=== PATIENT | female | born 1960 | race Caucasian/White ===

== ENCOUNTER → 2018-10-06 11:40 | Outpatient (CLI) | payer BC, SELFPAY ==
--- NOTE | 2018-10-06 11:49 | XR_ITS ---
XR chest 2V HISTORY: Pneumonia ITS.REASON: F/U PNEUMONIA ORDERING PHYSICIAN: Jaime Brenner PATIENT AGE: 58 years COMPARISON: 09/25/2018 FINDINGS: Unremarkable cardiovascular structures. The right lower lobe infiltrate is once again noted patient some improvement was some decreased attenuation compared to the previous exam. No effusions. The left lung is clear. IMPRESSION: Persistent but improving right lower lobe pneumonia. Recommend follow-up until clear
== END ==
PROVIDERS: PCP Family Medicine; Visit Provider Family Medicine
DX: J18.9 Pneumonia, unspecified organism (principal)
CPT/HCPCS: 71046

== ENCOUNTER 2023-10-05 14:33 | Outpatient (CLI) | payer BC, OTHER, SELFPAY ==
[2023-10-05 15:29] LABS: Hemoglobin A1C 7.2 % (4.0-6.0)
== END 2023-10-05 23:59 | disposition home or self-care (01) ==
LOC: LAB 14:36
PROVIDERS: PCP Physician Assistant; Visit Provider Physician Assistant
DX: E11.9 Type 2 diabetes mellitus without complications (principal); Z79.84 Long term (current) use of oral hypoglycemic drugs
CPT/HCPCS: 36415; 83036

== ENCOUNTER 2023-10-27 11:00 | Outpatient (CLI) | payer BC, OTHER, SELFPAY ==
--- NOTE | 2023-10-27 11:18 | XR_ITS ---
FINAL REPORT CLINICAL HISTORY: cellulitis, DFU COMPARISON: None FINDINGS: LEFT FOOT: Three views of the left foot were obtained. There is no acute fracture or dislocation. There is mild degenerative change. Calcaneal spurs are noted. There is no evidence of bony erosion. There is no soft tissue abnormality. IMPRESSION: Mild degenerative change without acute bony abnormality. Reviewed, Interpreted and Dictated by Prasanth Corrigan III, MD Transcribed by Aissatou Araujo Authenticated and [facility]
--- NOTE | 2023-10-27 11:18 | XR_ITS ---
FINAL REPORT CLINICAL HISTORY: cellulitis, DFU COMPARISON: None FINDINGS: RIGHT FOOT: Three views of the right foot were obtained. There is no acute fracture or dislocation. There is severe degenerative change of the 1st MTP. Mild degenerative change is noted elsewhere in the foot. There are small calcaneal spurs. There is no evidence of bony erosion. There is no soft tissue abnormality. IMPRESSION: Mild and severe degenerative changes without acute bony abnormality. Reviewed, Interpreted and Dictated by Prasanth Corrigan III, MD Transcribed by Aissatou Araujo Authenticated and [facility]
[2023-10-27 11:54] LABS: Basophils # 0.1 K/mm3 (0-0.2); Basophils % 0.8 % (0.1-2.0); Eosinophils # 0.4 K/mm3 (0.0-0.4); Eosinophils % 4.2 % (0.1-12.0); Hematocrit 38.1 % (37.0-47.0); Hemoglobin 12.2 g/dL (12.2-16.2); Lymphocytes # 2.5 K/mm3 (0.7-4.5); Lymphocytes % 25.4 % (10-50); Mean Corpuscular Hemoglobin 29.5 pg (27.0-31.2); Mean Platelet Volume 7.9 fl (7.4-10.4); Monocytes # 0.5 K/mm3 (0.1-1.0); Monocytes % 5.2 % (1.7-9.3); Neutrophils # 6.3 K/mm3 (1.8-7.8); Neutrophils % 64.4 % (37.0-80.0); Platelet Count 281 K/mm3 (142-424); Red Blood Count 4.14 M/mm3 (4.20-5.40); Red Cell Distribution Width 13.7 % (11.5-17.5); White Blood Count 9.8 K/mm3 (4.8-10.8)
[2023-10-27 12:15] LABS: Alanine Aminotransferase 32 U/L (12-78); Albumin Level 4.2 g/dl (3.5-5.0); Albumin/Globulin Ratio 1.6 (1.1-1.8); Alkaline Phosphatase 88 U/L (38-126); Anion Gap 15.4 mEq/L (5-15); Aspartate Amino Transferase 30 U/L (14-36); Bilirubin,Total 0.6 mg/dl (0.2-1.3); Blood Urea Nitrogen 19 mg/dl (7-17); Calcium 10.1 mg/dl (8.4-10.2); Carbon Dioxide 29 mmol/L (22.0-30.0); Chloride 101 mmol/L (98-107); Estimated Glomerular Filt Rate 63 ml/min (>60); GFR (African American) 77 ML/MIN (>60); Globulin 2.7 g/dL (1.3-3.2); Glucose 230 mg/dl (74-100); Potassium 4.4 mmoL/L (3.5-5.1); Sodium 141 mmol/L (136-145); Total Protein,Serum 6.9 g/dl (6.3-8.2); Uric Acid 3.9 mg/dl (2.5-6.2)
[2023-10-27 12:20] LABS: C-Reactive Protein 6.1 mg/L (0-4)
[2023-10-27 12:38] LABS: Erythrocyte Sedimentation Rate 22 mm/hr (0-30)
[2023-11-04 09:26] LABS: 1,25 Dihydroxy Vitamin D 24 pg/mL (.); 1,25-Dihydroxy, Vitamin D-2 <10 pg/mL (.); 1,25-Dihydroxy, Vitamin D-3 24 pg/mL (.)
== END 2023-10-27 23:59 | disposition home or self-care (01) ==
LOC: LAB 11:01
PROVIDERS: PCP Physician Assistant; Visit Provider Podiatrist
DX: E11.621 Type 2 diabetes mellitus with foot ulcer (principal); Z79.84 Long term (current) use of oral hypoglycemic drugs; L97.509 Non-pressure chronic ulcer of other part of unspecified foot with unspecified severity; L03.115 Cellulitis of right lower limb; Z68.26 Body mass index [BMI] 26.0-26.9, adult; M19.071 Primary osteoarthritis, right ankle and foot; M19.072 Primary osteoarthritis, left ankle and foot
CPT/HCPCS: 36415; 73630; 80053; 82652; 84550; 85025; 85651; 86140

== ENCOUNTER 2023-11-03 16:35 | Outpatient (CLI) | payer BC, OTHER, SELFPAY | END 2023-11-03 23:59 | disposition home or self-care (01) | LOC: LAB.DROPOF 16:36 | PROVIDERS: PCP Nurse Practitioner; Visit Provider Nurse Practitioner | DX: L97.412 Non-pressure chronic ulcer of right heel and midfoot with fat layer exposed (principal); E11.621 Type 2 diabetes mellitus with foot ulcer; B95.7 Other staphylococcus as the cause of diseases classified elsewhere; B95.62 Methicillin resistant Staphylococcus aureus infection as the cause of diseases classified elsewhere; Z79.84 Long term (current) use of oral hypoglycemic drugs | CPT/HCPCS: 87070; 87077; 87186; 87205 ==

== ENCOUNTER 2024-01-06 16:35 | Outpatient (CLI) | payer BC, OTHER, SELFPAY ==
[2024-01-06 17:04] LABS: Basophils # 0.1 K/mm3 (0-0.2); Basophils % 1.7 % (0.1-2.0); Eosinophils # 0.4 K/mm3 (0.0-0.4); Eosinophils % 5.4 % (0.1-12.0); Hematocrit 41.1 % (37.0-47.0); Hemoglobin 12.9 g/dL (12.2-16.2); Lymphocytes # 3.7 K/mm3 (0.7-4.5); Lymphocytes % 49.6 % (10-50); Mean Corpuscular HGB Conc 31.4 g/dL (31.8-35.4); Mean Corpuscular Hemoglobin 30.4 pg (27.0-31.2); Mean Corpuscular Volume 96.9 fl (81-99); Mean Platelet Volume 7.9 fl (7.4-10.4); Monocytes # 0.4 K/mm3 (0.1-1.0); Neutrophils # 2.8 K/mm3 (1.8-7.8); Neutrophils % 38.3 % (37.0-80.0); Platelet Count 319 K/mm3 (142-424); Red Blood Count 4.24 M/mm3 (4.20-5.40); White Blood Count 7.4 K/mm3 (4.8-10.8)
[2024-01-06 17:27] LABS: Erythrocyte Sedimentation Rate 16 mm/hr (0-30)
[2024-01-06 17:54] LABS: Potassium 4.3 mmoL/L (3.5-5.1); Sodium 137 mmol/L (136-145)
[2024-01-06 17:55] LABS: Alanine Aminotransferase 32 U/L (12-78); Albumin Level 4.6 g/dl (3.5-5.0); Albumin/Globulin Ratio 1.5 (1.1-1.8); Alkaline Phosphatase 72 U/L (38-126); Anion Gap 14.3 mEq/L (5-15); Aspartate Amino Transferase 33 U/L (14-36); Bilirubin,Total 0.5 mg/dl (0.2-1.3); Blood Urea Nitrogen 17 mg/dl (7-17); C-Reactive Protein 0.7 mg/L (0-4); Calcium 9.9 mg/dl (8.4-10.2); Carbon Dioxide 25 mmol/L (22.0-30.0); Chloride 102 mmol/L (98-107); Estimated Glomerular Filt Rate 85 ml/min (>60); GFR (African American) 102 ML/MIN (>60); Globulin 3.1 g/dL (1.3-3.2); Glucose 181 mg/dl (74-100); Total Protein,Serum 7.7 g/dl (6.3-8.2); Uric Acid 3.3 mg/dl (2.5-6.2)
== END 2024-01-06 23:59 | disposition home or self-care (01) ==
LOC: LAB 16:36
PROVIDERS: PCP Family Medicine; Visit Provider Nurse Practitioner
DX: E11.9 Type 2 diabetes mellitus without complications (principal); M1A.09X0 Idiopathic chronic gout, multiple sites, without tophus (tophi)
CPT/HCPCS: 36415; 80053; 84550; 85025; 85651; 86140

== ENCOUNTER 2024-01-19 14:57 | Outpatient (CLI) | payer BC, OTHER, SELFPAY ==
--- NOTE | 2024-01-19 | US_ITS ---
FINAL REPORT CLINICAL HISTORY: DM, bilateral rest pain, bilateral rest pain COMPARISON: None FINDINGS: ANKLE-BRACHIAL PRESSURE INDICES Pressure indices are as follows: RIGHT LOWER EXTREMITY: Ankle-brachial pressure index: 1.04 Comments: Normal LEFT LOWER EXTREMITY: Ankle-brachial pressure index: 0.98 Comments: Normal CONCLUSION: No evidence of significant obstructive peripheral vascular disease of the lower extremities Reviewed, Interpreted and Dictated by Prasanth Corrigan III, MD Transcribed by Vanessa Jung Authenticated and [facility]
== END 2024-01-19 23:59 | disposition home or self-care (01) ==
LOC: RT 14:58
PROVIDERS: PCP Family Medicine; Visit Provider Podiatrist
DX: M19.071 Primary osteoarthritis, right ankle and foot (principal); M19.072 Primary osteoarthritis, left ankle and foot
CPT/HCPCS: 93923

== ENCOUNTER 2024-01-31 14:59 | Outpatient (CLI) | payer BC, OTHER, SELFPAY ==
--- NOTE | 2024-01-31 15:00 | MR_ITS ---
FINAL REPORT CLINICAL HISTORY: evaluate for Subchon. bone cyst, surgical planning COMPARISON: None FINDINGS: Multiplanar MR imaging of the right foot was performed without contrast. On the sagittal images, there are marked hypertrophic changes at the first metatarsal phalangeal joint. Advanced joint space narrowing is noted. There is hypertrophic osteophyte formation and degenerative subchondral cyst formation at the distal first metatarsal and at the base of the first proximal phalanx. In addition, there is a large ossific fragment at the dorsal aspect of the first metatarsal phalangeal joint measuring 1.9 cm, well-seen on image 25 of series 7. Mild hammertoe deformities are noted of the 2nd through 5th digits. The bony structures are intact without evidence of fracture. The flexor and extensor tendons are intact. The musculature is intact. The plantar aponeurosis is intact. No soft tissue mass or cyst is identified. IMPRESSION: Marked hypertrophic changes of osteoarthritis at the first metatarsophalangeal joint with osteophytes, fragmentation, and degenerative cyst formation. Reviewed, Interpreted and Dictated by Twan Abdalla MD Transcribed by Aissatou Araujo Authenticated and . [facility]
== END 2024-01-31 23:59 | disposition home or self-care (01) ==
LOC: RAD 15:00
PROVIDERS: PCP Family Medicine; Visit Provider Podiatrist
DX: E11.8 Type 2 diabetes mellitus with unspecified complications (principal); M1A.09X0 Idiopathic chronic gout, multiple sites, without tophus (tophi)
CPT/HCPCS: 73718

== ENCOUNTER 2024-01-31 16:49 | Outpatient (CLI) | payer BC, OTHER, SELFPAY ==
[2024-01-31 18:05] LABS: Basophils # 0.1 K/mm3 (0-0.2); Basophils % 1.5 % (0.1-2.0); Eosinophils # 0.5 K/mm3 (0.0-0.4); Eosinophils % 6.8 % (0.1-12.0); Hematocrit 38.5 % (37.0-47.0); Hemoglobin 11.7 g/dL (12.2-16.2); Lymphocytes % 52.5 % (10-50); Mean Corpuscular HGB Conc 30.4 g/dL (31.8-35.4); Mean Corpuscular Hemoglobin 29.6 pg (27.0-31.2); Mean Corpuscular Volume 97.5 fl (81-99); Mean Platelet Volume 8.1 fl (7.4-10.4); Monocytes # 0.4 K/mm3 (0.1-1.0); Monocytes % 5.5 % (1.7-9.3); Neutrophils # 2.6 K/mm3 (1.8-7.8); Neutrophils % 33.8 % (37.0-80.0); Platelet Count 378 K/mm3 (142-424); Red Blood Count 3.95 M/mm3 (4.20-5.40); White Blood Count 7.7 K/mm3 (4.8-10.8)
[2024-01-31 18:10] LABS: Albumin Level 4.3 g/dl (3.5-5.0)
[2024-01-31 18:13] LABS: Alanine Aminotransferase 23 U/L (12-78); Alkaline Phosphatase 90 U/L (38-126); Aspartate Amino Transferase 23 U/L (14-36); Bilirubin,Direct 0.3 mg/dl (0.0-0.4); Bilirubin,Indirect 0.3 mg/dL (0.0-0.9); Bilirubin,Total 0.6 mg/dl (0.2-1.3); Bilirubin,Unconjugated 0.3 mg/dL (0.0-1.1); Estimated Glomerular Filt Rate 72 ml/min (>60); GFR (African American) 88 ML/MIN (>60); Total Protein,Serum 6.9 g/dl (6.3-8.2)
[2024-01-31 18:44] LABS: MANUAL DIFFERENTIAL MANUAL DIFFERENTIAL (MANUAL DIFF)
[2024-01-31 18:51] LABS: Uric Acid 3.9 mg/dl (2.5-6.2)
[2024-01-31 22:16] LABS: Anisocytosis 1+; Burr Cells 1+; Eosinophils % 6 % (0-3); Lymphocytes % 64 % (10-50); Monocytes % 2 % (2-9); Neutrophils % 28 % (42-76); Ovalocytes 1+; Poikilocytosis 1+; Total Cells Counted 100
[2024-01-31 22:17] LABS: Platelet Estimate Slight Increase
== END 2024-01-31 23:59 | disposition home or self-care (01) ==
LOC: LAB 16:51
PROVIDERS: PCP Family Medicine; Visit Provider Internal Medicine
DX: M06.09 Rheumatoid arthritis without rheumatoid factor, multiple sites (principal); Z79.899 Other long term (current) drug therapy; M10.09 Idiopathic gout, multiple sites
CPT/HCPCS: 36415; 80076; 82565; 84550; 85007; 85025; 85027

== ENCOUNTER 2024-03-06 09:57 | Outpatient (CLI) | payer BC, OTHER, SELFPAY | END 2024-03-06 23:59 | disposition home or self-care (01) | LOC: LAB.DROPOF 03-07 09:57 | PROVIDERS: PCP Podiatrist; Visit Provider Podiatrist | DX: E11.621 Type 2 diabetes mellitus with foot ulcer (principal); L97.411 Non-pressure chronic ulcer of right heel and midfoot limited to breakdown of skin; Z79.84 Long term (current) use of oral hypoglycemic drugs | CPT/HCPCS: 87070; 87205 ==

== ENCOUNTER 2024-03-20 15:52 | Outpatient (CLI) | payer BC, OTHER, SELFPAY ==
--- NOTE | 2024-03-20 16:04 | XR_ITS ---
FINAL REPORT CLINICAL HISTORY: Nonspecific cough COMPARISON: None FINDINGS: Two views of the chest were obtained. The heart size and pulmonary vascularity are within normal limits. The mediastinum is normal. No acute pulmonary abnormality is identified. There is no pneumothorax. The bony thorax is intact. IMPRESSION: No active cardiopulmonary disease. Reviewed, Interpreted and Dictated by Prasanth Corrigan III, MD Transcribed by Aissatou Araujo Authenticated and [facility]
--- NOTE | 2024-03-20 16:19 | ECG_ITS ---
APPROVED REPORT Exam: Resting ECG HR:75 bpm ECG Measurements Heart Rate 75 AXES SD 160 P 67 QRSd 78 QRS 66 QT 382 T 66 QTc 411 Conclusion SINUS RHYTHM NORMAL ECG UNCONFIRMED REPORT Electronically signed by : Timoteo Jefferson MD 03/21/2024 08:36:03
[2024-03-20 16:29] LABS: Basophils # 0.1 K/mm3 (0-0.2); Basophils % 1.6 % (0.1-2.0); Eosinophils # 0.3 K/mm3 (0.0-0.4); Eosinophils % 3.8 % (0.1-12.0); Hematocrit 37.9 % (37.0-47.0); Hemoglobin 12.7 g/dL (12.2-16.2); Lymphocytes # 3.7 K/mm3 (0.7-4.5); Lymphocytes % 47.9 % (10-50); Mean Corpuscular HGB Conc 33.6 g/dL (31.8-35.4); Mean Corpuscular Hemoglobin 29.9 pg (27.0-31.2); Mean Corpuscular Volume 89.1 fl (81-99); Mean Platelet Volume 7.8 fl (7.4-10.4); Monocytes # 0.3 K/mm3 (0.1-1.0); Monocytes % 4.1 % (1.7-9.3); Neutrophils # 3.3 K/mm3 (1.8-7.8); Neutrophils % 42.7 % (37.0-80.0); Platelet Count 306 K/mm3 (142-424); Red Blood Count 4.25 M/mm3 (4.20-5.40); Red Cell Distribution Width 13.6 % (11.5-17.5); White Blood Count 7.7 K/mm3 (4.8-10.8)
[2024-03-20 16:56] LABS: Alanine Aminotransferase 32 U/L (12-78); Albumin Level 4.7 g/dl (3.5-5.0); Albumin/Globulin Ratio 1.8 (1.1-1.8); Alkaline Phosphatase 76 U/L (38-126); Anion Gap 14.4 mEq/L (5-15); Aspartate Amino Transferase 31 U/L (14-36); Bilirubin,Total 0.6 mg/dl (0.2-1.3); Blood Urea Nitrogen 15 mg/dl (7-17); Calcium 9.6 mg/dl (8.4-10.2); Carbon Dioxide 22 mmol/L (22.0-30.0); Chloride 104 mmol/L (98-107); Estimated Glomerular Filt Rate 72 ml/min (>60); GFR (African American) 88 ML/MIN (>60); Globulin 2.6 g/dL (1.3-3.2); Glucose 150 mg/dl (74-100); Potassium 4.4 mmoL/L (3.5-5.1); Sodium 136 mmol/L (136-145); Total Protein,Serum 7.3 g/dl (6.3-8.2)
[2024-03-20 17:02] LABS: Erythrocyte Sedimentation Rate 16 mm/hr (0-30)
[2024-03-20 17:03] LABS: C-Reactive Protein 0.8 mg/L (0-4)
[2024-03-20 17:39] LABS: Hemoglobin A1C 7.1 % (4.0-6.0)
== END 2024-03-20 23:59 | disposition home or self-care (01) ==
LOC: LAB 15:53
PROVIDERS: PCP Family Medicine; Visit Provider Podiatrist
DX: Z01.818 Encounter for other preprocedural examination (principal); E11.40 Type 2 diabetes mellitus with diabetic neuropathy, unspecified
CPT/HCPCS: 36415; 71046; 80053; 83036; 85025; 85651; 86140; 93005

== ENCOUNTER 2024-04-19 09:12 | Day surgery (SDC) | payer BC, OTHER, SELFPAY ==
[2024-04-18 09:32] VITALS: BMI 25.5
[2024-04-19 10:24] VITALS: BP 114/66; PULSE 72; RESP 18; TEMP 36.1; O2SAT 100; BMI 25.5
[2024-04-19] MEDS: LACTATED RINGERS 1000ML 1,000 ML 25 ML IV (10:32)
[2024-04-19 10:49] LABS: POC Glucose,Bedside 127 (70-110)
--- NOTE | 2024-04-19 10:59 | P.PNANES_ITS ---
[facility] Disclaimer: The information contained in this section may have been updated after the patient was seen, as this information can be updated by other users. Medical History HLD (hyperlipidemia) Rheumatoid arthritis Diabetic foot ulcer Diabetes mellitus Surgical History History of laparoscopic cholecystectomy History of hysterectomy Family History Other Diabetes Hypertension Social History Smoking Status: Never smoker alcohol intake: never substance use type: denies use current occupational status: employed Travel in the last 8 weeks: None household members: spouse, family and children housing: house [facility] Anesthesia Checklist Patient Identification Patient Identification: Arm Band and Family Structural Data Admitted From: Emergency Dept Planned Operative Procedure/s: Right foot ound debridement Consent for Planned Operative Procedure(s) Verified: Yes Verified Documents: Surgical Consent and History and Physical NPO Status Verified Time NPO: 00:00 Additional verifications Patient : No Anesthesia Reactions: No Hx Blood Transfusions: No Blood Transfusion Reaction: No Cephalosporin Allergy: No Previous Colonoscopy: Yes Airway Assessment Mallampati Score:: Class I C-Spine Mobility Assessed: Yes TMJ Mobility Assessed: Yes Dentition: Good Dentition Neurological Assessment Level of Consciousness: Awake, Alert, Appropriate and Follows Commands Hx Seizures: No Numbness or tingling in extremities: No Anesthesia Plan Anesthesia Risk discussed: Yes ASA Class: II Anesthesia Type: General Preoperative Comments Pre-Operative Comments: Autoimmune disease under diagnostics. NIDDM. Matias MCMAHON. RH.
[2024-04-19] MEDS: VANCOMYCIN/WATER FOR INJ (PEG) 1.25 GM/250 ML PIGGYBACK IV (11:20)
[2024-04-19] MEDS: BUPIVACAINE 0.5% 30ML VIAL 150 MG (11:54)
[2024-04-19] MEDS: GENTAMICIN 80 MG/2 ML VIAL (11:54)
[2024-04-19 12:20] VITALS: BP 144/86; PULSE 83; RESP 16; TEMP 36.2; O2SAT 98
--- NOTE | 2024-04-19 12:28 | EXP.ANES.I ---
[facility] Anesthesia Record Part I Anesthesia Record I Intake, IV Amount: 650 Hydration: Adequate Estimated blood loss (mL): 14 Urine output (mL): 0 Blood Products used (#): none Blood Pressure: 144/86 SaO2: 98 Pulse Rate: 83 Airway Patency: Patent Respiratory Rate: 16 Temperature: 97.1 F Patient is:: Drowsy and Stable Stable to PACU at:: 12:20
[2024-04-19 12:30] VITALS: BP 136/84; BP 144/86; PULSE 79; PULSE 83; RESP 16; TEMP 36.2; O2SAT 98
[2024-04-19 12:31] LABS: POC Glucose,Bedside 110 (70-110)
--- NOTE | 2024-04-19 12:34 | EXP.OP.NOTE ---
Date of procedure: 04/19/24 Pre-op Diagnosis:: Right diabetic foot ulcer Right foot cellulitis Right first MPJ hallux rigidus, OA RA Gout Post-op Diagnosis:: Same Procedure performed:: Right foot wound debridement Cheilectomy first metatarsal wo implant Delayed primary closure Bone biopsy Surgeon:: Heaven Ng DPM LOAN OPERATIONS SPECIALIST:: Frank Poole Anesthesia: GETA and local (30cc 0.5% Marcaine plain) Estimated blood loss (mL): 15 Clinical Note:: Patient is a 63-year-old diabetic female with a history of gout and RA. Patient has had diabetic foot ulcer with recurrence and cellulitis. 03/06/2024 right foot wound culture had no growth. Has had x-rays, CT and MRI right foot. No obvious evidence of osteomyelitis noted but concern discussed due to recurrent ulceration and difficulty with healing. Images were discussed with the patient. We discussed conservative versus surgical treatment options. Discussed stage surgery options. Stage 1: right foot wound debridement, ulcer excision, bone biopsy, (gout specimen and r/o OM). Then discussed if bx is negative for infection, then plan stage 2: right foot 1st MTPJ fusion. We discussed conservative care including continued oral vs IV antibiotics and local wound care versus surgical incision and drainage or ampuation if OM noted. Patient understands that they could have wound healing complications including delayed healing and infection. We discussed that if the wound does not heal, it is possible that they may need further debridement. Patient understands if infection spreads into the bone, it may warrant proximal amputation and could result in further loss of digits, loss of partial foot or loss of leg. We discussed the risks and benefits in great detail. Other surgical risks include: prolonged pain and swelling, further infection requiring oral or IV antibiotics, delay in healing of soft tissue or bone, nerve or blood vessel damage, CRPS/RSD, DV/PE, anesthesia complications, and even . All questions answered. Patient verbalized understanding. Written consent obtained. Operative findings:: Right dorsal foot first metatarsal ulcer mostly healed. Periwound cellulitis noted. Wound: 100% brown eschar and measured 0.4 x 0.2 x 0.0 cm. Wound excised completely. No underlying purulence malodor or drainage noted. Significant spurring to the dorsal aspect of the first MTPJ. Bone spurs were removed and more soft with no purulence. Significant end-stage arthritis noted to the first MTPJ secondary to arthritis, gout, RA and diabetes. This is a staged planned surgery to rule out infection and osteomyelitis prior to proceeding with stage II: Right first MTPJ fusion. Operative note:: On this date and time patient was deemed an appropriate surgical candidate. With informed consent signed, the patient was taken to the operating theater. The patient was positioned supine. General anesthesia was induced. No tourniquet used. Pre-op right foot and ankle block given with 30 cc 0.5% marcaine plain. IV Vanco infused. Right wound debridement: The lower extremity was prepped and draped in normal sterile fashion. Ulcer noted to the medial dorsal first MTPJ. See operative finding for details. There was no periwound maceration. Sharp excisional full-thickness debridement with a 15 blade through skin into subcutaneous tissue. No obvious purulence or deep signs of infection noted. Decision made to excise wound full-thickness as skin was fragile and compromised from fibrotic scar tissue from several ulcer healing and reulcerating. Wound was excised. Bleeding skin edges. Right foot cheilectomy, bone biopsy: Next full-thickness dissection down to level of the bone. Significant first metatarsal exostosis and bone spur noted. Rongeur used to remove the bone spur. Piece was sent for bone culture and a piece for pathology. Next synovitic tissue from the first metatarsal phalangeal joint was excised. Attention was directed more proximal where a clean rongeur was used to remove a piece of the bone directly underlying the prior wound site, it was sent for bone culture. The bone was soft but no purulence noted from the bone. Significant arthritic change to both the base of the proximal phalanx of the first metatarsal secondary to arthritis, RA, gout. Wound was flushed with gentamicin irrigation Right foot delayed primary closure: Post debridement, there was some bleeding was noted. The wound was reexplored and no further signs of infection noted. Vicryl was used to reapproximate the capsule over the joint. Nylon was used to close skin in an interrupted simple suture fashion. Xeroform, Betadine soaked gauze, dry sterile dressing then applied to the right foot. Patient tolerated the procedure and local anesthesia well, without complications. Discharge/Plan: Ok to discharge home when ready and vss. Patient is to maintain dressing clean dry and intact. Elevate on two pillows. Continue antibiotics (Clinda). Partial weight bearing to the right lower extremity in fracture boot with walker. Follow up as scheduled for dressing change. Condition: stable Disposition: same day Specimens:: Right tissue ulcer culture Right 1st MTPJ bone culture Right 1st metatarsal bone culture Right 1st metatarsal bone path Complications:: None
--- NOTE | 2024-04-19 12:45 | XR_ITS ---
FINAL REPORT CLINICAL HISTORY: Post cheilectomy, bone bx COMPARISON: None FINDINGS: RIGHT FOOT: Three views of the right foot were obtained. There is no acute fracture or dislocation. There is severe degenerative change of the first MTP joint. Small calcaneal spurs are present as well. There is no soft tissue abnormality. IMPRESSION: Severe degenerative change of the first MTP joint as described. Reviewed, Interpreted and Dictated by Prasanth Corrigan III, MD Transcribed by Vanessa Jung Authenticated and . [facility]
[2024-04-19 12:50] VITALS: BP 110/76; BP 136/84; PULSE 78; PULSE 79; RESP 16; O2SAT 98
[2024-04-19 13:05] VITALS: BP 139/55; PULSE 75; RESP 16; O2SAT 98
[2024-04-19 13:20] VITALS: BP 140/86; PULSE 75; RESP 16; O2SAT 98
--- NOTE | 2024-04-20 13:02 | P.PNANES_ITS ---
[facility] Anesthesia Record Part II Anesthesia Record Part II Discharge Time: 12:50 Destination: Surgical Day Care (OP Surgery) PACU nurse assessment reviewed?: Yes Patient Condition:: Good Anesthesia Complications:: None Swallowing reflex intact?: Yes Airway Patency: Patent Cyanosis?: No Blood Pressure: 136/84 SaO2: 98 Respiratory Rate: 16 Pulse Rate: 79 Temperature: 97.1 F Mental Status: Alert & Oriented Pain level:: 0 Nausea and/or vomitting:: None Intake, IV Amount: 0 Hydration: Adequate
[2024-04-20 13:04] VITALS: BP 136/84; PULSE 79; RESP 16; O2SAT 98
[2024-04-20 13:12] VITALS: TEMP 36.2
== END 2024-04-19 13:30 | disposition home or self-care (01) ==
PROVIDERS: PCP Family Medicine; Visit Provider Podiatrist
PROC: (CPT 11042; principal; 2024-04-19 10:45)
DX: E11.621 Type 2 diabetes mellitus with foot ulcer (principal); I10 Essential (primary) hypertension; Z79.84 Long term (current) use of oral hypoglycemic drugs; Z79.899 Other long term (current) drug therapy; L97.411 Non-pressure chronic ulcer of right heel and midfoot limited to breakdown of skin; M79.671 Pain in right foot; M19.071 Primary osteoarthritis, right ankle and foot; M77.8 Other enthesopathies, not elsewhere classified
CPT/HCPCS: 11042; 28289; 73630; 82962; 87070; 87205; 88304; 96374; C9144; J1100; J1580; J2250; J2405; J3010; J3372; J7120

== ENCOUNTER 2024-05-05 15:14 | Outpatient (CLI) | payer BC, OTHER, SELFPAY | END 2024-05-05 23:59 | disposition home or self-care (01) | LOC: LAB.DROPOF 05-08 11:44 | PROVIDERS: PCP Family Medicine; Visit Provider Family Medicine | DX: N39.0 Urinary tract infection, site not specified (principal); B96.4 Proteus (mirabilis) (morganii) as the cause of diseases classified elsewhere | CPT/HCPCS: 87086; 87088; 87186 ==

== ENCOUNTER 2024-05-18 11:25 | Outpatient (CLI) | payer BC, OTHER, SELFPAY ==
--- NOTE | 2024-05-18 11:46 | XR_ITS ---
FINAL REPORT CLINICAL HISTORY: foot pain COMPARISON: 04/19/2024 FINDINGS: AP, oblique and lateral views of the right foot were obtained. There is no acute fracture or dislocation. Again seen is advanced degenerative disease at the first MTP joint with large osteophytes and multiple subchondral cysts. There is periosteal reaction along the medial aspect of the distal first metatarsal, superimposed osteomyelitis is not excluded. There is diffuse soft tissue edema of the forefoot. IMPRESSION: New periosteal reaction along the medial aspect of the distal first metatarsal, osteomyelitis of the first MTP joint superimposed upon advanced degenerative disease is not excluded. Consider MRI if indicated. Reviewed, Interpreted and Dictated by Krissy John MD Transcribed by Sabrina Skelton Authenticated and [facility]
[2024-05-18 11:59] LABS: Basophils # 0.1 K/mm3 (0-0.2); Eosinophils # 0.5 K/mm3 (0.0-0.4); Eosinophils % 6.2 % (0.1-12.0); Hematocrit 37.9 % (37.0-47.0); Hemoglobin 12.2 g/dL (12.2-16.2); Lymphocytes # 3.4 K/mm3 (0.7-4.5); Lymphocytes % 42.5 % (10-50); Mean Corpuscular HGB Conc 32.2 g/dL (31.8-35.4); Mean Corpuscular Hemoglobin 29.1 pg (27.0-31.2); Mean Corpuscular Volume 90.5 fl (81-99); Mean Platelet Volume 9.9 fl (7.4-10.4); Monocytes # 0.5 K/mm3 (0.1-1.0); Monocytes % 5.7 % (1.7-9.3); Neutrophils # 3.6 K/mm3 (1.8-7.8); Neutrophils % 44.4 % (37.0-80.0); Platelet Count 295 K/mm3 (142-424); Red Blood Count 4.19 M/mm3 (4.20-5.40); Red Cell Distribution Width 12.5 % (11.5-17.5); White Blood Count 8.1 K/mm3 (4.8-10.8)
--- NOTE | 2024-05-18 12:09 | ECG_ITS ---
APPROVED REPORT Exam: Resting ECG HR:72 bpm ECG Measurements Heart Rate 72 AXES NH 156 P 65 QRSd 79 QRS 66 QT 379 T 67 QTc 403 Conclusion SINUS RHYTHM LOW QRS VOLTAGE IN PRECORDIAL LEADS [QRS DEFLECTION < 1.0 mV IN CHEST LEADS] BORDERLINE ECG UNCONFIRMED REPORT Electronically signed by : Timoteo Jefferson MD 05/18/2024 13:58:33
[2024-05-18 12:31] LABS: Alanine Aminotransferase 30 U/L (12-78); Albumin Level 4.6 g/dl (3.5-5.0); Albumin/Globulin Ratio 1.8 (1.1-1.8); Alkaline Phosphatase 91 U/L (38-126); Anion Gap 11.5 mEq/L (5-15); Aspartate Amino Transferase 30 U/L (14-36); Bilirubin,Total 0.5 mg/dl (0.2-1.3); Blood Urea Nitrogen 14 mg/dl (7-17); Carbon Dioxide 30 mmol/L (22.0-30.0); Chloride 103 mmol/L (98-107); Estimated Glomerular Filt Rate 63 ml/min (>60); GFR (African American) 77 ML/MIN (>60); Globulin 2.5 g/dL (1.3-3.2); Glucose 155 mg/dl (74-100); Potassium 4.5 mmoL/L (3.5-5.1); Sodium 140 mmol/L (136-145); Total Protein,Serum 7.1 g/dl (6.3-8.2)
[2024-05-18 12:43] LABS: C-Reactive Protein 0.7 mg/L (0-4)
[2024-05-18 13:06] LABS: Erythrocyte Sedimentation Rate 15 mm/hr (0-30)
== END 2024-05-18 23:59 | disposition home or self-care (01) ==
LOC: LAB 11:27
PROVIDERS: PCP Family Medicine; Visit Provider Podiatrist
DX: Z01.818 Encounter for other preprocedural examination (principal); M79.671 Pain in right foot
CPT/HCPCS: 36415; 73630; 80053; 85025; 85651; 86140; 93005

== ENCOUNTER 2024-05-24 10:32 | Day surgery (SDC) | payer BC, OTHER, SELFPAY ==
[2024-05-18 16:56] VITALS: BMI 25.8
[2024-05-24] VITALS (9 sets, daily range): BP systolic 115–148; BP diastolic 65–86; PULSE 77–96; RESP 14–18; TEMP 36.2–36.7; O2SAT 95–100
[2024-05-24] MEDS: VANCOMYCIN/WATER FOR INJ (PEG) 1.5 GM/300 ML PIGGYBACK IV (11:00)
[2024-05-24] MEDS: LACTATED RINGERS 1000ML 1,000 ML 25 ML IV (11:09)
--- NOTE | 2024-05-24 11:15 | P.PNANES_ITS ---
[facility] Disclaimer: The information contained in this section may have been updated after the patient was seen, as this information can be updated by other users. Medical History Gout HLD (hyperlipidemia) Rheumatoid arthritis Diabetic foot ulcer Diabetes mellitus Surgical History History of laparoscopic cholecystectomy History of hysterectomy Family History Other Diabetes Hypertension Social History (Updated 05/24/24 @ 10:51 by Rachel Blanco RN) Smoking Status: Never smoker alcohol intake: never substance use type: denies use current occupational status: employed Travel in the last 8 weeks: None household members: spouse, family and children housing: house Have you lived/traveled outside [place] in past 30 days?: No Contact w/someone who lives/traveled outside [place] past 30 days?: No Exposure to someone with infectious disease in past 14 days?: No Do you have a fever (greater than 100.4 F or 38 C)?: No Have you tested positive for COVID-19: No Exposed to someone with COVID-19 in past 14 days?: No Do you have a sore throat?: No Do you have a cough?: No Do you have any weakness?: No Are you experiencing any nausea/vomitting?: No Do you have any diarrhea?: No Are you experiencing any unusual bleeding?: No Do you have any muscle aches/pain?: No Do you have any abdominal pain?: No Are you experiencing loss of taste or smell?: No [facility] Anesthesia Checklist Patient Identification Patient Identification: Arm Band, Family and Verbal (Name & ) Structural Data Admitted From: Home Planned Operative Procedure/s: RT 1st metatarsal phalangeal joint arthrodesis, poss calcaneal bone graft Consent for Planned Operative Procedure(s) Verified: Yes Verified Documents: Surgical Consent and History and Physical NPO Status Verified Time NPO: 00:00 Chart Verification Results Verified: CBC, BMP, ECG and Chest Xray Additional verifications Fingerstick Blood Glucose: 143 Patient : No Anesthesia Reactions: No Hx Blood Transfusions: No Blood Transfusion Reaction: No Cardiovascular Assessment Heart Sounds: S1 & S2 Pulse Rhythm: Irregular Peripheral Edema: No Airway Assessment Mallampati Score:: Class II C-Spine Mobility Assessed: Yes (FROM) TMJ Mobility Assessed: Yes Dentition: Good Dentition (Nothing loose per pt.) Neurological Assessment Level of Consciousness: Awake, Alert, Appropriate and Follows Commands Hx Seizures: No Numbness or tingling in extremities: No Anesthesia Plan Anesthesia Risk discussed: Yes Anesthesia Plan: Verified ASA Class: III Anesthesia Type: General w/block
--- NOTE | 2024-05-24 11:48 | P.OP_ITS ---
Date of procedure: 05/24/24 Pre-op Diagnosis:: Right foot OA, gout, RA Right hallux rigidus Right foot pain S/p right 1st MTPJ bone biopsy on 04/19/24 Post-op Diagnosis:: Same Procedure performed:: Right foot 1st MTPJ arthrodesis (89608) w/Allograft bone (structural) Calcaneal autograft bone harvest () Sesamoidectomy Repair flexor (hallucis longus) tendon Surgeon:: Heaven Ng DPM CREATIVE SERVICES DESIGNER:: Alma Saavedra Anesthesia: GETA and regional (R nerve block) Estimated blood loss (mL): 30 Clinical Note:: Patient is a 63-year-old diabetic female with a history of gout and RA. Patient has had diabetic foot ulcer with recurrence and cellulitis. 03/06/2024 right foot wound culture had no growth. Has had x-rays, CT and MRI right foot. No obvious evidence of osteomyelitis. Images were discussed with the patient. We discussed conservative vs surgical treatment options. Discussed stage surgery options to rule out OM/deep infection prior to implanting hardware for fusion. Stage 1: right foot wound debridement, ulcer excision, bone biopsy performed on 04/19/24. Since stage one surgery cultures and path were all negative for infection, then plan stage 2: right foot 1st MTPJ fusion with autograft bone harvest. We discussed conservative care including continued oral vs IV antibiotics and local wound care versus surgical incision and drainage or amputation if OM noted. Patient understands that they could have wound healing complications including delayed healing and infection. We discussed that if the wound does not heal, it is possible that they may need further debridement. Patient understands if infection spreads into the bone, it may warrant proximal amputation and could result in further loss of digits, loss of partial foot or loss of leg. We discussed the risks and benefits of stage 2 in detail. Other surgical risks include: prolonged/permanent pain and swelling, malunion, delayed union or nonunion, painful hardware, need for implant removal, need for further surgery, recurrent infection requiring oral or IV antibiotics, delay in healing of soft tissue or bone, nerve or blood vessel damage, CRPS/RSD, DV/PE, anesthesia complications, and even . All questions answered. Patient verbalized understanding. Written consent obtained. Discussed maddie op protocols: stage 1-post op PWB in fx boot w/ walker, avoid edema vs stage 2: NWB x3 weeks then PWB in fx boot. All questions answered. Patient verbalized understanding and agreement with treatment plan. Operative findings:: Right first metatarsal phalangeal joint had significant fibrosis and scarring secondary to healed DFU and prior surgery. No purulence, malodor, drainage or other signs of infection noted. Soft tissue was adhered so there was no definitive tissue layers. Nerve was entrapped into the medial proximal tissue over the metatarsal neck and proximally. Soft tissue was also adhered to the level of the bone. Bone had several areas of defects from subchondral bone cysts. These areas were curetted out and no signs of bone infection appreciated. Sesamoids had significant and adhered to the medial capsule of the second MTPJ as well as the lateral plantar first MTPJ capsule. Due to the significant abnormal jagged irregular hypertrophic bone circumferentially around the first MTPJ, there was impingement of the flexor tendon with a tear of the flexor tendon noted between the sesamoids. Sesamoids were removed and the flexor (FHL) tendon was repaired. Once the joint was prepared prior to insertion of any autograft/allograft, there was a 0.9 cm bone defect/bone space between the proximal phalanx and distal metatarsal when the first ray was held out to length/lined up with the second toe. At closure, skin was fragile but no dusky skin or necrosis noted. It was medically necessary to utilize structural graft to provide length to the short first ray, autograft due to the history of DM, ulcer, RA, healing risk and allograft to fill in defects. Modifier: This was a planned staged procedure within the postop period from 04/19/24, s/p Stage 1: Right foot open bone biopsy. Modifier: this case took 45 minutes longer than normal due to the revisional nature of the procedure, significant fibrosis and scar tissue, defect in the bone secondary to multiple subchondral bone cyst warranting both structural allograft and autograft correction to lengthen the first ray, patient's body habitus with increased comp lexity of the skin dissection/closure due to more tissue volume/scar fibrosis, poor skin quality due to diabetes and RA. Operative note:: On this date and time patient was deemed an appropriate surgical candidate. With informed consent signed, the patient was taken to the operating theater after regional popliteal nerve block by anesthesia. Patient was positioned supine. General anesthesia was induced. 1g IV Vanco (hx MRSA) given. Tourniquet was applied to the right mid-calf @225mmHg. The right lower extremity was prepped and draped in normal sterile fashion. Right calcaneal autograft bone harvest: Attention was directed to the lateral foot where intraoperative fluoroscopy was utilized to map out a percutaneous vision on the lateral calcaneus. Dissection was carried down full-thickness to the heel. A bone graft harvest system utilized to take 6 mm of bone from the calcaneus. Area was flushed. Nylon used to reapproximate the skin. Right foot sesamoidectomy, Flexor (FHL) tendon repair: Attention was directed to the 1st metatarsophalangeal joint (MPJ), where a dorsal linear incision was mapped out over prior scar, well healed surgical incision from proximal HIPJ to proximal on the met shaft. The tourniquet was inflated at 225 mmHg. Full- thickness dissection with care taken to maintain surgical hemostasis and safely retract neurovascular structures. Nerve entrapment, see op findings. Dissection was then carried through fibrotic scar tissue, deep fascia linearly over the 1st MTPJ, exposing the prior surgical site. Severe degenerative arthritis with wearing of cartilage on the metatarsal head and proximal phalanx. Significant circumferential including plantar and lateral spurring noted to the base of the proximal phalanx and first met. It was removed with a rongeur. The sesamoids were noted to be arthritic and adhered to the plantar capsule and flexor tendon. Soft tissue surrounding the first MTPJ was released. The soft tissue was very adhered down to the bone. A McGlamry elevator was used to pass underneath the metatarsal heads releasing more of the contracture. Due to the significant scarring and adhesion of the sesamoids, decision made to remove the sesamoids in total. Upon removal of the sesamoids, the flexor hallucis longus tendon was noted to be shredded. Vicryl used to repair the ends of the tendon but tendon was very thin from rubbing against the arthritic hypertrophied sesamoids. Right 1st MTPJ Arthrodesis: Utilizing hand instrumentation in the form of ronguer and curette, fibrotic tissue over the bone, spurring and nonviable distal metatarsal and proximal phalanx bone was resected. A reamer was used to resect cartilage. However bone was very soft and there was concerned that the reamer would fracture the metatarsal head. There were several large subchondral bone cyst and the bone at this level was very soft. A piece of the bone was sent for pathology although no obvious signs of osteomyelitis were noted. The cyst were curetted. Due to defects left from the cysts and the poor bone quality, decision made to use a saw to resect base of proximal phalanx and head of first metatarsal in its entirety to the level of good healthy bleeding bone. Wound was flushed with saline. Utilizing a 1.7mm drill, the bone was fenestrated to the level of healthy bleeding bone. This did leave the first ray short. Under intraoperative fluoroscopy the toe was held out to length and defect was measured to be 0.9 mm. A 10 mm wedge allograft was soaked in the patient's blood then was inserted at the prepped joint site between the metatarsal and proximal phalanx. The autograft obtained from the calcaneus was transected in half. Half was inserted between the allograft and the metatarsal, the remaining half was inserted between the proximal phalanx and the allograft. At this point, the joint was reduced and temporary fixation inserted. Position was checked under intra-op fluoroscopy. Due to the defect and need to span the graft, a long revisional plate was inserted in standard technique. Allograft putty was packed into the defects. Position checked under intraoperative fluoroscopy. 2.7 mm l ocking screws added distally. Manual compression applied with plate/screw insertion. However due to the allograft and autograft structural wedge between the metatarsal and proximal phalanx, complete bone on bone apposition and complete compression across the area was not expected. A bridge plate technique was utilized to stabilize the graft. Remaining screws were inserted in standard technique without complication. A 1.6 mm K wire was inserted from the tip of the toe through the distal and proximal phalanx through the graft and into the metatarsal. A second wire was inserted from distal medial to the graft to the proximal lateral metatarsal. The wires served to stabilize the graft from shifting medial/laterally or dorsally displacing. Final x-rays utilizing AP/MO and lateral views checked on intraoperative fluoroscopy and position of the reduction, fusion site, hardware was all deemed to be appropriate and stable. Any remaining allograft/autograft packed into the nonunion site. 3 cc of patient's blood was added directly over fusion site. Vicryl was used to close deep and subcutaneous tissue in a running fashion. Due to the poor skin quality, diabetes, RA healing risk potential, history of wound and prior surgery the skin is high risk for infection/wound dehiscence. Decision made to apply amniotic graft prior to skin closure over the fusion and tight distal incision site. Nylon was used to skin in an interrupted simple fashion. There was some tightness to the distal skin closure. Mastisol and a Curtis guard was applied over the area to try to prevent wound dehiscence. Skin cleansed. The tourniquet was deflated after 120 mins and immediate hyperemic response was noted to the digits. The wounds were cleansed. Xeroform, betadine soaked gauze, dry sterile dressing was then applied. The patient was awoken from anesthesia and transferred to recovery with vital signs stable and neurovascular status intact. Patient tolerated procedure and anesthesia well without complication. Materials: Vilex: right anatomic 1st MTPJ revision plate, 2.7mm locking screws x7, 1.6mm K wire x1, 1.2mm K wire x1, [id number] Shannon wedge, 5cc [place] DBM crunch, 4x6cm amniomaxx graft Discharge/Plan: D/C home today when ready and vital signs stable. Patient is to maintain dressing clean dry and intact. Ice top of right foot and elevate on two pillows. Polar pack behind knee. Incentive spirometer. NWB to the RLE with DME. Has RKS, walker. Rx for Doxy, Oxy, gabapentin, zofran given. Continue vitamin D supplement. 81mg aspirin daily. Obtain post op films, right foot, 3 views. Follow up with me in 1 week. Tourniquet time (min): 120 Condition: stable Disposition: same day Specimens:: Right 1st MTPJ bone Right sesamoids Complications:: None
[2024-05-24] MEDS: BUPIVACAINE 0.5% W/EPI 1:200,000 30ML VIAL 60 ML IJ (12:21)
--- NOTE | 2024-05-24 13:32 | SUR.OPER ---
updated family on pt at this time
--- NOTE | 2024-05-24 14:23 | SUR.OPER ---
updated family on pt at this time
--- NOTE | 2024-05-24 14:23 | XR_ITS ---
FINAL REPORT CLINICAL HISTORY: RIGHT MTP JOINT ARTHRODESIS > mgy 0.59 min 0:35 FINDINGS: FLUOROSCOPY LESS THAN 1 HOUR HISTORY: Fluoroscopy guidance. FINDINGS: Fluoroscopic guidance was provided for right MTP joint arthrodesis. Three spot films were obtained. A total of 0:35 minutes of fluoroscopy time were used. DAP: 0.59 mGy IMPRESSION: As above. Reviewed, Interpreted and Dictated by Twan Abdalla MD Transcribed by Aissatou Araujo Authenticated and [facility]
--- NOTE | 2024-05-24 14:45 | XR_ITS ---
FINAL REPORT CLINICAL HISTORY: s/p R 1st MTPJ fusion, calc bone harvest COMPARISON: 05/24/2024 FINDINGS: RIGHT FOOT 3 views of the right foot were obtained. There are sideplate and screws bridging the first MTP. 2 K wires are present. There are marked hypertrophic changes of the first MTP joint. There is no acute fracture or dislocation. Visualized joint spaces are normally aligned. Extensive soft tissue edema is noted. IMPRESSION: Postoperative changes without acute bony abnormality. Reviewed, Interpreted and Dictated by Twan Abdalla MD Transcribed by Celia Kimball Authenticated and [facility]
--- NOTE | 2024-05-24 14:49 | EXP.ANES.I ---
[facility] Anesthesia Record Part I Anesthesia Record I Intake, IV Amount: 700 Hydration: Adequate Estimated blood loss (mL): 25 Urine output (mL): 0 Blood Pressure: 126/75 SaO2: 95 Pulse Rate: 78 Airway Patency: Patent Respiratory Rate: 18 Temperature: 97.7 F Patient is:: Drowsy, Oral/Nasal airway (9.[address] upon arrival to PACU. Removed @ 14:51) and Stable Stable to PACU at:: 14:52
[2024-05-24 15:15] LABS: POC Glucose,Bedside 226 (70-110)
--- NOTE | 2024-05-25 11:38 | EXP.ANES.II ---
[facility] Anesthesia Record Part II Anesthesia Record Part II Discharge Time: 15:15 Destination: Surgical Day Care (OP Surgery) PACU nurse assessment reviewed?: Yes Patient Condition:: Good Anesthesia Complications:: None Swallowing reflex intact?: Yes Airway Patency: Patent Cyanosis?: No Blood Pressure: 120/86 SaO2: 99 Respiratory Rate: 16 Pulse Rate: 96 Temperature: 98 F Mental Status: Alert & Oriented Pain level:: 0 Nausea and/or vomitting:: None Intake, IV Amount: 700 Hydration: Adequate
[2024-05-25 11:40] VITALS: BP 120/86; PULSE 96; RESP 16; TEMP 36.6; O2SAT 99
== END 2024-05-24 15:47 | disposition home or self-care (01) ==
PROVIDERS: PCP Family Medicine; Visit Provider Podiatrist
PROC: (CPT 20900; principal; 2024-05-24 12:30)
DX: M79.671 Pain in right foot (principal); M19.071 Primary osteoarthritis, right ankle and foot; E11.621 Type 2 diabetes mellitus with foot ulcer; Z79.84 Long term (current) use of oral hypoglycemic drugs; Z79.899 Other long term (current) drug therapy; E11.40 Type 2 diabetes mellitus with diabetic neuropathy, unspecified
CPT/HCPCS: 20900; 28200; 28315; 28750; 73620; 73630; 82962; C1713; C1776; C9144; J1100; J1885; J2250; J2405; J3010; J3372; J7120

== ENCOUNTER 2024-06-15 08:02 | Outpatient (CLI) | payer BC, OTHER, SELFPAY ==
--- NOTE | 2024-06-15 08:05 | XR_ITS ---
FINAL REPORT CLINICAL HISTORY: Post operative RT FOOT COMPARISON: 05/24/2024 FINDINGS: RIGHT FOOT 3 views of the right foot were obtained. There is an orthopedic plate and screws bridging a fusion of the first MTP joint. 2 K wires are present in the right toe as well. There is calcific or ossific densities noted at the margins of the first MTP joint, that may represent callus formation and/or bone graft material. Soft tissue swelling is present in the foot, diffuse. No new bony abnormality is noted. There is no acute fracture or dislocation. IMPRESSION: Postoperative changes of fusion of the first MTP joint as described. Reviewed, Interpreted and Dictated by Twan Abdalla MD Transcribed by Vanessa Jung Authenticated and [facility]
== END 2024-06-15 23:59 | disposition home or self-care (01) ==
LOC: RAD 08:03
PROVIDERS: PCP Family Medicine; Visit Provider Podiatrist
DX: Z98.890 Other specified postprocedural states (principal)
CPT/HCPCS: 73630

== ENCOUNTER 2024-06-22 14:16 | Outpatient (CLI) | payer BC, OTHER, SELFPAY ==
[2024-06-22 19:56] LABS: Alanine Aminotransferase 34 U/L (12-78); Albumin Level 4.7 g/dl (3.5-5.0); Alkaline Phosphatase 80 U/L (38-126); Anion Gap 21.5 mEq/L (5-15); Aspartate Amino Transferase 32 U/L (14-36); Bilirubin,Total 0.4 mg/dl (0.2-1.3); Blood Urea Nitrogen 20 mg/dl (7-17); Calcium 9.9 mg/dl (8.4-10.2); Carbon Dioxide 19 mmol/L (22.0-30.0); Chloride 107 mmol/L (98-107); Chol/HDL Ratio 3.2 (1-3.5); Cholesterol 112 mg/dl (140-200); Estimated Glomerular Filt Rate 50 ml/min (>60); GFR (African American) 61 ML/MIN (>60); Globulin 2.3 g/dL (1.3-3.2); Glucose 126 mg/dl (74-100); HDL Cholesterol 35 mg/dl (40-60); Potassium 4.5 mmoL/L (3.5-5.1); Sodium 143 mmol/L (136-145); Triglycerides 229 mg/dl (30-150); VLDL Cholesterol 46 mg/dL (0-40)
[2024-06-22 20:08] LABS: Direct LDL Cholesterol 38.46 mg/dL (100-129)
[2024-06-22 20:14] LABS: Hemoglobin A1C 6.9 % (4.0-6.0)
== END 2024-06-22 23:59 | disposition home or self-care (01) ==
LOC: LAB.DROPOF 06-23 13:15
PROVIDERS: PCP Family Medicine; Visit Provider Family Medicine
DX: M1A.09X0 Idiopathic chronic gout, multiple sites, without tophus (tophi) (principal); E11.40 Type 2 diabetes mellitus with diabetic neuropathy, unspecified; E78.5 Hyperlipidemia, unspecified; M35.1 Other overlap syndromes; Z79.84 Long term (current) use of oral hypoglycemic drugs
CPT/HCPCS: 80053; 80061; 83036; 84550

== ENCOUNTER 2024-06-29 10:29 | Outpatient (CLI) | payer BC, OTHER, SELFPAY ==
--- NOTE | 2024-06-29 10:33 | XR_ITS ---
FINAL REPORT CLINICAL HISTORY: Post Operative May 24, fusion of great toe COMPARISON: 06/15/2024 FINDINGS: Three views show no evidence of acute displaced fracture or dislocation. There are postoperative changes from arthrodesis of the first metatarsophalangeal joint with associated osteotomy. Fixation plate and cortical pins are identified. There is extensive periostitis. The bones are osteopenic. IMPRESSION: Extensive postoperative changes. Reviewed, Interpreted and Dictated by Dilma Encarnacion MD Transcribed by Zelda Riggs Authenticated and [facility]
== END 2024-06-29 23:59 | disposition home or self-care (01) ==
LOC: RAD 10:29
PROVIDERS: PCP Family Medicine; Visit Provider Podiatrist
DX: Z98.890 Other specified postprocedural states (principal)
CPT/HCPCS: 73630

== ENCOUNTER 2024-07-06 13:45 | Outpatient (CLI) | payer BC, OTHER, SELFPAY | END 2024-07-06 23:59 | disposition home or self-care (01) | LOC: LAB.DROPOF 07-07 10:52 | PROVIDERS: PCP Podiatrist; Visit Provider Podiatrist | DX: Z98.890 Other specified postprocedural states (principal); E11.40 Type 2 diabetes mellitus with diabetic neuropathy, unspecified; Z79.84 Long term (current) use of oral hypoglycemic drugs | CPT/HCPCS: 87070; 87205 ==

== ENCOUNTER 2024-07-11 07:40 | Outpatient (RCR) | payer BC, OTHER, SELFPAY ==
--- NOTE | 2024-07-11 09:00 | HMH.PTOPEV ---
PT Outpatient Evaluation Rehab PT Outpatient Evaluation Start: 07/11/24 08:05 Freq: Status: Active Protocol: Document 07/11/24 08:05 SHOSHANA (Rec: 07/11/24 09:00 SHOSHANA [id number]) E-signed By Liv Friedman, PT Outpatient Therapy Subjective History Subjective History Pt is a 64 y/o female who reports to PT s/p R 1st MTPJ fusion surgery performed 05/24. Pt denies complications following surgery. Pt reports pain is well controlled but she does have intermittent lateral foot pain. Pt reports pain is aggravated by wear of the boot, prolonged standing and walking. Pt reports she is using a rollator walker for PPWB for household ambulation and using a RKS for community ambulation. Pt admits she doesn't wear the boot all the time at home but just puts pressure on her heel if she needs to take a couple steps without it on. Pt denies recent falls. Pt reports continued localized swelling of the dorsum of the foot that worsens throughout the day. Pt reports pain is more severe when the foot is more swollen . Pt denies paresthesia. Pt reports she returns to Dr. Ng on 07/20/24 for her next follow-up visit. 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 Chief Complaint Pain,Stiff,Swelling Symptom Type Ache,Throb,Dull Symptoms Relieved By Rest/Positioning,Ice,Brace/ Support,Elevation Symptoms Aggravated By Standing,Physical Activity, Walking Current Functional Limitations Housework,Driving,Standing, Walking,Stairs,Balance Symptom Description Intermittent Level of pain today (0-10) 0 Pain scale - at its best (0-10) 0 Pain scale - at its worst (0-10) 5 Ankle/Foot Eval Palpation Tenderness right Ankle/Foot Palpation Findings Tenderness Ankle/Foot Palpation Overall Comment lateral calcaneus, 1st & 5th MTP ROM Ankle/Foot Dorsiflexion w/Knee Extended 12 Active Range Motion (degrees) Ankle/Foot Plantar Flexion Active Range 40 of Motion (degrees) Ankle/Foot Eversion Active Range of 15 Motion (degrees) Ankle/Foot Inversion Active Range of 22 Motion (degrees) Great Toe Metatarsophalangeal Extension 0 Active Range Motion (degrees) Great Toe Metatarsophalangeal Flexion 2 Active Range of Motion (degrees) MMT Ankle Dorsiflexion Strength Grade 4- Good- Ankle Plantarflexion Strength Grade 4- Good- Foot Eversion Strength Grade 4- Good- Foot Inversion Strength Grade 4- Good- Lower Extremity Functional Index Activities Today, do you or would you have any difficulty at all with: a.Any of your usual work, housework or Quite a bit of difficulty school activities b. Your usual hobbies, recreational or Quite a bit of difficulty sporting activities c. Getting into or out of the bath Moderate difficulty d. Walking between rooms Moderate difficulty e. Putting on your shoes or socks A little bit of difficulty f. Squatting Extreme difficulty or unable to perform activity g. Lifting an object, like a bag of A little bit of difficulty groceries from the floor h. Performing light activities around Moderate difficulty your home i. Performing heavy activities around Extreme difficulty or unable your home to perform activity j. Getting into or out of a car Quite a bit of difficulty k. Walking 2 blocks Extreme difficulty or unable to perform activity l. Walking a mile Extreme difficulty or unable to perform activity m. Going up or down 10 stairs (about 1 Extreme difficulty or unable flight of stairs) to perform activity n. Standing for 1 hour Extreme difficulty or unable to perform activity o. Sitting for 1 hour Moderate difficulty p. Running on even ground Extreme difficulty or unable to perform activity q. Running on uneven ground Extreme difficulty or unable to perform activity r. Making sharp turns while running fast Extreme difficulty or unable to perform activity s. Hopping Extreme difficulty or unable to perform activity t. Rolling over in bed A little bit of difficulty LEFI Score Lower Extremity Functional Index Score 20 Outpatient Therapy Assessment Impairments Problems/Impairmments Palpation Tenderness,Impaired Range of Motion,Impaired Strength,Impaired Gait Pattern ,Impaired Walking,Impaired Standing,Impaired Household Care,Impaired Stair Climbing, Impaired Incline Stepping, Impaired Stepping on Uneven Surface,Impaired Balance, Increased Edema,Lymphedema Present,Wound Care Needs, Subjective C/O Pain,Impaired Self Care/Self Management Prognosis Rehab Potential Good Clinical Impression Consistent with Diagnosis Yes Short Term Goals Number of Weeks 3 Improve Gait Pattern without Assistive Yes: demonstrate proper Device mechanics FWB in fx boot with pain <5/10 Improve LEFI Score Yes: Improve score to at least 30/80 to improve overall QOL Improve Self Care/Self Management Yes Patient to be Ind w/ HEP Yes Long-Term Goals Number of Weeks 6 Increase Range of Motion Yes: Improve R ankle AROM to WNL Increase Strength Yes: Improev R ankle MMT to 4+ -5/5 grossly to assist with function Improve Gait Pattern without Assistive Yes: FWB in supportive tennis Device shoe Improve Ability to Climb Stairs Yes: 1 flight with HR to assist with community navigation Improve Tolerance to Work Activities Yes: report ability to work a full shift with pain 2-3/10 or less Improve LEFI Score Yes: Improve score to at least 40-50/80 to improve overall QOL Decrease Edema Yes Decrease Subjective C/O Pain Yes: Improve pain at worst to 2-3/10 to improve overall QOL Outpatient Therapy Plan of Care Treatment Plan May Include Therapeutic Exercise Including Home Yes Exercise Program Manual Therapy Techniques Yes Neuromuscular Re-education Yes Therapeutic Activities to Return to Yes Previous Functional/Work Level Gait Training Yes ADL/Self Care Education Yes Dry Needling Yes Thermal Modalities Yes Electrical Stimulation Yes Ultrasound/Phonophoresis Yes Iontophoresis Yes Orthotics/Bracing/Splinting Yes Vasopneumatic Compression Pump Yes Massage Yes Manual Lymphatic Drainage Yes Wound Care Yes Eval/Re-Eval Yes Frequency Times per week 2 Duration Number of Weeks 4-6 Addendums This patient is a candidate for social No or vocational rehab? Patient/Guardian verbally acknowledges Yes understanding of treatment program and consents to further treatment? Patient/Guardian verbally acknowledges Yes understanding of diagnosis, prognosis and goals for treatment? Eval Complexity PT Charges 65503 - Moderate Complexity Shoulder/Elbow Eval Shoulder Objective Measurements Elbow Objective Measurements PHYSICIAN CERTIFICATION: I certify the specified therapy services for Nilesh Rojas are required, authorized, and reviewed every 30 days.
== END 2024-07-11 23:59 | disposition home or self-care (01) ==
LOC: PT 07:40
PROVIDERS: Visit Provider Podiatrist
DX: Z98.890 Other specified postprocedural states (principal); M25.374 Other instability, right foot
CPT/HCPCS: 97163

== ENCOUNTER 2024-07-20 07:12 | Outpatient (CLI) | payer BC, OTHER, SELFPAY ==
--- NOTE | 2024-07-20 07:15 | XR_ITS ---
FINAL REPORT CLINICAL HISTORY: Foot Pain COMPARISON: 06/29/2024 FINDINGS: Three views show surgical fusion of the 1st MTP joint. The hardware and bone graft are in place with callus formation. Bony fusion is incomplete. There has been interval removal of the 1st digit pin. Generalized osteopenia is noted. IMPRESSION: Postoperative changes from arthrodesis of the 1st MTP joint. Reviewed, Interpreted and Dictated by Dimla Encarnacion MD Transcribed by Aissatou Araujo Authenticated and [facility]
== END 2024-07-20 23:59 | disposition home or self-care (01) ==
LOC: RAD 07:13
PROVIDERS: PCP Family Medicine; Visit Provider Podiatrist
DX: M79.671 Pain in right foot (principal)
CPT/HCPCS: 73630

== ENCOUNTER 2024-07-24 16:42 | Outpatient (CLI) | payer BC, OTHER, SELFPAY ==
--- NOTE | 2024-07-24 16:43 | MM_ITS ---
PROCEDURE INFORMATION: Exam: MG Bilateral Screening 3D Mammography Exam date and time: 07/24/2024 4:48 PM Age: 64 years old Clinical indication: Screening examination TECHNIQUE: Imaging protocol: Bilateral Screening tomosynthesis and 2D mammography including computer-aided detection (CAD) when performed. COMPARISON: No relevant prior studies available. FINDINGS: MAMMOGRAPHY: Breast composition: There are scattered areas of fibroglandular density. Mass: None. Architectural distortion: None. Calcifications: No suspicious calcifications. Asymmetric density: None. Skin thickening: None. Axillary adenopathy: None. IMPRESSION: No mammographic evidence of malignancy. Annual screening is recommended unless otherwise clinically indicated. ASSESSMENT: BI-RADS Category 1: Negative.
== END 2024-07-24 23:59 | disposition home or self-care (01) ==
LOC: RAD 16:43
PROVIDERS: PCP Family Medicine; Visit Provider Family Medicine
DX: Z12.31 Encounter for screening mammogram for malignant neoplasm of breast (principal)
CPT/HCPCS: 77063; 77067

== ENCOUNTER 2024-08-03 10:05 | Outpatient (CLI) | payer BC, OTHER, SELFPAY ==
--- NOTE | 2024-08-03 10:45 | CA_ITS ---
FINAL REPORT TECHNIQUE: Compression pérez scale and Doppler evaluation CLINICAL HISTORY: PAIN RT CALF,S/P 2 FOOT SURGERIES WITHIN IN THE LAST FEW MONTHS FINDINGS: Femoral and popliteal veins show normal compressibility and flow. Visualized portion of the calf veins are patent by Doppler exam. IMPRESSION: No evidence of right lower extremity deep venous thrombosis Reviewed, Interpreted and Dictated by Dilma Encarnacion MD Transcribed by Zelda Riggs Authenticated and . [facility]
[2024-08-03 11:01] LABS: Basophils # 0.1 K/mm3 (0-0.2); Eosinophils # 0.3 K/mm3 (0.0-0.4); Eosinophils % 4.6 % (0.1-12.0); Hematocrit 35.6 % (37.0-47.0); Hemoglobin 11.6 g/dL (12.2-16.2); Lymphocytes # 2.5 K/mm3 (0.7-4.5); Lymphocytes % 39.3 % (10-50); Mean Corpuscular HGB Conc 32.6 g/dL (31.8-35.4); Mean Corpuscular Hemoglobin 29.5 pg (27.0-31.2); Mean Corpuscular Volume 90.6 fl (81-99); Mean Platelet Volume 9.5 fl (7.4-10.4); Monocytes # 0.4 K/mm3 (0.1-1.0); Monocytes % 6.9 % (1.7-9.3); Neutrophils % 47.9 % (37.0-80.0); Platelet Count 333 K/mm3 (142-424); Red Blood Count 3.93 M/mm3 (4.20-5.40); White Blood Count 6.3 K/mm3 (4.8-10.8)
[2024-08-03 11:20] LABS: D-Dimer 0.54 ug/mL (0.0-0.5)
[2024-08-03 11:35] LABS: Alanine Aminotransferase 29 U/L (12-78); Albumin Level 4.7 g/dl (3.5-5.0); Albumin/Globulin Ratio 1.8 (1.1-1.8); Alkaline Phosphatase 94 U/L (38-126); Anion Gap 15.3 mEq/L (5-15); Aspartate Amino Transferase 26 U/L (14-36); Bilirubin,Total 0.8 mg/dl (0.2-1.3); Blood Urea Nitrogen 14 mg/dl (7-17); Calcium 9.5 mg/dl (8.4-10.2); Carbon Dioxide 25 mmol/L (22.0-30.0); Chloride 104 mmol/L (98-107); Estimated Glomerular Filt Rate 72 ml/min (>60); GFR (African American) 87 ML/MIN (>60); Globulin 2.6 g/dL (1.3-3.2); Glucose 212 mg/dl (74-100); Potassium 4.3 mmoL/L (3.5-5.1); Sodium 140 mmol/L (136-145); Total Protein,Serum 7.3 g/dl (6.3-8.2); Uric Acid 3.3 mg/dl (2.5-6.2)
[2024-08-03 11:40] LABS: C-Reactive Protein 11.1 mg/L (0-4)
[2024-08-03 11:42] LABS: Erythrocyte Sedimentation Rate 50 mm/hr (0-30)
[2024-08-03 17:07] LABS: Hemoglobin A1C 7.3 % (4.0-6.0)
== END 2024-08-03 23:59 | disposition home or self-care (01) ==
LOC: RT 10:07
PROVIDERS: PCP Family Medicine; Visit Provider Podiatrist
DX: R60.9 Edema, unspecified (principal); M79.661 Pain in right lower leg; Z98.890 Other specified postprocedural states; T81.31XA Disruption of external operation (surgical) wound, not elsewhere classified, initial encounter
CPT/HCPCS: 36415; 80053; 83036; 84550; 85025; 85378; 85651; 86140; 93971

== ENCOUNTER 2024-08-11 14:54 | Outpatient (RCR) | payer BC, OTHER, SELFPAY ==
--- NOTE | 2024-08-11 16:08 | HMH.PTOPWND ---
Rehab Outpt Wound Evaluation Rehab OP Wound Evaluation Start: 08/11/24 15:55 Freq: Status: Active Protocol: Document 08/11/24 15:56 MARÍA (Rec: 08/11/24 16:08 PHOVIDAL [id number]) E-signed By Anil Pascual, PT Subjective/History History History This is the initial PT lymphedema eval for Nilesh Rojas, 64 yowf who presents with c/o B LE edema, R LE x ~ 3 mos post surgery and L LE x ~ 40 yrs. She reports she injured her L ankle many years ago and has suffered from chronic edema since that time. She also underwent 2 separate foot surgeries (05/09 and ) with increased edema now. She also reports intermittent sharp pain in the R foot with some intermittent numbness and tingling. She reports PMH of ADENIKE, CCY, DM, RA, Raynaud's, and auto-immune dysfunction. Subjective Subjective Current pain in the R foot is 2/10, at worst pain is 7/10. 1 + pitting edema to B lower legs with underlying MILD fibrotic from upper calf distally. No TTP noted at this time. R foot with Moderate erythema. Lymphedema Eval Classification of Lymphedema Secondary Lymphedema Yes Stemmer's sign Stemmer's Sign yes Stage of Lymphedema Lymphedema stages Stage II (Pitting edema, increased fibrosis w/ decreased pitting) Skin Changes Dry Skin Yes Taut, Shiny Skin Yes Skin Folds Yes Redness Yes Discoloration of Skin Yes Other Changes Yes Pain Scale Pain Scale (0-10) 7 Radiation Therapy Has received radiation therapy no Chemo Therapy Has received chemo therapy no Affected Extremities Areas Affected by Lymphedema/Edema Right Lower Extremity,Left Lower Extremity Lower Extremity Measurements Right MTP Measurement (cm) 24.3 Heel Measurement (cm) 39.3 10 cm Proximal to Lateral Malleoli 29.8 Measurement (cm) 20 cm Proximal to Lateral Malleoli 36.5 Measurement (cm) 30 cm Proximal to Lateral Malleoli 39.0 Measurement (cm) 40 cm Proximal to Lateral Malleoli 0 Measurement (cm) 50 cm Proximal to Lateral Malleoli 0 Measurement (cm) 60 cm Proximal to Lateral Malleoli 0 Measurement (cm) Lower Extremity Measurement Total (cm) 168.9 Left MTP Measurement (cm) 28.2 Heel Measurement (cm) 35.4 10 cm Proximal to Lateral Malleoli 28.0 Measurement (cm) 20 cm Proximal to Lateral Malleoli 36.6 Measurement (cm) 30 cm Proximal to Lateral Malleoli 37.9 Measurement (cm) 40 cm Proximal to Lateral Malleoli 0 Measurement (cm) 50 cm Proximal to Lateral Malleoli 0 Measurement (cm) 60 cm Proximal to Lateral Malleoli 0 Measurement (cm) Lower Extremity Measurement Total (cm) 166.1 Manual Lymphatic Drainage Treatment Area MLD Treatment Area Right Lower Extremity,Left Lower Extremity Wound Problems/Impairments Impairments Problems/Impairmments Impaired Range of Motion, Impaired Strength,Impaired Endurance,Impaired Transfers, Impaired Gait Pattern,Impaired Walking,Impaired Standing, Lymphedema Present,Impaired Self Care/Self Management Prognosis Rehab Potential Good Comment Skilled therapy services are indicated in order to reduce overall edema burden to B LE in order to aid pt return to PLOF. Clinical Impression Consistent with Diagnosis Yes Short Term Goals Number of Weeks 2 Decrease Edema Yes: No pitting edema B LE Decrease Subjective C/O Pain Yes: 5/10 at worst R LE Patient to Understand Lymphedema Yes Treatment and Exercises Decrease Girth Measurments by (cm) Yes: B LE total by 5 cm ea Fdc Goals Number of Weeks 4 Decrease Lymphedema Yes: No fibrotic edema B LE Decrease Subjective C/O Pain Yes: 3/10 at worst R LE Patient to be Ind w/ HEP Yes Patient to Adhere Lymphedema Precautions Yes Decrease Girth Measurments by (cm) Yes: B LE total by 10 cm ea Outpatient Therapy Plan of Care Treatment Plan May Include Therapeutic Exercise Including Home Yes Exercise Program Manual Therapy Techniques Yes Neuromuscular Re-education Yes Therapeutic Activities to Return to Yes Previous Functional/Work Level ADL/Self Care Education Yes Orthotics/Bracing/Splinting Yes Vasopneumatic Compression Pump Yes Manual Lymphatic Drainage Yes Eval/Re-Eval Yes Frequency Times per week 2 Duration Number of Weeks 4 Addendums This patient is a candidate for social No or vocational rehab? Patient/Guardian verbally acknowledges Yes understanding of treatment program and consents to further treatment? Patient/Guardian verbally acknowledges Yes understanding of diagnosis, prognosis and goals for treatment? Eval Complexity PT Charges 25493 - High Complexity PHYSICIAN CERTIFICATION: I certify the specified therapy services for Nilesh Rojas are required, authorized, and reviewed every 30 days.
== END 2024-08-11 23:59 | disposition home or self-care (01) ==
LOC: PT 14:54
PROVIDERS: PCP Family Medicine; Visit Provider Podiatrist
DX: I89.0 Lymphedema, not elsewhere classified (principal)
CPT/HCPCS: 97163

== ENCOUNTER 2024-08-11 16:00 | Outpatient (RCR) | payer BC, OTHER, SELFPAY ==
--- NOTE | 2024-08-08 10:53 | HMH.RHREAS ---
Rehab Reassessment Rehab OP Re-assessment Start: 07/18/24 08:03 Freq: Status: Active Protocol: Document 08/08/24 08:40 SHOSHANA (Rec: 08/08/24 10:53 SHOSHANA [id number]) E-signed By Liv Friedman PT Lower Extremity Functional Index Activities Today, do you or would you have any difficulty at all with: a.Any of your usual work, housework or Quite a bit of difficulty school activities b. Your usual hobbies, recreational or Quite a bit of difficulty sporting activities c. Getting into or out of the bath A little bit of difficulty d. Walking between rooms A little bit of difficulty e. Putting on your shoes or socks A little bit of difficulty f. Squatting Quite a bit of difficulty g. Lifting an object, like a bag of Moderate difficulty groceries from the floor h. Performing light activities around Moderate difficulty your home i. Performing heavy activities around Quite a bit of difficulty your home j. Getting into or out of a car Moderate difficulty k. Walking 2 blocks Quite a bit of difficulty l. Walking a mile Extreme difficulty or unable to perform activity m. Going up or down 10 stairs (about 1 Quite a bit of difficulty flight of stairs) n. Standing for 1 hour Extreme difficulty or unable to perform activity o. Sitting for 1 hour A little bit of difficulty p. Running on even ground Extreme difficulty or unable to perform activity q. Running on uneven ground Extreme difficulty or unable to perform activity r. Making sharp turns while running fast Extreme difficulty or unable to perform activity s. Hopping Extreme difficulty or unable to perform activity t. Rolling over in bed A little bit of difficulty LEFI Score Lower Extremity Functional Index Score 27 Rehab Re-assessment Subjective Subjective Pt reports she feels 50% improved since starting PT. Pt reports she is doing well ambulating in a post op shoe without an AD but does report increased edema of the L foot with this. Pt states she is unable to don a regular supportive tennis shoe due to swelling. Pt reports increased redness, swelling and pain of the L calf/hamstring region with onset last week. Pt states she had an appointment with Dr. Ng on 08/03/24 and had a doppler ultrasound without significant findings and was prescribed an antibiotic she has been taking since . Pt denies fevers, chills or malaise. Pt reports she returns to Dr. Ng on 08/17/24 for her next follow-up visit and she is scheduled to have radiographs prior to that visit. Pt also states she has a lymphedema evaluation this Wednesday. Pt reports lateral and dorsal foot pain rated 4/10 at worst on VAS. 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 Assessment Progress Assessment Slower Than Expected Assessment Notes Pt has attended 7 PT treatment sessions consisting of aerobic exercise, ankle/foot mobility, LE stretching/ strengthening, gait training, seated proprioception, edema management via MLD/compression , manual therapy and modalities with good tolerance . Pt demonstrated slight improvement in subjective report of pain, LEFS score and gait this date compared to the initial evaluation. Pt demonstrated increased edema of the L ankle/foot limiting ankle AROM and delaying progression to FWB in a supportive tennis shoe. Pt is scheduled to have a lymphedema evaluation on 08/11/24 to assist with this and she returns to her surgeon for follow-up imaging on 08/17/24. Overall, the pt would continue to benefit from skilled PT to further improve subjective report of pain, edema, ankle ROM/strength, gait, balance/ proprioception and functional/ occupational activity tolerance to improve overall QOL. Patient goals met ST/4 Goals Not Met LEFS score, LTG Revised Goals n/a Plan Plan Continue POC Frequency of Therapy 2x/week Duration of therapy 4 more weeks Time and Billing Re-Eval Time 12 Re-Eval Billing Units 0 Charge for PT reassessment? No Charge for OT reassessment? No PHYSICIAN CERTIFICATION: I certify the specified therapy services for Nilesh Rojas are required, authorized, and reviewed every 30 days.
--- NOTE | 2024-08-08 10:58 | HMH.RHREAS ---
Rehab Reassessment Rehab OP Re-assessment Start: 07/18/24 08:03 Freq: Status: Active Protocol: Document 08/08/24 08:40 SHOSHANA (Rec: 08/08/24 10:53 SHOSHANA [id number]) E-signed By Liv Friedman PT Lower Extremity Functional Index Activities Today, do you or would you have any difficulty at all with: a.Any of your usual work, housework or Quite a bit of difficulty school activities b. Your usual hobbies, recreational or Quite a bit of difficulty sporting activities c. Getting into or out of the bath A little bit of difficulty d. Walking between rooms A little bit of difficulty e. Putting on your shoes or socks A little bit of difficulty f. Squatting Quite a bit of difficulty g. Lifting an object, like a bag of Moderate difficulty groceries from the floor h. Performing light activities around Moderate difficulty your home i. Performing heavy activities around Quite a bit of difficulty your home j. Getting into or out of a car Moderate difficulty k. Walking 2 blocks Quite a bit of difficulty l. Walking a mile Extreme difficulty or unable to perform activity m. Going up or down 10 stairs (about 1 Quite a bit of difficulty flight of stairs) n. Standing for 1 hour Extreme difficulty or unable to perform activity o. Sitting for 1 hour A little bit of difficulty p. Running on even ground Extreme difficulty or unable to perform activity q. Running on uneven ground Extreme difficulty or unable to perform activity r. Making sharp turns while running fast Extreme difficulty or unable to perform activity s. Hopping Extreme difficulty or unable to perform activity t. Rolling over in bed A little bit of difficulty LEFI Score Lower Extremity Functional Index Score 27 Rehab Re-assessment Subjective Subjective Pt reports she feels 50% improved since starting PT. Pt reports she is doing well ambulating in a post op shoe without an AD but does report increased edema of the L foot with this. Pt states she is unable to don a regular supportive tennis shoe due to swelling. Pt reports increased redness, swelling and pain of the L calf/hamstring region with onset last week. Pt states she had an appointment with Dr. Ng on 08/03/24 and had a doppler ultrasound without significant findings and was prescribed an antibiotic she has been taking since . Pt denies fevers, chills or malaise. Pt reports she returns to Dr. Ng on 08/17/24 for her next follow-up visit and she is scheduled to have radiographs prior to that visit. Pt also states she has a lymphedema evaluation this Wednesday. Pt reports lateral and dorsal foot pain rated 4/10 at worst on VAS. 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 Objective Objective Notes Gait: FWB in post-op shoe without an AD R ankle edema: figure 8 65cm, MTP circumference 29cm R ankle AROM: DF 15, PF 35, Inv 20, Eversion 8 Great toe AROM: flex 10, ext 4 R ankle MMT: 4-/5 grossly Assessment Progress Assessment Slower Than Expected Assessment Notes Pt has attended 7 PT treatment sessions consisting of aerobic exercise, ankle/foot mobility, LE stretching/ strengthening, gait training, seated proprioception, edema management via MLD/compression , manual therapy and modalities with good tolerance . Pt demonstrated slight improvement in subjective report of pain, LEFS score and gait this date compared to the initial evaluation. Pt demonstrated increased edema of the L ankle/foot limiting ankle AROM and delaying progression to FWB in a supportive tennis shoe. Pt is scheduled to have a lymphedema evaluation on 08/11/24 to assist with this and she returns to her surgeon for follow-up imaging on 08/17/24. Overall, the pt would continue to benefit from skilled PT to further improve subjective report of pain, edema, ankle ROM/strength, gait, balance/ proprioception and functional/ occupational activity tolerance to improve overall QOL. Patient goals met ST/4 Goals Not Met LEFS score, LTG Revised Goals n/a Plan Plan Continue POC Frequency of Therapy 2x/week Duration of therapy 4 more weeks Time and Billing Re-Eval Time 12 Re-Eval Billing Units 0 Charge for PT reassessment? No Charge for OT reassessment? No PHYSICIAN CERTIFICATION: I certify the specified therapy services for Nilesh Rojas are required, authorized, and reviewed every 30 days.
== END 2024-08-11 23:59 | disposition home or self-care (01) ==
LOC: PT 16:00
PROVIDERS: Visit Provider Podiatrist
DX: Z98.890 Other specified postprocedural states (principal)
CPT/HCPCS: 97014; 97016; 97110; 97116; 97140; 97530; G0283

== ENCOUNTER 2024-08-15 14:56 | Outpatient (RCR) | payer BC, OTHER, SELFPAY | END 2024-08-15 23:59 | disposition home or self-care (01) | LOC: PT 14:56 | PROVIDERS: Visit Provider Podiatrist | DX: Z98.890 Other specified postprocedural states (principal); M25.374 Other instability, right foot; I89.0 Lymphedema, not elsewhere classified | CPT/HCPCS: 97016; 97110; 97530 ==

== ENCOUNTER 2024-08-17 07:35 | Outpatient (CLI) | payer BC, OTHER, SELFPAY ==
--- NOTE | 2024-08-17 07:38 | XR_ITS ---
FINAL REPORT CLINICAL HISTORY: Post-Op COMPARISON: 07/20/2024 FINDINGS: Three views of the right foot show postoperative changes from surgical fusion of the 1st MTP joint. There is incomplete bony fusion at this time. The hardware remains stable. No new bony abnormality identified. Joint spaces otherwise appear intact. IMPRESSION: Stable postoperative changes of fusion 1st MTP joint. Reviewed, Interpreted and Dictated by Dilma Encarnacion MD Transcribed by Aissatou Araujo Authenticated and [facility]
== END 2024-08-17 23:59 | disposition home or self-care (01) ==
LOC: RAD 07:36
PROVIDERS: PCP Family Medicine; Visit Provider Podiatrist
DX: Z98.890 Other specified postprocedural states (principal)
CPT/HCPCS: 73630

== ENCOUNTER 2024-08-21 09:33 | Outpatient (CLI) | payer BC, OTHER, SELFPAY ==
--- NOTE | 2024-08-21 10:00 | CT_ITS ---
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 This study was performed with techniques to keep radiation doses as low as reasonably achievable, (ALARA). Individualized dose reduction techniques using automated exposure control or adjustment of mA and/or kV according to the patient's size were employed. FINDINGS: Osteopenia is noted. There is a small plantar spur. There is a sideplate and screws securing the first metatarsophalangeal joint. There is interbody fusion graft in the joint space. The hardware appears intact. Moderate hypertrophic changes are seen at the joint margins. There is no definite bony erosion or periosteal reaction. There is mild fragmentation which is believed to be postoperative. Hammertoe deformities are seen at the 2nd through 5th digits. There is fragmentation of the cuneiform which is favored to be postoperative. There is no acute osseous abnormality. IMPRESSION: Fusion hardware securing the metatarsal to the first proximal phalanx with interbody fusion graft of the first MTP. No definite evidence of hardware failure or osteomyelitis. Reviewed, Interpreted and Dictated by Twan Abdalla MD Transcribed by Amaris Yañez Authenticated and . [facility]
[2024-08-21 10:24] LABS: Basophils # 0.1 K/mm3 (0-0.2); Basophils % 1.3 % (0.1-2.0); Eosinophils # 0.4 K/mm3 (0.0-0.4); Eosinophils % 6.8 % (0.1-12.0); Hematocrit 36.7 % (37.0-47.0); Hemoglobin 11.5 g/dL (12.2-16.2); Lymphocytes # 2.7 K/mm3 (0.7-4.5); Lymphocytes % 48.4 % (10-50); Mean Corpuscular HGB Conc 31.3 g/dL (31.8-35.4); Mean Corpuscular Hemoglobin 28.7 pg (27.0-31.2); Mean Corpuscular Volume 91.5 fl (81-99); Mean Platelet Volume 10.7 fl (7.4-10.4); Monocytes # 0.4 K/mm3 (0.1-1.0); Monocytes % 6.8 % (1.7-9.3); Neutrophils % 36.3 % (37.0-80.0); Platelet Count 275 K/mm3 (142-424); Red Blood Count 4.01 M/mm3 (4.20-5.40); Red Cell Distribution Width 12.2 % (11.5-17.5); White Blood Count 5.5 K/mm3 (4.8-10.8)
[2024-08-21 10:45] LABS: Albumin Level 3.9 g/dl (3.5-5.0); Chloride 104 mmol/L (98-107)
[2024-08-21 10:46] LABS: Potassium 5.7 mmoL/L (3.5-5.1); Sodium 139 mmol/L (136-145)
[2024-08-21 10:48] LABS: Blood Urea Nitrogen 13 mg/dl (7-17); Estimated Glomerular Filt Rate 72 ml/min (>60); GFR (African American) 87 ML/MIN (>60)
[2024-08-21 10:49] LABS: Alanine Aminotransferase 21 U/L (12-78); Albumin/Globulin Ratio 1.4 (1.1-1.8); Alkaline Phosphatase 128 U/L (38-126); Anion Gap 15.7 mEq/L (5-15); Aspartate Amino Transferase 29 U/L (14-36); Bilirubin,Total 0.5 mg/dl (0.2-1.3); Calcium 9.5 mg/dl (8.4-10.2); Carbon Dioxide 25 mmol/L (22.0-30.0); Globulin 2.8 g/dL (1.3-3.2); Glucose 263 mg/dl (74-100); Total Protein,Serum 6.7 g/dl (6.3-8.2)
[2024-08-21 10:54] LABS: C-Reactive Protein 2.6 mg/L (0-4)
[2024-08-21 10:55] LABS: D-Dimer 0.61 ug/mL (0.0-0.5); Erythrocyte Sedimentation Rate 17 mm/hr (0-30)
--- OUTSIDE RECORDS SUMMARY | 2024-08-24 20:15 | XMS_ITS | Data Portability ---
Author Organization IV[facility] & ISABEL Ford ADMIN Address [address] [place] [id number] Care Team Providers Care Staffing Coordinator Name Role Phone LAN EDMONDS Primary Care Provider Assessment No assessment recorded. Plan of Treatment Reminders Order Date Submit Date Provider Last Modified By Organization Details Last Modified Time Details Appointments None recorded. Lab CMP, serum or plasma 2023 024 ALANNA [facility], [address], [address], [place], [address], 4 03:36:59 lipid panel, serum 2023 024 ALANNA [facility], [address], [address], [place], [address], 4 03:37:00 CBC w/ auto diff 2023 024 ALANNA [facility], [address], [address], [place], [address], 4 03:36:58 thyroid panel, serum 2023 024 ALANNA [facility], [address], [address], [place], [address], 4 03:37:01 HbA1c (hemoglobin A1c), blood 2023 024 ALANNA [facility], [address], [address], [place], [address], 4 03:37:02 HbA1c (hemoglobin A1c), blood 2022 023 ALANNA [facility], [address], [address], [place], [address], 3 03:37:00 CMP, serum or plasma 2022 023 ALANNA [facility], [address], [address], [place], [address], 3 03:36:56 lipid panel, serum 2022 023 MANNING [facility], [address], [address], [place], [address], 3 03:36:58 HbA1c (hemoglobin A1c), blood 2022 023 [email or web address] 5 [facility], [address], [place], [address], 3 11:50:00 CBC w/ auto diff 2022 023 MANNING [facility], [address], [address], [place], [address], 3 12:36:28 ESR (erythrocyt e sedimentati on rate), blood 2022 023 MANNING [facility], [address], [address], [place], [address], 3 12:36:35 C reactive protein, QN, serum or plasma 2022 023 MANNING [facility], [address], [address], [place], [address], 3 12:36:37 CK (creatine kinase), total, serum 2022 023 [facility], [address], [address], [place], [address], 3 12:36:36 GISSELLE (antinuclea r antibodies) screen, serum 2022 023 MANNING [facility], [address], [address], [place], [address], 3 12:36:34 vitamin D, 25-hydroxy, total, serum 2022 023 MANNING [facility], [address], [address], [place], [address], 3 12:36:33 HbA1c (hemoglobin A1c), blood 2022 023 [facility], [address], [address], [place], [address], 3 12:36:32 CMP, serum or plasma 2022 023 [facility], [address], [address], [place], [address], 3 12:36:29 lipid panel, serum 2022 023 [facility], [address], [address], [place], [address], 3 12:36:31 Referral None recorded. Procedures None recorded. Surgeries None recorded. Imaging None recorded. Medication Orders Januvia 100 mg tablet 2023 024 [facility], [address], [address], 4 11:33:36 glimepiride 4 mg tablet 2022 023 [facility], [address], [address], 3 11:34:11 metformin 850 mg tablet 2022 023 ALANNA [facility], [address], [address], 3 11:34:12 Patient TargetsNo targets recorded. Patient InstructionsNo instructions recorded. Reason for Referral None Reported. Results Created Date Observation Date Name Description Value Unit Range Abnormal Flag Note LastModifiedBy Organization Detail LastModifiedTime 06/26/1906/27/2022 CBC WITH DIFFE RENTI AL/PL ATELE T WBC 5.6 x10e3 /uL 3.4-10 .8 Not Available [facility] ([facility]) [address] [facility], [place], [address], 06/29/2022 12:36:28 06/26/19 23 06/27/2022 CBC WITH DIFFE RENTI AL/PL ATELE T RBC 4.45 x10e6 /uL 3.77-5 .28 Not Available [facility] ([facility]) [address] [place], [address], 06/29/2022 12:36:28 06/26/19 23 06/27/2022 CBC WITH DIFFE RENTI AL/PL ATELE T hemoglobin 12.7 g/dL 11.1-1 5.9 Not Available [facility] ([facility]) [address] [facility], [place], [address], 06/29/2022 12:36:28 06/26/19 23 06/27/2022 CBC WITH DIFFE RENTI AL/PL ATELE T hematocrit 38.9 % 34.0-4 6.6 Not Available [facility] ([facility]) [address] [place], [address], 06/29/2022 12:36:28 06/26/19 23 06/27/2022 CBC WITH DIFFE RENTI AL/PL ATELE T MCV 87 fL 79-97 Not Available [facility] ([facility]) [address] [facility], [place], [address], 06/29/2022 12:36:28 06/26/19 23 06/27/2022 CBC WITH DIFFE RENTI AL/PL ATELE T MCH 28.5 pg 26.6-3 3.0 Not Available [facility] ([facility]) [address] [facility], [place], [address], 06/29/2022 12:36:28 06/26/19 23 06/27/2022 CBC WITH DIFFE RENTI AL/PL ATELE T MCHC 32.6 g/dL 31.5-3 5.7 Not Available [facility] ([facility]) [address] [facility], [place], [address], 06/29/2022 12:36:28 06/26/19 23 06/27/2022 CBC WITH DIFFE RENTI AL/PL ATELE T RDW 12.4 % 11.7-1 5.4 Not Available [facility] ([facility]) [address] [facility], [place], [address], 06/29/2022 12:36:28 06/26/19 23 06/27/2022 CBC WITH DIFFE RENTI AL/PL ATELE T platelets 291 x10e3 /uL 150-45 0 Not Available [facility] ([facility]) [address] [facility], [place], [address], 06/29/2022 12:36:28 06/26/19 23 06/27/2022 CBC WITH DIFFE RENTI AL/PL ATELE T neutrophils 40 % not estab. Not Available [facility] ([facility]) [address] [facility], [place], [address], 06/29/2022 12:36:28 06/26/19 23 06/27/2022 CBC WITH DIFFE RENTI AL/PL ATELE T lymphs 48 % not estab. Not Available [facility] ([facility]) [address] [facility], [place], [address], 06/29/2022 12:36:28 06/26/19 23 06/27/2022 CBC WITH DIFFE RENTI AL/PL ATELE T monocytes 7 % not estab. Not Available [facility] ([facility]) [address] [facility], [place], [address], 06/29/2022 12:36:28 06/26/19 23 06/27/2022 CBC WITH DIFFE RENTI AL/PL ATELE T eos 4 % not estab. Not Available [facility] ([facility]) [address] [facility], [place], [address], 06/29/2022 12:36:28 06/26/19 23 06/27/2022 CBC WITH DIFFE RENTI AL/PL ATELE T basos 1 % not estab. Not Available [facility] ([facility]) [address] [facility], [place], [address], 06/29/2022 12:36:28 06/26/19 23 06/27/2022 CBC WITH DIFFE RENTI AL/PL ATELE T immature cells WEAVER TIRE CORD Not Available [facility] ([facility]) [address] [place], [address], 06/29/2022 12:36:28 06/26/19 23 06/27/2022 CBC WITH DIFFE RENTI AL/PL ATELE T neutrophils (absolute) 2.2 x10e3 /uL 1.4-7. 0 Not Available [facility] ([facility]) [address] [place], [address], 06/29/2022 12:36:28 06/26/19 23 06/27/2022 CBC WITH DIFFE RENTI AL/PL ATELE T lymphs (absolute) 2.6 x10e3 /uL 0.7-3. 1 Not Available [facility] ([facility]) [address] [place], [address], 06/29/2022 12:36:28 06/26/19 23 06/27/2022 CBC WITH DIFFE RENTI AL/PL ATELE T monocytes(ab solute) 0.4 x10e3 /uL 0.1-0. 9 Not Available [facility] ([facility]) [address] [facility], [place], [address], 06/29/2022 12:36:28 06/26/19 23 06/27/2022 CBC WITH DIFFE RENTI AL/PL ATELE T eos (absolute) 0.2 x10e3 /uL 0.0-0. 4 Not Available [facility] ([facility]) [address] [place], [address], 06/29/2022 12:36:28 06/26/19 23 06/27/2022 CBC WITH DIFFE RENTI AL/PL ATELE T baso (absolute) 0.1 x10e3 /uL 0.0-0. 2 Not Available [facility] ([facility]) [address] [place], [address], 06/29/2022 12:36:28 06/26/19 23 06/27/2022 CBC WITH DIFFE RENTI AL/PL ATELE T immature granulocytes 0 % not estab. Not Available [facility] ([facility]) [address] [place], [address], 06/29/2022 12:36:28 06/26/19 23 06/27/2022 CBC WITH DIFFE RENTI AL/PL ATELE T immature grans (abs) 0.0 x10e3 /uL 0.0-0. 1 Not Available [facility] ([facility]) [address] [place], [address], 06/29/2022 12:36:28 06/26/19 23 06/27/2022 CBC WITH DIFFE RENTI AL/PL ATELE T NRBC WEAVER TIRE CORD Not Available [facility] ([facility]) [address] [place], [address], 06/29/2022 12:36:28 06/26/19 23 06/27/2022 CBC WITH DIFFE GENEVIEVE AL/MOSES Hedrick hematology comments: WEAVER TIRE CORD Not Available [facility] ([facility]) [address] [facility], [place], [address], 06/29/2022 12:36:28 06/26/19 23 06/27/2022 COMP. METAB OLIC PANEL (14) glucose 156 mg/dL 70-99 above high normal Not Available [facility] ([facility]) [address] [facility], [place], [address], 06/29/2022 12:36:29 06/26/19 23 06/27/2022 COMP. METAB OLIC PANEL (14) BUN 17 mg/dL 8-27 Not Available [facility] ([facility]) [address] [facility], [place], [address], 06/29/2022 12:36:29 06/26/19 23 06/27/2022 COMP. METAB OLIC PANEL (14) creatinine 0.83 mg/dL 0.57-1 .00 Not Available [facility] ([facility]) [address] [facility], [place], [address], 06/29/2022 12:36:29 06/26/19 23 06/27/2022 COMP. METAB OLIC PANEL (14) eGFR 80 mL/mi n/1.7 3 >59 Not Available [facility] ([facility]) [address] [facility], [place], [address], 06/29/2022 12:36:29 06/26/19 23 06/27/2022 COMP. METAB OLIC PANEL (14) BUN/creatini ne ratio 20 12-28 Not Available [facility] ([facility]) [address] [facility], [place], [address], 06/29/2022 12:36:29 06/26/19 23 06/27/2022 COMP. METAB OLIC PANEL (14) sodium 141 mmol/ L 134-14 4 Not Available [facility] ([facility]) [address] [facility] [place], [address], 06/29/2022 12:36:29 06/26/19 23 06/27/2022 COMP. METAB OLIC PANEL (14) potassium 4.1 mmol/ L 3.5-5. 2 Not Available [facility] ([facility]) [address] [facility] [place], [address], 06/29/2022 12:36:29 06/26/19 23 06/27/2022 COMP. METAB OLIC PANEL (14) chloride 102 mmol/ L 96-106 Not Available [facility] ([facility]) [address] [facility], [place], [address], 06/29/2022 12:36:29 06/26/19 23 06/27/2022 COMP. METAB OLIC PANEL (14) carbon dioxide, total 25 mmol/ L 20-29 Not Available [facility] ([facility]) [address] [facility] [place], [address], 06/29/2022 12:36:29 06/26/19 23 06/27/2022 COMP. METAB OLIC PANEL (14) calcium 9.7 mg/dL 8.7-10 .3 Not Available [facility] ([facility]) [address] [facility] [place], [address], 06/29/2022 12:36:29 06/26/19 23 06/27/2022 COMP. METAB OLIC PANEL (14) protein, total 7.3 g/dL 6.0-8. 5 Not Available [facility] ([facility]) [address] [place], [address], 06/29/2022 12:36:29 06/26/19 23 06/27/2022 COMP. METAB OLIC PANEL (14) albumin 4.7 g/dL 3.8-4. 8 Not Available [facility] ([facility]) [address] [facility] [place], [address], 06/29/2022 12:36:29 06/26/19 23 06/27/2022 COMP. METAB OLIC PANEL (14) globulin, total 2.6 g/dL 1.5-4. 5 Not Available [facility] ([facility]) [address] [facility] [place], [address], 06/29/2022 12:36:29 06/26/19 23 06/27/2022 COMP. METAB OLIC PANEL (14) A/G ratio 1.8 1.2-2. 2 Not Available [facility] ([facility]) [address] [facility], [place], [address], 06/29/2022 12:36:29 06/26/19 23 06/27/2022 COMP. METAB OLIC PANEL (14) bilirubin, total 0.4 mg/dL 0.0-1. 2 Not Available [facility] ([facility]) [address] [facility] [place], [address], 06/29/2022 12:36:29 06/26/19 23 06/27/2022 COMP. METAB OLIC PANEL (14) alkaline phosphatase 86 IU/L 44-121 Not Available [facility]) [address] [facility], [place], [address], 06/29/2022 12:36:29 06/26/19 23 06/27/2022 COMP. METAB OLIC PANEL (14) AST (SGOT) 18 IU/L 0-40 Not Available [facility] ([facility]) [address] [facility] [place], [address], 06/29/2022 12:36:29 06/26/19 23 06/27/2022 COMP. METAB OLIC PANEL (14) ALT (SGPT) 19 IU/L 0-32 Not Available [facility] ([facility]) [address] [place], [address], 06/29/2022 12:36:29 06/26/19 23 06/27/2022 LIPID PANEL cholesterol, total 179 mg/dL 100-19 9 Not Available [facility] ([facility]) [address] [place], [address], 06/29/2022 12:36:31 06/26/19 23 06/27/2022 LIPID PANEL triglyceride s 154 mg/dL 0-149 above high normal Not Available [facility] ([facility]) [address] [place], [address], 06/29/2022 12:36:31 06/26/19 23 06/27/2022 LIPID PANEL HDL cholesterol 42 mg/dL >39 Not Available [facility] ([facility]) [address] [place], [address], 06/29/2022 12:36:31 06/26/19 23 06/27/2022 LIPID PANEL VLDL cholesterol neal 27 mg/dL 5-40 Not Available [facility] ([facility]) [address] [place], [address], 06/29/2022 12:36:31 06/26/19 23 06/27/2022 LIPID PANEL LDL chol calc ([facility]) 110 mg/dL 0-99 above high normal Not Available [facility] ([facility]) [address] [facility] [place], [address], 06/29/2022 12:36:31 06/26/19 23 06/27/2022 LIPID PANEL comment: WEAVER TIRE CORD Not Available [facility] ([facility]) [address] [facility] [place], [address], 06/29/2022 12:36:31 06/26/19 23 06/27/2022 HEMOG LOBIN A1C hemoglobin A1C 6.8 % 4.8-5. 6 above high normal Predi abete s: 5.7 - 6.4 Diabe nuno: >6.4 Glyce glory contr ol for adult s with diabe nuno: <7.0 Not Available [facility] ([facility]) [address] [facility], [place], [address], 06/29/2022 12:36:32 06/26/19 23 06/27/2022 VITAM IN D, 25-HY DROXY vitamin D, 25-hydroxy 82.3 NG/mL 30.0-1 00.0 Vitam in D defic iency has been defin ed by the Insti tute of Medic ine and an Endoc rine Socie ty pract ice guide line as a level of serum 25-OH vitam in D less than 20 ng/mL (1,2) . The Endoc rine Socie ty [facility] defin e vitam in D insuf ficie ncy as a level betwe en 21 and 29 ng/mL (2). 1. IOM (Inst itute of Medic ine). 2009. Linda ry refer ence intak es for calci um and D. Giselle sow [place]: The [facility] [employer] Press . 2. Kasey swift MF, Jabari cueto [place], Piper off-F errar i GARNER, et al. Evalu ation , treat ment, and preve ntion of vitam in D defic iency : an Endoc rine Socie ty clini neal pract ice guide line. JCEM. 2010; 96(7) :1911 -30. Not Available [facility] ([facility]) [address] [facility], [place], [address], 06/29/2022 12:36:33 06/26/19 23 06/29/2022 ANTIN UCLEA R ANTIB ODIES DIREC T GISSELLE direct POSITI VE negati ve abnormal Not Available [facility] ([facility]) [address] [facility], [place], [address], 06/29/2022 12:36:34 06/26/19 23 06/27/2022 SEDIM ENTAT ION RATE- WESTE RGREN sedimentatio n rate-westerg donita 11 mm/HR 0-40 Not Available [facility] ([facility]) [address] [facility], [place], [address], 06/29/2022 12:36:35 06/26/19 23 06/27/2022 CREAT INE CHI E,TOT AL creatine kinase,total 51 U/L 32-182 Not Available [facility] ([facility]) [address] [facility], [place], [address], 06/29/2022 12:36:36 06/26/19 23 06/27/2022 C-NIKITA CTIVE PROTE IN, QUANT C-reactive protein, quant 1 mg/L 0-10 Not Available [facility] ([facility]) [address] [facility], [place], [address], 06/29/2022 12:36:37 09/12/19 23 09/11/2022 HbA1c (hemo globi n A1c), blood HbA1c 7.6 Not Available [facility] [address], [place], [address], 09/11/2022 11:05:41 12/19/19 23 12/19/2022 COMP. METAB OLIC PANEL (14) glucose 143 mg/dL 70-99 above high normal Not Available [facility] ([facility]) [address] [place], [address], 12/19/2022 03:36:56 12/19/19 23 12/19/2022 COMP. METAB OLIC PANEL (14) BUN 15 mg/dL 8-27 Not Available [facility] ([facility]) [address] [place], [address], 12/19/2022 03:36:56 12/19/19 23 12/19/2022 COMP. METAB OLIC PANEL (14) creatinine 0.88 mg/dL 0.57-1 .00 Not Available [facility] ([facility]) [address] [place], [address], 12/19/2022 03:36:56 12/19/19 23 12/19/2022 COMP. METAB OLIC PANEL (14) eGFR 74 mL/mi n/1.7 3 >59 Not Available [facility] ([facility]) [address] [facility], [place], [address], 12/19/2022 03:36:56 12/19/19 23 12/19/2022 COMP. METAB OLIC PANEL (14) BUN/creatini ne ratio 17 12-28 Not Available [facility] ([facility]) [address] [facility], [place], [address], 12/19/2022 03:36:56 12/19/19 23 12/19/2022 COMP. METAB OLIC PANEL (14) sodium 139 mmol/ L 134-14 4 Not Available [facility] ([facility]) [address] [facility], [place], [address], 12/19/2022 03:36:56 12/19/19 23 12/19/2022 COMP. METAB OLIC PANEL (14) potassium 4.1 mmol/ L 3.5-5. 2 Not Available [facility] ([facility]) [address] [facility], [place], [address], 12/19/2022 03:36:56 12/19/19 23 12/19/2022 COMP. METAB OLIC PANEL (14) chloride 99 mmol/ L 96-106 Not Available [facility] ([facility]) [address] [facility], [place], [address], 12/19/2022 03:36:56 12/19/19 23 12/19/2022 COMP. METAB OLIC PANEL (14) carbon dioxide, total 24 mmol/ L 20-29 Not Available [facility] ([facility]) [address] [facility], [place], [address], 12/19/2022 03:36:56 12/19/19 23 12/19/2022 COMP. METAB OLIC PANEL (14) calcium 9.8 mg/dL 8.7-10 .3 Not Available [facility] ([facility]) [address] [facility], [place], [address], 12/19/2022 03:36:56 12/19/19 23 12/19/2022 COMP. METAB OLIC PANEL (14) protein, total 7.2 g/dL 6.0-8. 5 Not Available [facility] ([facility]) [address] [facility], [place], [address], 12/19/2022 03:36:56 12/19/19 23 12/19/2022 COMP. METAB OLIC PANEL (14) albumin 4.5 g/dL 3.9-4. 9 Not Available [facility] ([facility]) [address] [facility], [place], [address], 12/19/2022 03:36:56 12/19/19 23 12/19/2022 COMP. METAB OLIC PANEL (14) globulin, total 2.7 g/dL 1.5-4. 5 Not Available [facility] ([facility]) [address] [place], [address], 12/19/2022 03:36:56 12/19/19 23 12/19/2022 COMP. METAB OLIC PANEL (14) A/G ratio 1.7 1.2-2. 2 Not Available [facility] ([facility]) [address] [place], [address], 12/19/2022 03:36:56 12/19/19 23 12/19/2022 COMP. METAB OLIC PANEL (14) bilirubin, total 0.5 mg/dL 0.0-1. 2 Not Available [facility] ([facility]) [address] [place], [address], 12/19/2022 03:36:56 12/19/19 23 12/19/2022 COMP. METAB OLIC PANEL (14) alkaline phosphatase 91 IU/L 44-121 Not Available [facility] ([facility]) [address] [place], [address], 12/19/2022 03:36:56 12/19/19 23 12/19/2022 COMP. METAB OLIC PANEL (14) AST (SGOT) 18 IU/L 0-40 Not Available [facility] ([facility]) [address] [place], [address], 12/19/2022 03:36:56 12/19/19 23 12/19/2022 COMP. METAB OLIC PANEL (14) ALT (SGPT) 16 IU/L 0-32 Not Available [facility] ([facility]) [address] [place], [address], 12/19/2022 03:36:56 12/19/19 23 12/19/2022 LIPID PANEL cholesterol, total 148 mg/dL 100-19 9 Not Available [facility] ([facility]) [address] [place], [address], 12/19/2022 03:36:58 12/19/19 23 12/19/2022 LIPID PANEL triglyceride s 176 mg/dL 0-149 above high normal Not Available [facility] ([facility]) [address] [place], [address], 12/19/2022 03:36:58 12/19/19 23 12/19/2022 LIPID PANEL HDL cholesterol 36 mg/dL >39 below low normal Not Available [facility] ([facility]) [address] [place], [address], 12/19/2022 03:36:58 12/19/19 23 12/19/2022 LIPID PANEL VLDL cholesterol neal 30 mg/dL 5-40 Not Available [facility] ([facility]) [address] [place], [address], 12/19/2022 03:36:58 12/19/19 23 12/19/2022 LIPID PANEL LDL chol calc ([facility]) 82 mg/dL 0-99 Not Available [facility] ([facility]) [address] [place], [address], 12/19/2022 03:36:58 12/19/19 23 12/19/2022 LIPID PANEL comment: WEAVER TIRE CORD Not Available [facility] ([facility]) [address] [facility], [place], [address], 12/19/2022 03:36:58 12/19/19 23 12/19/2022 HEMOG LOBIN A1C hemoglobin A1C 7.2 % 4.8-5. 6 above high normal Predi abete s: 5.7 - 6.4 Diabe nuno: >6.4 Glyce glory contr ol for adult s with diabe nuno: <7.0 Not Available [facility] ([facility]) [address] [facility], [place], [address], 12/19/2022 03:37:00 05/31/19 24 06/01/2023 CBC WITH DIFFE RENTI AL/PL ATELE T WBC 7.1 x10e3 /uL 3.4-10 .8 Not Available [facility] ([facility]) [address] [facility], [place], [address], 06/01/2023 03:36:58 05/31/19 24 06/01/2023 CBC WITH DIFFE RENTI AL/PL ATELE T RBC 4.78 x10e6 /uL 3.77-5 .28 Not Available [facility] ([facility]) [address] [facility], [place], [address], 06/01/2023 03:36:58 05/31/19 24 06/01/2023 CBC WITH DIFFE RENTI AL/PL ATELE T hemoglobin 13.9 g/dL 11.1-1 5.9 Not Available [facility] ([facility]) [address] [place], [address], 06/01/2023 03:36:58 05/31/19 24 06/01/2023 CBC WITH DIFFE RENTI AL/PL ATELE T hematocrit 41.6 % 34.0-4 6.6 Not Available [facility] ([facility]) [address] [facility], [place], [address], 06/01/2023 03:36:58 05/31/19 24 06/01/2023 CBC WITH DIFFE RENTI AL/PL ATELE T MCV 87 fL 79-97 Not Available [facility] ([facility]) [address] [facility], [place], [address], 06/01/2023 03:36:58 05/31/19 24 06/01/2023 CBC WITH DIFFE RENTI AL/PL ATELE T MCH 29.1 pg 26.6-3 3.0 Not Available [facility] ([facility]) [address] [facility], [place], [address], 06/01/2023 03:36:58 05/31/19 24 06/01/2023 CBC WITH DIFFE RENTI AL/PL ATELE T MCHC 33.4 g/dL 31.5-3 5.7 Not Available [facility] ([facility]) [address] [facility], [place], [address], 06/01/2023 03:36:58 05/31/19 24 06/01/2023 CBC WITH DIFFE RENTI AL/PL ATELE T RDW 11.9 % 11.7-1 5.4 Not Available [facility] ([facility]) [address] [place], [address], 06/01/2023 03:36:58 05/31/1906/01/2023 CBC WITH DIFFE RENTI AL/PL ATELE T platelets 342 x10e3 /uL 150-45 0 Not Available [facility] ([facility]) [address] [place], [address], 06/01/2023 03:36:58 05/31/19 24 06/01/2023 CBC WITH DIFFE RENTI AL/PL ATELE T neutrophils 48 % not estab. Not Available [facility] ([facility]) [address] [facility], [place], [address], 06/01/2023 03:36:58 05/31/19 24 06/01/2023 CBC WITH DIFFE RENTI AL/PL ATELE T lymphs 39 % not estab. Not Available [facility] ([facility]) [address] [facility] [place] [place], [address], 06/01/2023 03:36:58 05/31/19 24 06/01/2023 CBC WITH DIFFE RENTI AL/PL ATELE T monocytes 6 % not estab. Not Available [facility] ([facility]) [address] [facility], [place], [address], 06/01/2023 03:36:58 05/31/19 24 06/01/2023 CBC WITH DIFFE RENTI AL/PL ATELE T eos 6 % not estab. Not Available [facility] ([facility]) [address] [facility], [place], [address], 06/01/2023 03:36:58 05/31/19 24 06/01/2023 CBC WITH DIFFE RENTI AL/PL ATELE T basos 1 % not estab. Not Available [facility] ([facility]) [address] [facility], [place], [address], 06/01/2023 03:36:58 05/31/19 24 06/01/2023 CBC WITH DIFFE RENTI AL/PL ATELE T immature cells WEAVER TIRE CORD Not Available [facility] ([facility]) [address] [facility], [place], [address], 06/01/2023 03:36:58 05/31/19 24 06/01/2023 CBC WITH DIFFE RENTI AL/PL ATELE T neutrophils (absolute) 3.4 x10e3 /uL 1.4-7. 0 Not Available [facility] ([facility]) [address] [facility], [place], [address], 06/01/2023 03:36:58 05/31/19 24 06/01/2023 CBC WITH DIFFE RENTI AL/PL ATELE T lymphs (absolute) 2.8 x10e3 /uL 0.7-3. 1 Not Available [facility] ([facility]) [address] [facility], [place], [address], 06/01/2023 03:36:58 05/31/19 24 06/01/2023 CBC WITH DIFFE RENTI AL/PL ATELE T monocytes(ab solute) 0.5 x10e3 /uL 0.1-0. 9 Not Available [facility] ([facility]) [address] [facility], [place], [address], 06/01/2023 03:36:58 05/31/19 24 06/01/2023 CBC WITH DIFFE RENTI AL/PL ATELE T eos (absolute) 0.4 x10e3 /uL 0.0-0. 4 Not Available [facility] ([facility]) [address] [facility], [place], [address], 06/01/2023 03:36:58 05/31/19 24 06/01/2023 CBC WITH DIFFE RENTI AL/PL ATELE T baso (absolute) 0.1 x10e3 /uL 0.0-0. 2 Not Available [facility] ([facility]) [address] [facility], [place], [address], 06/01/2023 03:36:58 05/31/19 24 06/01/2023 CBC WITH DIFFE RENTI AL/PL ATELE T immature granulocytes 0 % not estab. Not Available [facility] ([facility]) [address] [facility], [place], [address], 06/01/2023 03:36:58 05/31/19 24 06/01/2023 CBC WITH DIFFE RENTI AL/PL ATELE T immature grans (abs) 0.0 x10e3 /uL 0.0-0. 1 Not Available [facility] ([facility]) [address] [facility], [place], [address], 06/01/2023 03:36:58 05/31/19 24 06/01/2023 CBC WITH DIFFE RENTI AL/PL ATELE T NRBC WEAVER TIRE CORD Not Available [facility] ([facility]) [address] [facility], [place], [address], 06/01/2023 03:36:58 05/31/19 24 06/01/2023 CBC WITH DIFFE RENTI AL/PL ATELE T hematology comments: WEAVER TIRE CORD Not Available [facility] ([facility]) [address] [facility], [place], [address], 06/01/2023 03:36:58 05/31/19 24 06/01/2023 COMP. METAB OLIC PANEL (14) glucose 159 mg/dL 70-99 above high normal Not Available [facility] ([facility]) [address] [facility], [place], [address], 06/01/2023 03:36:59 05/31/19 24 06/01/2023 COMP. METAB OLIC PANEL (14) BUN 15 mg/dL 8-27 Not Available [facility] ([facility]) [address] [facility], [place], [address], 06/01/2023 03:36:59 05/31/19 24 06/01/2023 COMP. METAB OLIC PANEL (14) creatinine 0.85 mg/dL 0.57-1 .00 Not Available [facility] ([facility]) [address] [place], [address], 06/01/2023 03:36:59 05/31/19 24 06/01/2023 COMP. METAB OLIC PANEL (14) eGFR 77 mL/mi n/1.7 3 >59 Not Available [facility] ([facility]) [address] [facility], [place], [address], 06/01/2023 03:36:59 05/31/19 24 06/01/2023 COMP. METAB OLIC PANEL (14) BUN/creatini ne ratio 18 12-28 Not Available [facility] ([facility]) [address] [facility], [place], [address], 06/01/2023 03:36:59 05/31/19 24 06/01/2023 COMP. METAB OLIC PANEL (14) sodium 139 mmol/ L 134-14 4 Not Available [facility] ([facility]) [address] [facility] [place], [address], 06/01/2023 03:36:59 05/31/19 24 06/01/2023 COMP. METAB OLIC PANEL (14) potassium 5.1 mmol/ L 3.5-5. 2 Not Available [facility] ([facility]) [address] [facility], [place], [address], 06/01/2023 03:36:59 05/31/19 24 06/01/2023 COMP. METAB OLIC PANEL (14) chloride 100 mmol/ L 96-106 Not Available [facility] ([facility]) [address] [facility], [place], [address], 06/01/2023 03:36:59 05/31/19 24 06/01/2023 COMP. METAB OLIC PANEL (14) carbon dioxide, total 24 mmol/ L 20-29 Not Available [facility] ([facility]) [address] [facility], [place], [address], 06/01/2023 03:36:59 05/31/19 24 06/01/2023 COMP. METAB OLIC PANEL (14) calcium 10.2 mg/dL 8.7-10 .3 Not Available [facility] ([facility]) [address] [facility], [place], [address], 06/01/2023 03:36:59 05/31/19 24 06/01/2023 COMP. METAB OLIC PANEL (14) protein, total 7.5 g/dL 6.0-8. 5 Not Available [facility] ([facility]) [address], [place], [address], 06/01/2023 03:36:59 05/31/19 24 06/01/2023 COMP. METAB OLIC PANEL (14) albumin 4.7 g/dL 3.9-4. 9 Not Available [facility] ([facility]) [address], [place], [address], 06/01/2023 03:36:59 05/31/19 24 06/01/2023 COMP. METAB OLIC PANEL (14) globulin, total 2.8 g/dL 1.5-4. 5 Not Available [facility] ([facility]) [address], [place], [address], 06/01/2023 03:36:59 05/31/19 24 06/01/2023 COMP. METAB OLIC PANEL (14) A/G ratio 1.7 1.2-2. 2 Not Available [facility] ([facility]) [address], [place], [address], 06/01/2023 03:36:59 05/31/19 24 06/01/2023 COMP. METAB OLIC PANEL (14) bilirubin, total 0.4 mg/dL 0.0-1. 2 Not Available [facility] ([facility]) [address], [place], [address], 06/01/2023 03:36:59 05/31/19 24 06/01/2023 COMP. METAB OLIC PANEL (14) alkaline phosphatase 103 IU/L 44-121 Not Available [facility] ([facility]) [address], [place], [address], 06/01/2023 03:36:59 05/31/19 24 06/01/2023 COMP. METAB OLIC PANEL (14) AST (SGOT) 19 IU/L 0-40 Not Available [facility] ([facility]) [address] [facility] [place], [address], 06/01/2023 03:36:59 05/31/19 24 06/01/2023 COMP. METAB OLIC PANEL (14) ALT (SGPT) 22 IU/L 0-32 Not Available [facility] ([facility]) [address] [facility] [place], [address], 06/01/2023 03:36:59 05/31/19 24 06/01/2023 LIPID PANEL cholesterol, total 215 mg/dL 100-19 9 above high normal Not Available [facility] ([facility]) [address] [facility] [place], [address], 06/01/2023 03:37:00 05/31/19 24 06/01/2023 LIPID PANEL triglyceride s 214 mg/dL 0-149 above high normal Not Available [facility] ([facility]) [address] [facility] [place], [address], 06/01/2023 03:37:00 05/31/19 24 06/01/2023 LIPID PANEL HDL cholesterol 42 mg/dL >39 Not Available [facility] ([facility]) [address] [facility] [place], [address], 06/01/2023 03:37:00 05/31/19 24 06/01/2023 LIPID PANEL VLDL cholesterol neal 38 mg/dL 5-40 Not Available [facility] ([facility]) [address] [facility] [place], [address], 06/01/2023 03:37:00 05/31/19 24 06/01/2023 LIPID PANEL LDL chol calc ([facility]) 135 mg/dL 0-99 above high normal Not Available [facility] ([facility]) [address] [place], [address], 06/01/2023 03:37:00 05/31/19 24 06/01/2023 LIPID PANEL comment: WEAVER TIRE CORD Not Available [facility] ([facility]) [address] [facility] [place], [address], 06/01/2023 03:37:00 05/31/19 24 06/01/2023 THYRO ID PANEL WITH TSH TSH 1.640 uIU/m L 0.450- 4.500 Not Available [facility] ([facility]) [address] [facility] [place], [address], 06/01/2023 03:37:01 05/31/1906/01/2023 THYRO ID PANEL WITH TSH thyroxine (T4) 8.5 ug/dL 4.5-12 .0 Not Available [facility] ([facility]) [address] [place], [address], 06/01/2023 03:37:01 05/31/19 24 06/01/2023 THYRO ID PANEL WITH TSH T3 uptake 32 % 24-39 Not Available [facility] ([facility]) [address] [place], [address], 06/01/2023 03:37:01 05/31/19 24 06/01/2023 THYRO ID PANEL WITH TSH free thyroxine index 2.7 1.2-4. 9 Not Available [facility] ([facility]) [address] [place], [address], 06/01/2023 03:37:01 05/31/19 24 06/01/2023 HEMOG LOBIN A1C hemoglobin A1C 8.0 % 4.8-5. 6 above high normal Predi abete s: 5.7 - 6.4 Diabe nuno: >6.4 Glyce glory contr ol for adult s with diabe nuno: <7.0 Not Available [facility] ([facility]) [address] [place], [address], 06/01/2023 03:37:02 06/10/19 23 06/08/2022 MAMMO , scree jose, bilat eral No observ ation record ed. [email or web address] [facility] [address], [place], [address], 06/11/2022 08:17:24 12/01/19 23 02/11/2012 colon oscop y proce dure (PROC ) No observ ation record ed. Not Available 18:27:19 Result Notes None recorded. Procedures Surgical History Date Name Laterality Status Provider Name and Address Organization Details Recorded Time Hysterectomy completed Rebecca LOVE - ISABEL [facility] [place] 08/17/2022 16:34:11 Gastric Bypass completed Rebecca HALL [facility] [place] 08/17/2022 16:32:48 Colonoscopy completed Rebecca LOVE ISABEL [facility] [place] 08/17/2022 16:34:24 Imaging Results Imaging Date Name Status LastModified by Organization Details LastModified Time 06/08/2022 MAMMO, screening, bilateral completed [facility] [address], [place], [address], 06/11/2022 08:17:24 02/11/2012 colonoscopy procedure (PROC) completed Information not available 11/30/2022 18:27:19 Procedure Notes None recorded. Medical Equipment None Reported. Allergies No known drug allergies Medications Name Sig Start Date Stop Date Status Note LastModified by Organization Details LastModified Time prednisone 10 mg tablet TAKE 1 TABLET BY MOUTH ONCE DAILY DIRECTED 03/12 completed Not Available Not Available Not Available doxycycline hyclate 100 mg capsule TAKE 1 CAPSULE BY MOUTH EVERY 12 HOURS FOR 14 DAYS 07/05 completed Not Available Not Available Not Available clindamycin HCl 300 mg capsule TAKE 1 CAPSULE BY MOUTH THREE TIMES DAILY UNTIL GONE 03/12 completed Not Available Not Available Not Available meloxicam 15 mg tablet TAKE 1 TABLET BY MOUTH ONCE DAILY NEEDED FOR PAIN active Not Available Not Available No t Available prednisone 20 mg tablet TAKE 3 TABLETS BY MOUTH ONCE DAILY FOR 3 DAYS THEN 2 TABLETS ONCE DAILY FOR 3 DAYS THEN 1 TABLET ONCE DAILY FOR 3 DAYS 03/12 completed Not Available Not Available Not Available prednisone 5 mg tablet TAKE 1 TABLET BY MOUTH ONCE DAILY NEEDED FOR MAJOR JOINT FLARES active Not Available Not Available No t Available metformin 850 mg tablet TAKE 1 TABLET BY MOUTH THREE TIMES DAILY WITH MEALS active Not Available Not Available No t Available leflunomide 10 mg tablet TAKE 1 TABLET BY MOUTH ONCE DAILY IN THE MORNING active Not Available Not Available No t Available estradiol 1 mg tablet TAKE 1 TABLET BY MOUTH ONCE DAILY 03/12 completed Not Available Not Available Not Available biotin 10,000 mcg capsule Take by oral route. active Not Available Not Available No t Available glimepiride 4 mg tablet TAKE 1 TABLET BY MOUTH ONCE DAILY WITH BREAKFAST OR MORNING MEAL active Not Available Not Available No t Available folic acid 1 mg tablet TAKE 2 TABLETS BY MOUTH ONCE DAILY active Not Available Not Available No t Available hydroxychlo roquine 200 mg tablet TAKE 1 TABLET BY MOUTH IN THE MORNING AND 1 BEFORE BEDTIME active Not Available Not Available No t Available diazepam 5 mg tablet TAKE 1 TABLET BY MOUTH NEEDED TWICE DAILY FOR 30 DAYS 03/12 completed Not Available Not Available Not Available Januvia 100 mg tablet Take 1 tablet every day by oral route. 2023 active Not Available Not Available Not Avai lable D3-2000 active Not Available Not Avail able Not Available Ozempic 0.25 mg or 0.5 mg (2 mg/3 mL) subcutaneou s pen injector Inject by subcutane ous route for 28 days. 2023 active Not Available Not Available Not Avai lable Vitals Date Recorded Body height Body mass index (BMI) Body weight Body temperature Oxygen saturation Oxygen saturation in Arterial blood by Pulse oximetry Heart rate Systolic blood pressure Diastolic blood pressure Provider Name and Address Organization Details Last Updated DateTime 3 177.8 cm 26.5 kg/m2 45538.5 9 g 97.3 [degF] 99 % 99 % 91 /min 136 mm[Hg] 70 mm[Hg] Cassidy Cassandra [place] [facility] [place] 3 10:35:55 Date Recorded Body height Body mass index (BMI) Body weight Body temperature Oxygen saturation Oxygen saturation in Arterial blood by Pulse oximetry Heart rate Systolic blood pressure Diastolic blood pressure Provider Name and Address Organization Details Last Updated DateTime 3 177.8 cm 26.8 kg/m2 25646.7 7 g 97.8 [degF] 98 % 98 % 87 /min 130 mm[Hg] 60 mm[Hg] Cassidy LOVE [facility] [place] 3 10:58:59 Date Recorded Body height Body mass index (BMI) Body weight Body temperature Oxygen saturation Oxygen saturation in Arterial blood by Pulse oximetry Heart rate Systolic blood pressure Diastolic blood pressure Provider Name and Address Organization Details Last Updated DateTime 3 177.8 cm 28 kg/m2 86914.5 1 g 97.5 [degF] 98 % 98 % 78 /min 120 mm[Hg] 80 mm[Hg] Cassidy LOVE [facility] [place] 3 11:20:25 Date Recorded Body height Body mass index (BMI) Body weight Body temperature Oxygen saturation Oxygen saturation in Arterial blood by Pulse oximetry Heart rate Systolic blood pressure Diastolic blood pressure Provider Name and Address Organization Details Last Updated DateTime 4 177.8 cm 26.8 kg/m2 62631.7 7 g 98.1 [degF] 99 % 99 % 60 /min 124 mm[Hg] 70 mm[Hg] Cassidy LOVE [facility] [place] 4 08:50:30 Social History Question Answer Notes LastModified by Organizat ion Details LastModified Time Tobacco Smoking Status Never Smoker Cassidy Trujillo [facility] & [place] 03/13/2022 10:50:07 Do You Have An Advance Directive? No [email or web address] Information not available 03/13/2022 What Is Your Level Of Alcohol Consumption? None [email or web address] Information not available 03/13/2022 Are You Blind Or Do You Have Difficulty Seeing? No [email or web address] Information not available 03/13/2022 What Was The Date Of Your Most Recent Tobacco Screening? 03/12/2022 Information not available 03/13/2022 Are You Passively Exposed To Smoke? No Information no t available 03/13/2022 Do You Use Any Illicit Or Recreational Drugs? No [email or web address] Information not available 03/13/2022 Has Tobacco Cessation Counseling Been Provided? Yes [email or web address] Information not available 07/05/2023 On What Date Was Tobacco Cessation Counseling Provided? 09/11/2022 [email or web address] Information not available 07/05/2023 Sex: Unknown Functional Status None recorded. Mental Status None recorded. Family History Relationship Description Onset Age of this Age Resolved Age Notes LastModified by Organization Details LastModified Time Father History of heart disorder Living [email or web address] [id number] Not available 07/2022 16:30:18 Father Diabetes mellitus [email or web address] [id number] Not available 07/2022 16:30:25 Notes:Mother: AW Medical History Condition Response Diabetes Y Autoimmune disease Y Other Y Arthritis Y Gynecological HistoryNo gynecological history recorded. Obstetrics History GPAL:G 0 P 0 0 0 0 Immunizations Vaccine Type Date Status Note Provider Nam e and Address Organization Details Recorded Time Influenza, split virus, trivalent, PF 03/06/2016 completed IVAN Navarro - [facility] 11/30/2022 18:11:19 Past Encounters Encounter ID Performer Location Encounter Start Date Encounter Closed Date Diagnosis/Indication Diagnosis SNOMED-CT Code Diagnosis ICD10 Code Diagnosis Note [id number] Lan Edmonds MD [address] [place] [address] 03/13/2022 10:43:31 03/13/2022 11:05:41 Type 2 diabetes mellitus without complication 491994639 E11.9 Hyperlipidemia 57872760 E78.5 [id number] Lan Edmonds MD [address] [place] [address] 06/12/2022 10:21:59 06/12/2022 11:13:49 Type 2 diabetes mellitus without complication 420282079 E11.9 Disorder o f connective tissue 951517461 L94.9 Vitamin D deficiency 347 [address]142 E55.9 [id number] Lan Edmonds MD [address] [place] [address] 09/11/2022 10:53:36 09/11/2022 11:20:49 Type 2 diabetes mellitus without complication 497307342 E11.9 I am going to make any changes in her medicine currently. She probably as a bump in her A1c because of her recent steroid usage. Continue current medication s and repeat A1c in 3 months. Make changes ifit is consistent ly elevated. [id number] Lan Edmonds MD [address] [place] [address] 12/11/2022 11:14:30 12/11/2022 11:35:31 Hyperlipidemia 78046628 E78.5 Type 2 juliana betes mellitus 85615605 E11.9 [id number] Lan Edmonds MD [address] [place] [address] 05/31/2023 09:56:48 05/31/2023 10:28:14 Fatigue 45897482 R53.83 [id number] Lan Edmonds MD [address] [place] [address] 07/05/2023 08:31:51 07/05/2023 09:09:41 Type 2 diabetes mellitus without complication 518178546 E11.9 Add Claire hopefully we can get her down below 7. She is a follow-up in August. At which time we will repeat Health Concerns Section Related Observation LastModified by Organization Detai ls LastModified Time None Recorded Concern Status LastModified by Organization Details LastModified Time None Recorded Advance Directives Directive N: Payers Encounter Date Sequence Insurance Name Policy Number Policy Walters Covered Member ID Walters Member ID Guarantor Name 06/12/2022 1 [employer] (PP[employer]) [id number] Nilesh Rojas [id number] Nilesh Rojas 09/11/2022 1 [employer]) [id number] Nilesh Rojas [id number] Nilesh Rojas 12/11/2022 1 [employer] (PP[employer]) [id number] Nilesh Rojas [id number] Nilesh Rojas 05/31/2023 1 [employer] (PP[employer]) [id number] Nilesh Rojas [id number] Nilesh Rojas 07/05/2023 1 [employer] (PP[employer]) [id number] Nilesh Rojas [id number] Nilesh Rojas Notes Date Note Type Note Provider Name and Address Organization Details Recorded Time 06/12/2022 text/html She is here for follow-up. She is history of diabetes, mixed connective tissue disorder, vitamin-D deficiency. In regards her diabetes she is continues do well. Her A1c was around 7 at last check. Continues to keep a reasonable diet and weight. Due for CMP lipids and A1c today. She continues see Rheumatology for her mixed connective tissue disorder. She continues do well with low-dose prednisone. She is due for some lab work today. History of vitamin-D deficiency for which she needs vitamin-D levels today. Lan Edmonds MD [address], [place], [address], [facility] & [place] 06/12/2022 11:30:31 09/11/2022 text/html She is here for follow-up. She is history of diabetes. She is also has history of rheumatoid arthritis. She is been on some steroids for flare of her RA about a month ago. Since that time she is had some trouble keeping her sugars down. She is using some short-acting insulin that times. Her A1c today is 7.6 which is a bit Lan Edmonds MD [address], [place], [address], [facility] & [place] 09/11/2022 11:32:50 12/11/2022 text/html she is here for follow-up. She is history of diabetes, mixed connective tissue disorder,She still notices some high readings in the morning. She reports readings in the low 200s in the morning which improved when she takes her medication. She is currently on glimepiride and metformin. She is due for an A1c today but she reports she is having difficulty getting blood drawn because of a Raynaud's attack. She saw a amusement or recreation card checker today and they were unsuccessful. 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 Currently not on medication for this. MD [address], [place], [address], [facility] & [place] 12/11/2022 11:57:41 07/05/2023 text/html She is here for follow-up. She is history diabetes and rheumatoid arthritis. She continues to have slightly elevated A1c levels today. Her last was 8.4. She continues take metformin and glimepiride. She also continues to use Humulin R which I gave her to control her glucose when she was on high dose steroids. She takes this intermittently. Lan Edmonds MD [address], [place], [address], [facility] [place] [facility] [place] & [place] 07/05/2023 11:33:45 OBGyn Episode No OBEpisode recorded.
== END 2024-08-21 23:59 | disposition home or self-care (01) ==
LOC: RAD 09:33
PROVIDERS: PCP Family Medicine; Visit Provider Podiatrist
DX: M96.0 Pseudarthrosis after fusion or arthrodesis (principal); Z98.890 Other specified postprocedural states; E11.621 Type 2 diabetes mellitus with foot ulcer; L97.412 Non-pressure chronic ulcer of right heel and midfoot with fat layer exposed; T81.31XA Disruption of external operation (surgical) wound, not elsewhere classified, initial encounter
CPT/HCPCS: 36415; 73700; 80053; 85025; 85378; 85651; 86140

== ENCOUNTER 2024-09-05 10:09 | Outpatient (CLI) | payer BC, OTHER, SELFPAY ==
[2024-09-05 21:17] LABS: Chloride 107 mmol/L (98-107); Sodium 141 mmol/L (136-145)
[2024-09-05 21:18] LABS: Potassium 4.6 mmoL/L (3.5-5.1)
[2024-09-05 21:20] LABS: Blood Urea Nitrogen 12 mg/dl (7-17); Estimated Glomerular Filt Rate 72 ml/min (>60); GFR (African American) 87 ML/MIN (>60)
[2024-09-05 21:21] LABS: Anion Gap 15.6 mEq/L (5-15); Calcium 9.4 mg/dl (8.4-10.2); Carbon Dioxide 23 mmol/L (22.0-30.0); Glucose 178 mg/dl (74-100)
== END 2024-09-05 23:59 | disposition home or self-care (01) ==
LOC: LAB.DROPOF 09-06 09:59
PROVIDERS: PCP Family Medicine; Visit Provider Family Medicine
DX: E87.5 Hyperkalemia (principal)
CPT/HCPCS: 80048

== ENCOUNTER 2024-09-12 15:30 | Outpatient (RCR) | payer BC, OTHER, SELFPAY ==
--- NOTE | 2024-09-12 17:22 | HMH.RHREAS ---
Rehab Reassessment Rehab OP Re-assessment Start: 08/22/24 16:52 Freq: Status: Active Protocol: Document 09/12/24 17:15 MICHAELMakennaSYDNIE (Rec: 09/12/24 17:22 PHORSYDNIE [id number]) E-signed By Anil Pascual, PT Rehab Re-assessment Subjective Subjective The worst pain I have is a 2- 3, sometimes at night if it swells. Objective Objective Notes Circumferential Measurements: L LE total is 149.4 cm which is -16.7 cm since IE Pain: 3/10 in L LE at worst. Edema: No pitting edema, but MILD fibrotic edema remains. Assessment Progress Assessment Progressing as Expected Assessment Notes Pt has shown significant overall improvement in edema in L LE based on circumferential measurements as noted. Skilled therapy does remain indicated to continue to reduce edema and pain in an effort to return pt to independence with all ADLs. Patient goals met ST/4 LT/5 Plan Plan Continue per initial POC. Frequency of Therapy 2 x/wk Duration of therapy 4 wks Time and Billing Re-Eval Time 12 Re-Eval Billing Units 1 Charge for PT reassessment? Yes PHYSICIAN CERTIFICATION: I certify the specified therapy services for Nilesh Rojas are required, authorized, and reviewed every 30 days.
== END 2024-09-12 23:59 | disposition home or self-care (01) ==
LOC: PT 15:30
PROVIDERS: Visit Provider Podiatrist
DX: I89.0 Lymphedema, not elsewhere classified (principal)
CPT/HCPCS: 97140; 97164

== ENCOUNTER 2024-09-21 07:21 | Outpatient (CLI) | payer BC, OTHER, SELFPAY ==
--- OUTSIDE RECORDS SUMMARY | 2024-09-21 07:24 | XMS_ITS | Data Portability ---
Author Organization IVAN [facility] & ISABEL Ford ADMIN Address [address] [place] [id number] Care Team Providers Care Recruitment Manager Name Role Phone LAN EDMONDS Primary Care Provider Assessment No assessment recorded. Plan of Treatment Reminders Order Date Submit Date Provider Last Modified By Organization Details Last Modified Time Details Appointments None recorded. Lab CMP, serum or plasma 2023 024 ALANNA [facility], [address], [address], [place], [address], 4 03:36:59 lipid panel, serum 2023 024 ALANNA [facility], [address], [address], [place], [address], 4 03:37:00 CBC w/ auto diff 2023 024 ALANNA [facility], [address], [address], [place], [address], 4 03:36:58 thyroid panel, serum 2023 024 ALANNA [facility], [address], [address], [place], [address], 4 03:37:01 HbA1c (hemoglobin A1c), blood 2023 024 ALANNA [facility], [address], [address], [place], [address], 4 03:37:02 HbA1c (hemoglobin A1c), blood 2022 023 ALANNA [facility], [address], [address], [place], [address], 3 03:37:00 CMP, serum or plasma 2022 023 ALANNA [facility], [address], [address], [place], [address], 3 03:36:56 lipid panel, serum 2022 023 BIG SUR [facility], [address], [address], [place], [address], 3 03:36:58 HbA1c (hemoglobin A1c), blood 2022 023 [email or web address] [facility], [address], [place], [address], 3 11:50:00 CBC w/ auto diff 2022 023 [facility] SUR [facility], [address], [address], [place], [address], 3 12:36:28 ESR (erythrocyt e sedimentati on rate), blood 2022 023 [facility] SUR [facility], [address], [address], [place], [address], 3 12:36:35 C reactive protein, QN, serum or plasma 2022 023 [facility], [address], [address], [place], [address], 3 12:36:37 CK (creatine kinase), total, serum 2022 023 [facility], [address], [address], [place], [address], 3 12:36:36 GISSELLE (antinuclea r antibodies) screen, serum 2022 023 [facility], [address], [address], [place], [address], 3 12:36:34 vitamin D, 25-hydroxy, total, serum 2022 023 [facility], [address], [address], [place], [address], 3 12:36:33 HbA1c (hemoglobin A1c), blood 2022 023 [facility], [address], [address], [place], [address], 3 12:36:32 CMP, serum or plasma 2022 023 [facility], [address], [address], [place], [address], 3 12:36:29 lipid panel, serum 2022 023 [facility], [address], [address], [place], [address], 3 12:36:31 Referral None recorded. Procedures None recorded. Surgeries None recorded. Imaging None recorded. Medication Orders Januvia 100 mg tablet 2023 024 [facility], [address], [address], 4 11:33:36 glimepiride 4 mg tablet 2022 023 [facility], [address], [address], 3 11:34:11 metformin 850 mg tablet 2022 023 ALANNA [facility], [address], [address], 3 11:34:12 Patient TargetsNo targets recorded. Patient InstructionsNo instructions recorded. Reason for Referral None Reported. Results Created Date Observation Date Name Description Value Unit Range Abnormal Flag Note LastModifiedBy Organization Detail LastModifiedTime 06/26/1906/27/2022 CBC WITH DIFFE RENTI AL/PL ATELE T WBC 5.6 x10e3 /uL 3.4-10 .8 Not Available [facility] ([facility]) [address] [facility], [place], [address], 06/29/2022 12:36:28 06/26/19 23 06/27/2022 CBC WITH DIFFE RENTI AL/PL ATELE T RBC 4.45 x10e6 /uL 3.77-5 .28 Not Available [facility] ([facility]) [address] [place], [address], 06/29/2022 12:36:28 06/26/19 23 06/27/2022 CBC WITH DIFFE RENTI AL/PL ATELE T hemoglobin 12.7 g/dL 11.1-1 5.9 Not Available [facility] ([facility]) [address] [facility], [place], [address], 06/29/2022 12:36:28 06/26/19 23 06/27/2022 CBC WITH DIFFE RENTI AL/PL ATELE T hematocrit 38.9 % 34.0-4 6.6 Not Available [facility] ([facility]) [address] [place], [address], 06/29/2022 12:36:28 06/26/19 23 06/27/2022 CBC WITH DIFFE RENTI AL/PL ATELE T MCV 87 fL 79-97 Not Available [facility] ([facility]) [address] [facility], [place], [address], 06/29/2022 12:36:28 06/26/19 23 06/27/2022 CBC WITH DIFFE RENTI AL/PL ATELE T MCH 28.5 pg 26.6-3 3.0 Not Available [facility] ([facility]) [address] [facility], [place], [address], 06/29/2022 12:36:28 06/26/19 23 06/27/2022 CBC WITH DIFFE RENTI AL/PL ATELE T MCHC 32.6 g/dL 31.5-3 5.7 Not Available [facility] ([facility]) [address] [facility], [place], [address], 06/29/2022 12:36:28 06/26/19 23 06/27/2022 CBC WITH DIFFE RENTI AL/PL ATELE T RDW 12.4 % 11.7-1 5.4 Not Available [facility] ([facility]) [address] [facility], [place], [address], 06/29/2022 12:36:28 06/26/19 23 06/27/2022 CBC WITH DIFFE RENTI AL/PL ATELE T platelets 291 x10e3 /uL 150-45 0 Not Available [facility] ([facility]) [address] [facility], [place], [address], 06/29/2022 12:36:28 06/26/19 23 06/27/2022 CBC WITH DIFFE RENTI AL/PL ATELE T neutrophils 40 % not estab. Not Available [facility] ([facility]) [address] [facility], [place], [address], 06/29/2022 12:36:28 06/26/19 23 06/27/2022 CBC WITH DIFFE RENTI AL/PL ATELE T lymphs 48 % not estab. Not Available [facility] ([facility]) [address] [facility], [place], [address], 06/29/2022 12:36:28 06/26/19 23 06/27/2022 CBC WITH DIFFE RENTI AL/PL ATELE T monocytes 7 % not estab. Not Available [facility] ([facility]) [address] [facility], [place], [address], 06/29/2022 12:36:28 06/26/19 23 06/27/2022 CBC WITH DIFFE RENTI AL/PL ATELE T eos 4 % not estab. Not Available [facility] ([facility]) [address] [facility], [place], [address], 06/29/2022 12:36:28 06/26/19 23 06/27/2022 CBC WITH DIFFE RENTI AL/PL ATELE T basos 1 % not estab. Not Available [facility] ([facility]) [address] [facility], [place], [address], 06/29/2022 12:36:28 06/26/19 23 06/27/2022 CBC WITH DIFFE RENTI AL/PL ATELE T immature cells RADIOISOTOPE TECHNOLOGIST Not Available [facility] ([facility]) [address] [place], [address], 06/29/2022 12:36:28 06/26/19 23 06/27/2022 CBC WITH DIFFE RENTI AL/PL ATELE T neutrophils (absolute) 2.2 x10e3 /uL 1.4-7. 0 Not Available [facility] ([facility]) [address] [place], [address], 06/29/2022 12:36:28 06/26/19 23 06/27/2022 CBC WITH DIFFE RENTI AL/PL ATELE T lymphs (absolute) 2.6 x10e3 /uL 0.7-3. 1 Not Available [facility] ([facility]) [address] [place], [address], 06/29/2022 12:36:28 06/26/19 23 06/27/2022 CBC WITH DIFFE RENTI AL/PL ATELE T monocytes(ab solute) 0.4 x10e3 /uL 0.1-0. 9 Not Available [facility] ([facility]) [address] [facility], [place], [address], 06/29/2022 12:36:28 06/26/19 23 06/27/2022 CBC WITH DIFFE RENTI AL/PL ATELE T eos (absolute) 0.2 x10e3 /uL 0.0-0. 4 Not Available [facility] ([facility]) [address] [place], [address], 06/29/2022 12:36:28 06/26/19 23 06/27/2022 CBC WITH DIFFE RENTI AL/PL ATELE T baso (absolute) 0.1 x10e3 /uL 0.0-0. 2 Not Available [facility] ([facility]) [address] [place], [address], 06/29/2022 12:36:28 06/26/19 23 06/27/2022 CBC WITH DIFFE RENTI AL/PL ATELE T immature granulocytes 0 % not estab. Not Available [facility] ([facility]) [address] [place], [address], 06/29/2022 12:36:28 06/26/19 23 06/27/2022 CBC WITH DIFFE RENTI AL/PL ATELE T immature grans (abs) 0.0 x10e3 /uL 0.0-0. 1 Not Available [facility] ([facility]) [address] [place], [address], 06/29/2022 12:36:28 06/26/19 23 06/27/2022 CBC WITH DIFFE RENTI AL/PL ATELE T NRBC RADIOISOTOPE TECHNOLOGIST Not Available [facility] ([facility]) [address] [place], [address], 06/29/2022 12:36:28 06/26/19 23 06/27/2022 CBC WITH DIFFE GENEVIEVE AL/MOSES Hedrick hematology comments: RADIOISOTOPE TECHNOLOGIST Not Available [facility] ([facility]) [address] [facility], [place], [address], 06/29/2022 12:36:28 06/26/19 23 06/27/2022 COMP. METAB OLIC PANEL (14) glucose 156 mg/dL 70-99 above high normal Not Available [facility] ([facility]) [address] [facility], [place], [address], 06/29/2022 12:36:29 06/26/19 23 06/27/2022 COMP. METAB OLIC PANEL (14) BUN 17 mg/dL 8-27 Not Available [facility] ([facility]) [address] [facility], [place], [address], 06/29/2022 12:36:29 06/26/19 23 06/27/2022 COMP. METAB OLIC PANEL (14) creatinine 0.83 mg/dL 0.57-1 .00 Not Available [facility] ([facility]) [address] [facility], [place], [address], 06/29/2022 12:36:29 06/26/19 23 06/27/2022 COMP. METAB OLIC PANEL (14) eGFR 80 mL/mi n/1.7 3 >59 Not Available [facility] ([facility]) [address] [facility], [place], [address], 06/29/2022 12:36:29 06/26/19 23 06/27/2022 COMP. METAB OLIC PANEL (14) BUN/creatini ne ratio 20 12-28 Not Available [facility] ([facility]) [address] [facility], [place], [address], 06/29/2022 12:36:29 06/26/19 23 06/27/2022 COMP. METAB OLIC PANEL (14) sodium 141 mmol/ L 134-14 4 Not Available [facility] ([facility]) [address] [place], [address], 06/29/2022 12:36:29 06/26/19 23 06/27/2022 COMP. METAB OLIC PANEL (14) potassium 4.1 mmol/ L 3.5-5. 2 Not Available [facility] ([facility]) [address] [place], [address], 06/29/2022 12:36:29 06/26/19 23 06/27/2022 COMP. METAB OLIC PANEL (14) chloride 102 mmol/ L 96-106 Not Available [facility] ([facility]) [address] [facility], [place], [address], 06/29/2022 12:36:29 06/26/19 23 06/27/2022 COMP. METAB OLIC PANEL (14) carbon dioxide, total 25 mmol/ L 20-29 Not Available [facility] ([facility]) [address] [place], [address], 06/29/2022 12:36:29 06/26/19 23 06/27/2022 COMP. METAB OLIC PANEL (14) calcium 9.7 mg/dL 8.7-10 .3 Not Available [facility] ([facility]) [address] [place], [address], 06/29/2022 12:36:29 06/26/19 23 06/27/2022 COMP. METAB OLIC PANEL (14) protein, total 7.3 g/dL 6.0-8. 5 Not Available [facility] ([facility]) [address] [place], [address], 06/29/2022 12:36:29 06/26/19 23 06/27/2022 COMP. METAB OLIC PANEL (14) albumin 4.7 g/dL 3.8-4. 8 Not Available [facility] ([facility]) [address] [place], [address], 06/29/2022 12:36:29 06/26/19 23 06/27/2022 COMP. METAB OLIC PANEL (14) globulin, total 2.6 g/dL 1.5-4. 5 Not Available [facility] ([facility]) [address] [place], [address], 06/29/2022 12:36:29 06/26/19 23 06/27/2022 COMP. METAB OLIC PANEL (14) A/G ratio 1.8 1.2-2. 2 Not Available [facility] ([facility]) [address] [facility], [place], [address], 06/29/2022 12:36:29 06/26/19 23 06/27/2022 COMP. METAB OLIC PANEL (14) bilirubin, total 0.4 mg/dL 0.0-1. 2 Not Available [facility] ([facility]) [address] [place], [address], 06/29/2022 12:36:29 06/26/19 23 06/27/2022 COMP. METAB OLIC PANEL (14) alkaline phosphatase 86 IU/L 44-121 Not Available [facility] ([facility]) [address] [facility], [place], [address], 06/29/2022 12:36:29 06/26/19 23 06/27/2022 COMP. METAB OLIC PANEL (14) AST (SGOT) 18 IU/L 0-40 Not Available [facility] ([facility]) [address] [place], [address], 06/29/2022 12:36:29 06/26/19 23 06/27/2022 COMP. METAB OLIC PANEL (14) ALT (SGPT) 19 IU/L 0-32 Not Available [facility] ([facility]) [address] [place], [address], 06/29/2022 12:36:29 06/26/19 23 06/27/2022 LIPID PANEL cholesterol, total 179 mg/dL 100-19 9 Not Available [facility] ([facility]) [address] [place], [address], 06/29/2022 12:36:31 06/26/19 23 06/27/2022 LIPID PANEL triglyceride s 154 mg/dL 0-149 above high normal Not Available [facility] ([facility]) [address] [place], [address], 06/29/2022 12:36:31 06/26/19 23 06/27/2022 LIPID PANEL HDL cholesterol 42 mg/dL >39 Not Available [facility] ([facility]) [address] [place], [address], 06/29/2022 12:36:31 06/26/19 23 06/27/2022 LIPID PANEL VLDL cholesterol neal 27 mg/dL 5-40 Not Available [facility] ([facility]) [address] [place], [address], 06/29/2022 12:36:31 06/26/19 23 06/27/2022 LIPID PANEL LDL chol calc ([facility]) 110 mg/dL 0-99 above high normal Not Available [facility] ([facility]) [address] [place], [address], 06/29/2022 12:36:31 06/26/19 23 06/27/2022 LIPID 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 Not Available [facility] ([facility]) [address] [place], [address], 06/29/2022 12:36:31 06/26/19 23 06/27/2022 HEMOG LOBIN A1C hemoglobin A1C 6.8 % 4.8-5. 6 above high normal Predi abete s: 5.7 - 6.4 Diabe nuno: >6.4 Glyce glory contr ol for adult s with diabe nuno: <7.0 Not Available [facility] ([facility]) [address] [facility], [place], [address], 06/29/2022 12:36:32 06/26/19 23 06/27/2022 VITAM IN [...] Endoc rine Socie ty went on to [facility] er defin e vitam in D insuf ficie ncy as a level betwe en 21 and 29 ng/mL (2). 1. IOM (Inst itute of Medic ine). 2009. Linda ry refer ence intak es for calci um and D. Giselle sow [place]: The Natio nal [facility] Press . 2. Kasey swift MF, Jabari cueto [place], Piper off-F errar i GARNER, et al. Evalu ation , treat ment, and preve ntion of vitam in D defic iency : an Endoc rine Socie ty clini neal pract ice guide line. JCEM. 2010; 96(7) :1911 -30. Not Available [facility] ([facility]) [address] [facility], [place], [address], 06/29/2022 12:36:33 06/26/19 23 06/29/2022 ANTIN UCLEA R ANTIB ODIES DIREC T GISSELLE direct POSITI VE negati ve abnormal Not Available [facility] ([facility]) [address] [facility], [place], [address], 06/29/2022 12:36:34 06/26/19 23 06/27/2022 SEDIM ENTAT ION RATE- WESTE RGREN sedimentatio n rate-westerg donita 11 mm/HR 0-40 Not Available [facility] ([facility]) [address] [facility], [place], [address], 06/29/2022 12:36:35 06/26/19 23 06/27/2022 CREAT INE CHI E,TOT AL creatine kinase,total 51 U/L 32-182 Not Available [facility] ([facility]) [address] [facility], [place], [address], 06/29/2022 12:36:36 06/26/19 23 06/27/2022 C-NIKITA CTIVE PROTE IN, QUANT C-reactive protein, quant 1 mg/L 0-10 Not Available [facility] ([facility]) [address] [facility], [place], [address], 06/29/2022 12:36:37 09/12/19 23 09/11/2022 HbA1c (hemo globi n A1c), blood HbA1c 7.6 Not Available [facility] [address], [place], [address], 09/11/2022 11:05:41 12/19/19 23 12/19/2022 COMP. METAB OLIC PANEL (14) glucose 143 mg/dL 70-99 above high normal Not Available [facility] ([facility]) [address] [place], [address], 12/19/2022 03:36:56 12/19/19 23 12/19/2022 COMP. METAB OLIC PANEL (14) BUN 15 mg/dL 8-27 Not Available [facility] ([facility]) [address] [place], [address], 12/19/2022 03:36:56 12/19/19 23 12/19/2022 COMP. METAB OLIC PANEL (14) creatinine 0.88 mg/dL 0.57-1 .00 Not Available [facility] ([facility]) [address] [place], [address], 12/19/2022 03:36:56 12/19/19 23 12/19/2022 COMP. METAB OLIC PANEL (14) eGFR 74 mL/mi n/1.7 3 >59 Not Available [facility] ([facility]) [address] [facility], [place], [address], 12/19/2022 03:36:56 12/19/19 23 12/19/2022 COMP. METAB OLIC PANEL (14) BUN/creatini ne ratio 17 12-28 Not Available [facility] ([facility]) [address] [facility], [place], [address], 12/19/2022 03:36:56 12/19/19 23 12/19/2022 COMP. METAB OLIC PANEL (14) sodium 139 mmol/ L 134-14 4 Not Available [facility] ([facility]) [address] [facility], [place], [address], 12/19/2022 03:36:56 12/19/19 23 12/19/2022 COMP. METAB OLIC PANEL (14) potassium 4.1 mmol/ L 3.5-5. 2 Not Available [facility] ([facility]) [address] [facility], [place], [address], 12/19/2022 03:36:56 12/19/19 23 12/19/2022 COMP. METAB OLIC PANEL (14) chloride 99 mmol/ L 96-106 Not Available [facility] ([facility]) [address] [facility], [place], [address], 12/19/2022 03:36:56 12/19/19 23 12/19/2022 COMP. METAB OLIC PANEL (14) carbon dioxide, total 24 mmol/ L 20-29 Not Available [facility] ([facility]) [address] [facility], [place], [address], 12/19/2022 03:36:56 12/19/19 23 12/19/2022 COMP. METAB OLIC PANEL (14) calcium 9.8 mg/dL 8.7-10 .3 Not Available [facility] ([facility]) [address] [facility], [place], [address], 12/19/2022 03:36:56 12/19/19 23 12/19/2022 COMP. METAB OLIC PANEL (14) protein, total 7.2 g/dL 6.0-8. 5 Not Available [facility] ([facility]) [address] [facility], [place], [address], 12/19/2022 03:36:56 12/19/19 23 12/19/2022 COMP. METAB OLIC PANEL (14) albumin 4.5 g/dL 3.9-4. 9 Not Available [facility] ([facility]) [address] [facility], [place], [address], 12/19/2022 03:36:56 12/19/19 23 12/19/2022 COMP. METAB OLIC PANEL (14) globulin, total 2.7 g/dL 1.5-4. 5 Not Available [facility] ([facility]) [address] [place], [address], 12/19/2022 03:36:56 12/19/19 23 12/19/2022 COMP. METAB OLIC PANEL (14) A/G ratio 1.7 1.2-2. 2 Not Available [facility] ([facility]) [address] [place], [address], 12/19/2022 03:36:56 12/19/19 23 12/19/2022 COMP. METAB OLIC PANEL (14) bilirubin, total 0.5 mg/dL 0.0-1. 2 Not Available [facility] ([facility]) [address] [place], [address], 12/19/2022 03:36:56 12/19/19 23 12/19/2022 COMP. METAB OLIC PANEL (14) alkaline phosphatase 91 IU/L 44-121 Not Available [facility] ([facility]) [address] [place], [address], 12/19/2022 03:36:56 12/19/19 23 12/19/2022 COMP. METAB OLIC PANEL (14) AST (SGOT) 18 IU/L 0-40 Not Available [facility] ([facility]) [address] [place], [address], 12/19/2022 03:36:56 12/19/19 23 12/19/2022 COMP. METAB OLIC PANEL (14) ALT (SGPT) 16 IU/L 0-32 Not Available [facility] ([facility]) [address] [place], [address], 12/19/2022 03:36:56 12/19/19 23 12/19/2022 LIPID PANEL cholesterol, total 148 mg/dL 100-19 9 Not Available [facility] ([facility]) [address] [place], [address], 12/19/2022 03:36:58 12/19/19 23 12/19/2022 LIPID PANEL triglyceride s 176 mg/dL 0-149 above high normal Not Available [facility] ([facility]) [address] [place], [address], 12/19/2022 03:36:58 12/19/19 23 12/19/2022 LIPID PANEL HDL cholesterol 36 mg/dL >39 below low normal Not Available [facility] ([facility]) [address] [place], [address], 12/19/2022 03:36:58 12/19/19 23 12/19/2022 LIPID PANEL VLDL cholesterol neal 30 mg/dL 5-40 Not Available [facility] ([facility]) [address] [place], [address], 12/19/2022 03:36:58 12/19/19 23 12/19/2022 LIPID PANEL LDL chol calc ([facility]) 82 mg/dL 0-99 Not Available [facility] ([facility]) [address] [place], [address], 12/19/2022 03:36:58 12/19/19 23 12/19/2022 LIPID 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 Not Available [facility] ([facility]) [address] [facility], [place], [address], 12/19/2022 03:36:58 12/19/19 23 12/19/2022 HEMOG LOBIN A1C hemoglobin A1C 7.2 % 4.8-5. 6 above high normal Predi abete s: 5.7 - 6.4 Diabe nuno: >6.4 Glyce glory contr ol for adult s with diabe nuno: <7.0 Not Available [facility] ([facility]) [address] [facility], [place], [address], 12/19/2022 03:37:00 05/31/19 24 06/01/2023 CBC WITH DIFFE RENTI AL/PL ATELE T WBC 7.1 x10e3 /uL 3.4-10 .8 Not Available [facility] ([facility]) [address] [facility], [place], [address], 06/01/2023 03:36:58 05/31/19 24 06/01/2023 CBC WITH DIFFE RENTI AL/PL ATELE T RBC 4.78 x10e6 /uL 3.77-5 .28 Not Available [facility] ([facility]) [address] [facility], [place], [address], 06/01/2023 03:36:58 05/31/19 24 06/01/2023 CBC WITH DIFFE RENTI AL/PL ATELE T hemoglobin 13.9 g/dL 11.1-1 5.9 Not Available [facility] ([facility]) [address] [place], [address], 06/01/2023 03:36:58 05/31/19 24 06/01/2023 CBC WITH DIFFE RENTI AL/PL ATELE T hematocrit 41.6 % 34.0-4 6.6 Not Available [facility] ([facility]) [address] [facility], [place], [address], 06/01/2023 03:36:58 05/31/19 24 06/01/2023 CBC WITH DIFFE RENTI AL/PL ATELE T MCV 87 fL 79-97 Not Available [facility] ([facility]) [address] [facility], [place], [address], 06/01/2023 03:36:58 05/31/19 24 06/01/2023 CBC WITH DIFFE RENTI AL/PL ATELE T MCH 29.1 pg 26.6-3 3.0 Not Available [facility] ([facility]) [address] [facility], [place], [address], 06/01/2023 03:36:58 05/31/19 24 06/01/2023 CBC WITH DIFFE RENTI AL/PL ATELE T MCHC 33.4 g/dL 31.5-3 5.7 Not Available [facility] ([facility]) [address] [facility], [place], [address], 06/01/2023 03:36:58 05/31/19 24 06/01/2023 CBC WITH DIFFE RENTI AL/PL ATELE T RDW 11.9 % 11.7-1 5.4 Not Available [facility] ([facility]) [address] [place], [address], 06/01/2023 03:36:58 05/31/1906/01/2023 CBC WITH DIFFE RENTI AL/PL ATELE T platelets 342 x10e3 /uL 150-45 0 Not Available [facility] ([facility]) [address] [place], [address], 06/01/2023 03:36:58 05/31/19 24 06/01/2023 CBC WITH DIFFE RENTI AL/PL ATELE T neutrophils 48 % not estab. Not Available [facility] ([facility]) [address] [facility], [place], [address], 06/01/2023 03:36:58 05/31/19 24 06/01/2023 CBC WITH DIFFE RENTI AL/PL ATELE T lymphs 39 % not estab. Not Available [facility] ([facility]) [address] [facility], [place], [address], 06/01/2023 03:36:58 05/31/19 24 06/01/2023 CBC WITH DIFFE RENTI AL/PL ATELE T monocytes 6 % not estab. Not Available [facility] ([facility]) [address] [facility], [place], [address], 06/01/2023 03:36:58 05/31/19 24 06/01/2023 CBC WITH DIFFE RENTI AL/PL ATELE T eos 6 % not estab. Not Available [facility] ([facility]) [address] [facility], [place], [address], 06/01/2023 03:36:58 05/31/19 24 06/01/2023 CBC WITH DIFFE RENTI AL/PL ATELE T basos 1 % not estab. Not Available [facility] ([facility]) [address], [place], [address], 06/01/2023 03:36:58 05/31/19 24 06/01/2023 CBC WITH DIFFE RENTI AL/PL ATELE T immature cells RADIOISOTOPE TECHNOLOGIST Not Available [facility] ([facility]) [address], [place], [address], 06/01/2023 03:36:58 05/31/19 24 06/01/2023 CBC WITH DIFFE RENTI AL/PL ATELE T neutrophils (absolute) 3.4 x10e3 /uL 1.4-7. 0 Not Available [facility] ([facility]) [address], [place], [address], 06/01/2023 03:36:58 05/31/19 24 06/01/2023 CBC WITH DIFFE RENTI AL/PL ATELE T lymphs (absolute) 2.8 x10e3 /uL 0.7-3. 1 Not Available [facility] ([facility]) [address] [facility], [place], [address], 06/01/2023 03:36:58 05/31/19 24 06/01/2023 CBC WITH DIFFE RENTI AL/PL ATELE T monocytes(ab solute) 0.5 x10e3 /uL 0.1-0. 9 Not Available [facility] ([facility]) [address] [facility], [place], [address], 06/01/2023 03:36:58 05/31/19 24 06/01/2023 CBC WITH DIFFE RENTI AL/PL ATELE T eos (absolute) 0.4 x10e3 /uL 0.0-0. 4 Not Available [facility] ([facility]) [address] [facility], [place], [address], 06/01/2023 03:36:58 05/31/19 24 06/01/2023 CBC WITH DIFFE RENTI AL/PL ATELE T baso (absolute) 0.1 x10e3 /uL 0.0-0. 2 Not Available [facility] ([facility]) [address] [facility], [place], [address], 06/01/2023 03:36:58 05/31/19 24 06/01/2023 CBC WITH DIFFE RENTI AL/PL ATELE T immature granulocytes 0 % not estab. Not Available [facility] ([facility]) [address] [facility], [place], [address], 06/01/2023 03:36:58 05/31/19 24 06/01/2023 CBC WITH DIFFE RENTI AL/PL ATELE T immature grans (abs) 0.0 x10e3 /uL 0.0-0. 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 METAB OLIC PANEL (14) glucose 159 mg/dL 70-99 above high normal Not Available [facility] ([facility]) [address] [facility], [place], [address], 06/01/2023 03:36:59 05/31/19 24 06/01/2023 COMP. METAB OLIC PANEL (14) BUN 15 mg/dL 8-27 Not Available [facility] ([facility]) [address] [facility], [place], [address], 06/01/2023 03:36:59 05/31/19 24 06/01/2023 COMP. METAB OLIC PANEL (14) creatinine 0.85 mg/dL 0.57-1 .00 Not Available [facility] ([facility]) [address] [place], [address], 06/01/2023 03:36:59 05/31/19 24 06/01/2023 COMP. METAB OLIC PANEL (14) eGFR 77 mL/mi n/1.7 3 >59 Not Available [facility] ([facility]) [address] [facility], [place], [address], 06/01/2023 03:36:59 05/31/19 24 06/01/2023 COMP. METAB OLIC PANEL (14) BUN/creatini ne ratio 18 12-28 Not Available [facility] ([facility]) [address] [facility], [place], [address], 06/01/2023 03:36:59 05/31/19 24 06/01/2023 COMP. METAB OLIC PANEL (14) sodium 139 mmol/ L 134-14 4 Not Available [facility] ([facility]) [address] [place], [address], 06/01/2023 03:36:59 05/31/19 24 06/01/2023 COMP. METAB OLIC PANEL (14) potassium 5.1 mmol/ L 3.5-5. 2 Not Available [facility] ([facility]) [address] [facility], [place], [address], 06/01/2023 03:36:59 05/31/19 24 06/01/2023 COMP. METAB OLIC PANEL (14) chloride 100 mmol/ L 96-106 Not Available [facility] ([facility]) [address] [facility], [place], [address], 06/01/2023 03:36:59 05/31/19 24 06/01/2023 COMP. METAB OLIC PANEL (14) carbon dioxide, total 24 mmol/ L 20-29 Not Available [facility] ([facility]) [address] [facility], [place], [address], 06/01/2023 03:36:59 05/31/19 24 06/01/2023 COMP. METAB OLIC PANEL (14) calcium 10.2 mg/dL 8.7-10 .3 Not Available [facility] ([facility]) [address] [facility], [place], [address], 06/01/2023 03:36:59 05/31/19 24 06/01/2023 COMP. METAB OLIC PANEL (14) protein, total 7.5 g/dL 6.0-8. 5 Not Available [facility] ([facility]) [address], [place], [address], 06/01/2023 03:36:59 05/31/19 24 06/01/2023 COMP. METAB OLIC PANEL (14) albumin 4.7 g/dL 3.9-4. 9 Not Available [facility] ([facility]) [address], [place], [address], 06/01/2023 03:36:59 05/31/19 24 06/01/2023 COMP. METAB OLIC PANEL (14) globulin, total 2.8 g/dL 1.5-4. 5 Not Available [facility] ([facility]) [address], [place], [address], 06/01/2023 03:36:59 05/31/19 24 06/01/2023 COMP. METAB OLIC PANEL (14) A/G ratio 1.7 1.2-2. 2 Not Available [facility] ([facility]) [address], [place], [address], 06/01/2023 03:36:59 05/31/19 24 06/01/2023 COMP. METAB OLIC PANEL (14) bilirubin, total 0.4 mg/dL 0.0-1. 2 Not Available [facility] ([facility]) [address], [place], [address], 06/01/2023 03:36:59 05/31/19 24 06/01/2023 COMP. METAB OLIC PANEL (14) alkaline phosphatase 103 IU/L 44-121 Not Available [facility] ([facility]) [address], [place], [address], 06/01/2023 03:36:59 05/31/19 24 06/01/2023 COMP. METAB OLIC PANEL (14) AST (SGOT) 19 IU/L 0-40 Not Available [facility] ([facility]) [address] [place], [address], 06/01/2023 03:36:59 05/31/19 24 06/01/2023 COMP. METAB OLIC PANEL (14) ALT (SGPT) 22 IU/L 0-32 Not Available [facility] ([facility]) [address] [place], [address], 06/01/2023 03:36:59 05/31/19 24 06/01/2023 LIPID PANEL cholesterol, total 215 mg/dL 100-19 9 above high normal Not Available [facility] ([facility]) [address] [place], [address], 06/01/2023 03:37:00 05/31/19 24 06/01/2023 LIPID PANEL triglyceride s 214 mg/dL 0-149 above high normal Not Available [facility] ([facility]) [address] [place], [address], 06/01/2023 03:37:00 05/31/19 24 06/01/2023 LIPID PANEL HDL cholesterol 42 mg/dL >39 Not Available [facility] ([facility]) [address] [place], [address], 06/01/2023 03:37:00 05/31/19 24 06/01/2023 LIPID PANEL VLDL cholesterol neal 38 mg/dL 5-40 Not Available [facility] ([facility]) [address] [place], [address], 06/01/2023 03:37:00 05/31/19 24 06/01/2023 LIPID PANEL LDL chol calc ([facility]) 135 mg/dL 0-99 above high normal Not Available [facility] ([facility]) [address] [place], [address], 06/01/2023 03:37:00 05/31/19 24 06/01/2023 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 Not Available [facility] ([facility]) [address] [place], [address], 06/01/2023 03:37:00 05/31/19 24 06/01/2023 THYRO ID PANEL WITH TSH TSH 1.640 uIU/m L 0.450- 4.500 Not Available [facility] ([facility]) [address] [place], [address], 06/01/2023 03:37:01 05/31/1906/01/2023 THYRO ID PANEL WITH TSH thyroxine (T4) 8.5 ug/dL 4.5-12 .0 Not Available [facility] ([facility]) [address] [place], [address], 06/01/2023 03:37:01 05/31/19 24 06/01/2023 THYRO ID PANEL WITH TSH T3 uptake 32 % 24-39 Not Available [facility] ([facility]) [address] [place], [address], 06/01/2023 03:37:01 05/31/19 24 06/01/2023 THYRO ID PANEL WITH TSH free thyroxine index 2.7 1.2-4. 9 Not Available [facility] ([facility]) [address] [place], [address], 06/01/2023 03:37:01 05/31/19 24 06/01/2023 HEMOG LOBIN A1C hemoglobin A1C 8.0 % 4.8-5. 6 above high normal Predi abete s: 5.7 - 6.4 Diabe nuno: >6.4 Glyce glory contr ol for adult s with diabe nuno: <7.0 Not Available [facility] ([facility]) [address] [place], [address], 06/01/2023 03:37:02 06/10/19 23 06/08/2022 MAMMO , scree jose, bilat eral No observ ation record ed. [facility] [address], [place], [address], 06/11/2022 08:17:24 12/01/19 23 02/11/2012 colon oscop y proce dure (PROC ) No observ ation record ed. Not Available 18:27:19 Result Notes None recorded. Procedures Surgical History Date Name Laterality Status Provider Name and Address Organization Details Recorded Time 4 Hysterectomy completed Rebecca Isbell- DAVIDA LOEV - [facility] [place] 08/17/2022 16:34:11 Gastric Bypass completed Rebecca Isbell- DAVIDA LOVE - [facility]NT [facility] [place] 08/17/2022 16:32:48 Colonoscopy completed Rebecca Isbell DAVIDA LOVE - [facility]NT [facility] [place] 08/17/2022 16:34:24 Imaging Results Imaging Date Name Status LastModified by Organization Details LastModified Time 06/08/2022 MAMMO, screening, bilateral completed [email or web address] [facility] [address], [place], [address], 06/11/2022 08:17:24 02/11/2012 colonoscopy procedure (PROC) completed [email or web address] Information not available 11/30/2022 18:27:19 Procedure Notes [...] 2023 active Not Available Not Available Not Avvernell turnerle D3-2000 active Not Available Not Avail able [...] Updated DateTime 3 177.8 cm 26.5 kg/m2 18762.5 9 g 97.3 [degF] 99 % 99 % 91 /min 136 mm[Hg] 70 mm[Hg] Cassidy Trujillo [place] - [facility]NT [facility] [place] 3 10:35:55 Date Recorded Body height Body mass index (BMI) Body weight Body temperature Oxygen saturation Oxygen saturation in Arterial blood by Pulse oximetry Heart rate Systolic blood pressure Diastolic blood pressure Provider Name and Address Organization Details Last Updated DateTime 3 177.8 cm 26.8 kg/m2 57659.7 7 g 97.8 [degF] 98 % 98 % 87 /min 130 mm[Hg] 60 mm[Hg] Cassidy LOVE [facility] & [place] 3 10:58:59 Date Recorded Body height Body mass index (BMI) Body weight Body temperature Oxygen saturation Oxygen saturation in Arterial blood by Pulse oximetry Heart rate Systolic blood pressure Diastolic blood pressure Provider Name and Address Organization Details Last Updated DateTime 3 177.8 cm 28 kg/m2 82975.5 1 g 97.5 [degF] 98 % 98 % 78 /min 120 mm[Hg] 80 mm[Hg] Cassidy LOVE [facility] & [place] 3 11:20:25 Date Recorded Body height Body mass index (BMI) Body weight Body temperature Oxygen saturation Oxygen saturation in Arterial blood by Pulse oximetry Heart rate Systolic blood pressure Diastolic blood pressure Provider Name and Address Organization Details Last Updated DateTime 4 177.8 cm 26.8 kg/m2 82078.7 7 g 98.1 [degF] 99 % 99 % 60 /min 124 mm[Hg] 70 mm[Hg] Cassidy LOVE [facility] & [place] 4 08:50:30 Social History Question Answer Notes LastModified by Organizat ion Details LastModified Time Tobacco Smoking Status Never Smoker Cassidy Trujillo [facility] [place] 03/13/2022 10:50:07 Do You Have An Advance Directive? No [email or web address] Information not available 03/13/2022 What Is Your Level Of Alcohol Consumption? None [email or web address] Information not available 03/13/2022 Are You Blind Or Do You Have Difficulty Seeing? No [email or web address] Information not available 03/13/2022 What Was The Date Of Your Most Recent Tobacco Screening? 03/12/2022 [email or web address] Information not available 03/13/2022 Are You Passively Exposed To Smoke? No [email or web address] Information no t available 03/13/2022 Do You Use Any Illicit Or Recreational Drugs? No [email or web address] Information not available 03/13/2022 Has Tobacco Cessation Counseling Been Provided? Yes [email or web address] Information not available 07/05/2023 On What Date Was Tobacco Cessation Counseling Provided? 09/11/2022 [email or web address] Information not available 07/05/2023 Sex: Unknown Functional Status None recorded. Mental Status None recorded. Family History Relationship Description Onset Age of this Age Resolved Age Notes LastModified by Organization Details LastModified Time Father History of heart disorder Living [email or web address] Not available 07/2022 16:30:18 Father Diabetes mellitus [email or web address] Not available 07/2022 16:30:25 Notes:Mother: AW Medical History Condition Response Diabetes Y Autoimmune disease Y Other Y Arthritis Y Gynecological HistoryNo gynecological history recorded. Obstetrics History GPAL:G 0 P 0 0 0 0 Immunizations Vaccine Type Date Status Note Provider Nam e and Address Organization Details Recorded Time Influenza, split virus, trivalent, PF 03/06/2016 [facility]30[facility] 18:11:19 Past Encounters Encounter ID Performer Location Encounter Start Date Encounter Closed Date Diagnosis/Indication Diagnosis SNOMED-CT Code Diagnosis ICD10 Code Diagnosis Note [id number] Lan Edmonds MD [address] [place] [address] 03/13/2022 10:43:31 03/13/2022 11:05:41 Type 2 diabetes mellitus without complication 850376498 E11.9 Hyperlipidemia 98250839 E78.5 [id number] Lan Edmonds MD [address] [place] [address] 06/12/2022 10:21:59 06/12/2022 11:13:49 Type 2 diabetes mellitus without complication 344705563 E11.9 Disorder o f connective tissue 997071199 L94.9 Vitamin D deficiency 347 36420 E55.9 [id number] Lan Edmonds MD [address] [place] [address] 09/11/2022 10:53:36 09/11/2022 11:20:49 Type 2 diabetes mellitus without complication 636581168 E11.9 I am going to make any changes in her medicine currently. She probably as a bump in her A1c because of her recent steroid usage. Continue current medication s and repeat A1c in 3 months. Make changes ifit is consistent ly elevated. [id number] Lan Edmonds MD [address] [place] [address] 12/11/2022 11:14:30 12/11/2022 11:35:31 Hyperlipidemia 58158018 E78.5 Type 2 juliana betes mellitus 33673061 E11.9 [id number] Lan Edmonds MD [address] [place] [address] 05/31/2023 09:56:48 05/31/2023 10:28:14 Fatigue 77372005 R53.83 [id number] Lan Edmonds MD [address] [place] [address] 07/05/2023 08:31:51 07/05/2023 09:09:41 Type 2 diabetes mellitus without complication 551067172 E11.9 Add Claire hopefully we can get her down below 7. She is a follow-up in August. At which time we will repeat Health Concerns Section Related Observation LastModified by Organization Detai ls LastModified Time None Recorded Concern Status LastModified by Organization Details LastModified Time None Recorded Advance Directives Directive N: Payers Insurance Date Sequence Insurance Name Policy Number Policy Walters Covered Member ID Walters Member ID Guarantor Name 06/03/2020 1 [place] [id number] Eliezer Rojas [id number] Nilesh Rojas 07/05/2023 1 [employer] (PPO) [id number] Nilesh Rojas [id number] Nilesh Rojas 12/12/2021 1 [employer] - OPEN ACCESS - NATIONAL (POS) [id number] Nilesh Rojas [id number] Nilesh Rojas Notes Date Note Type Note [...] needs vitamin-D levels today. Lan Edmonds MD [address], [place], [address], [facility] [place] 06/12/2022 11:30:31 09/11/2022 text/html She is here [...] which is a bit Lan Edmonds MD [address], [place], [address], [facility] [place] 09/11/2022 11:32:50 12/11/2022 text/html she is here [...] of a Raynaud's attack. She saw a steeplechase jockey today and they were unsuccessful. 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 Currently not on medication for this. Lan Edmonds MD [address], [place], [address], [facility] [place] 12/11/2022 11:57:41 07/05/2023 text/html She is here [...] She takes this intermittently. Lan Edmonds MD [address], [place], [address], [facility] [place] [facility] [place] & [place] 07/05/2023 11:33:45 OBGyn Episode No OBEpisode recorded.
--- NOTE | 2024-09-21 07:27 | XR_ITS ---
FINAL REPORT CLINICAL HISTORY: Post Op F/U sx may 24 COMPARISON: 10/27/2023 FINDINGS: AP, oblique and lateral views of the right foot were obtained. In the interval since the prior exam of 10/27/2023, the patient has undergone interval fusion of the first MTP joint with an osteotomy. The hardware is intact. No acute osseous abnormality is noted. There is mild multijoint degenerative change present in the foot. No immediate post operative complications are identified. Soft tissues are unremarkable. IMPRESSION: Interval fusion of the first MTP joint with an osteotomy, hardware is intact. Reviewed, Interpreted and Dictated by Krissy John MD Transcribed by Vanessa Jung Authenticated and . [facility]
== END 2024-09-21 23:59 | disposition home or self-care (01) ==
LOC: RAD 07:22
PROVIDERS: PCP Family Medicine; Visit Provider Podiatrist
DX: Z98.890 Other specified postprocedural states (principal)
CPT/HCPCS: 73630

== ENCOUNTER 2024-10-11 10:00 | Outpatient (RCR) | payer BC, OTHER, SELFPAY ==
--- NOTE | 2024-09-14 15:08 | [facility].RHREAS ---
Rehab Reassessment Rehab OP Re-assessment Start: 09/14/24 11:01 Freq: Status: Active Protocol: Document 09/14/24 11:01 SHOSHANA (Rec: 09/14/24 15:08 SHOSHANA [id number]) E-signed By Liv Friedman PT Lower Extremity Functional Index Activities Today, do you or would you have any difficulty at all with: a.Any of your usual work, housework or Moderate difficulty school activities b. Your usual hobbies, recreational or Quite a bit of difficulty sporting activities c. Getting into or out of the bath A little bit of difficulty d. Walking between rooms Moderate difficulty e. Putting on your shoes or socks A little bit of difficulty f. Squatting Quite a bit of difficulty g. Lifting an object, like a bag of Moderate difficulty groceries from the floor h. Performing light activities around Moderate difficulty your home i. Performing heavy activities around Quite a bit of difficulty your home j. Getting into or out of a car A little bit of difficulty k. Walking 2 blocks Quite a bit of difficulty l. Walking a mile Extreme difficulty or unable to perform activity m. Going up or down 10 stairs (about 1 Extreme difficulty or unable flight of stairs) to perform activity n. Standing for 1 hour Extreme difficulty or unable to perform activity o. Sitting for 1 hour A little bit of difficulty p. Running on even ground Extreme difficulty or unable to perform activity q. Running on uneven ground Extreme difficulty or unable to perform activity r. Making sharp turns while running fast Extreme difficulty or unable to perform activity s. Hopping Extreme difficulty or unable to perform activity t. Rolling over in bed A little bit of difficulty LEFI Score Lower Extremity Functional Index Score 27 Rehab Re-assessment Subjective Subjective Pt reports she is now doing better overall with improved pain and swelling of the RLE. Pt states she had imaging of the R foot including a CT scan on 08/21 without significant findings or hardware issues. Pt reports she was told she may have had an infection in her lymphatic system causing increased swelling and pain, states she took prescribed medication for this with improvement. Pt reports only minimal R foot pain rated 3/10 at worst on VAS which occurs at night time. Pt reports she was told to gradually wean from the post-op shoe to a supportive tennis show. Pt states she has been wearing a tennis shoe a couple hours each day over the past two days with good tolerance. Pt states she feels like she limps and it feels awkward after being a boot for so long . Pt reports she returns to Dr. Ng on 09/21/24 and is supposed to have repeat xrays that day as well. Objective Objective Notes Gait: antalgic gait in post-op shoe this date R ankle edema: figure 8 65cm, MTP circumference 26cm R ankle AROM: DF 20, PF 40, Inv 25, Eversion 8 R ankle MMT: 08/19 grossly Assessment Assessment Notes PT treatment was placed on hold last month with inability to progress patient due to increased swelling and pain. Pt has been treated for lymphedema and possible infection with noted improvement in pain and swelling. Pt was recently instructed by MD to wean from post-op shoe to a regular tennis shoe with good tolerance. Pt continues to demonstrate altered gait mechanics and balance/ proprioception limiting function. Overall, the pt would benefit from resuming PT treatment to further improve subjective report of pain, ankle ROM/strength, gait, balance/proprioception and functional activity tolerance to improve overall QOL. Patient goals met ST/4 Goals Not Met LEFS, LTG Revised Goals n/a Plan Plan Continue POC Frequency of Therapy 2x/week Duration of therapy 4 more weeks Time and Billing Re-Eval Time 10 Re-Eval Billing Units 0 Charge for PT reassessment? No Charge for OT reassessment? No PHYSICIAN CERTIFICATION: I certify the specified therapy services for Nilesh Rojas are required, authorized, and reviewed every 30 days.
== END 2024-10-11 23:59 | disposition home or self-care (01) ==
LOC: PT 10:00
PROVIDERS: Visit Provider Podiatrist
DX: Z48.89 Encounter for other specified surgical aftercare (principal)
CPT/HCPCS: 97110; 97112; 97140; 97530

== ENCOUNTER 2024-11-06 10:11 | Outpatient (CLI) | payer OTHER, SELFPAY ==
--- OUTSIDE RECORDS SUMMARY | 2024-09-21 13:00 | XMS_ITS | Encounter Summary ---
Author Organization [facility] Address [address] [place] [address] Care Team Providers Care Patient Consumer Marketer Name Role Phone Sharon Mcguire MD Unavailable Reason for Visit * Reason Comments Rheumatoid Arthritis Encounter Details Date Type Department Care Team (Latest Contact Info) Description 09/21/2024 1:00 PM EDT Office Visit [facility] [address] [place] [address] Sharon Mcguire MD [address] [place] [address] Seronegative rheumatoid arthritis (HCC) (Primary Dx); Raynaud's disease without gangrene; Fibromyalgia; Other secondary osteoarthritis of first carpometacarpal joint of both hands; Other fatigue; Encounter for long-term (current) use of high-risk medication; 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, unspecified laterality Social History Tobacco Use Types Packs/Day Years Used Date Smoking Tobacco: Never Passive Smoke Exposure: Never Smokeless Tobacco: Never Alcohol Use Standard Drinks/Week Comments Never 0 (1 standard drink = 0.6 oz pur e alcohol) Sexually Active Control Partners Comments Yes Post-menopausal Male had hysterec josse at age 45 Comments No Sex and Gender Information Value Date Recorded Sex Assigned at Not on file Legal Sex Female 2:17 PM EDT Gender Identity Not on file Sexual Orientation Not on file 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 Not on file Not on file Not on file documented as of this encounter Last Filed Vital Signs Vital Sign Reading Time Taken Comments Blood Pressure 122/76 09/21/2024 1:03 PM EDT Pulse - - Temperature 36.5 C (97.7 F) 09/21/2024 1:03 PM EDT Respiratory Rate - - Oxygen Saturation - - Inhaled Oxygen Concentration - - Weight 83.5 kg (184 lb) 09/21/2024 1:03 PM EDT Height 177.8 cm (5' 10 ) 09/21/2024 1:03 PM EDT Body Mass Index 26.4 09/21/2024 1:03 PM EDT documented in this encounter Ordered Prescriptions Prescription Sig Dispense Quantity Refills Last Filled Start Date End Date allopurinoL (ZYLOPRIM) 100 mg Oral TabletIndications: Fibromyalgia,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 30 Tablet 2 09/21/2024 DULoxetine (CYMBALTA) 20 mg Oral Capsule, Delayed Release(E.C.) Take 1 Capsule by mouth daily. 30 Capsule 2 09/21/2024 documented in this encounter Progress Notes * Sharon Mcguire MD - 09/21/2024 1:00 PM EDT Images from the original note were not included. Subjective Subjective: Patient ID: Nilesh Rojas is a 64 y.o. female. Chief Complaint Patient presents with Rheumatoid Arthritis HPI: Nilesh Rojas is a 64 y.o.female who presents for follow up visit for seronegative RA: She was given diagnosis of MCTD in 04/2021 when she was initially diagnosed, there is no objective evidence to support a diagnosis of MCTD ( negative GISSELLE ) Current medications: - plaquenil 400 mg daily ( 04/2021- ) - arava 10 mg daily ( 2021- ) - allopurinol 100 mg daily (01/07- ) Events since last visit: - plaquenil 200 mg twice a day, arava 10 mg daily - allopurinol 100 mg daily - left thumb brace - she underwent 2 surgeries right foot, underwent fusion and grafting - she c/o pain bilateral hands, worse on right thumb - discussed about cymbalta 20 mg daily, would like to proceed - eye exam in 07/11- normal: Marco Patel Hamburg reviewed labs done on 08/21/24 at [facility] ( showed results on phone ) - normal CBC, creat, LFTs The pain / function / disease activity questionnaire was filled out by the patient and reviewed with me. Function on mHAQ = 4.6 Pain on 10-cm VAS = 5 PTGL= 5 Disease Activity on RAPID 3 = 4.8 REVIEW OF SYSTEMS See HPI for further details. Review of systems otherwise negative. Past Medical History: Diagnosis Date Arthritis Diabetes mellitus (HCC) Rash Social History Tobacco Use Smoking status: Never Passive exposure: Never Smokeless tobacco: Never Substance Use Topics Alcohol use: Never Family History Problem Relation Age of Onset Arthritis Mother Diabetes Mother Other (melanoma cancer) Father Diabetes Father Heart Abnormality Father Diabetes Sister Alzheimer's Disease Maternal Grandmother Emphysema Maternal Grandfather Stomach Cancer Paternal Grandmother Parkinson's Disease Paternal Grandfather Dementia Paternal Grandfather No Known Allergies Outpatient Medications Marked as Taking for the 09/21/24 encounter (Office Visit) with Sharon Mcguire MD Medication Sig Dispense Refill allopurinoL (ZYLOPRIM) 100 mg Oral Tablet Take 1 Tablet by mouth daily. 30 Tablet 2 amLODIPine-benazepril (LOTREL) 2.5-10 mg Oral Capsule Take 1 Capsule by mouth daily. atorvastatin (LIPITOR) 10 mg Oral Tablet Take 10 mg by mouth daily. glimepiride (AMARYL) 4 mg Oral Tablet Take 4 mg by mouth every morning (before breakfast). hydroxychloroquine (PLAQUENIL) 200 mg Oral Tablet Take 1 Tablet by mouth 2 times daily. 60 Tablet 0 leflunomide (ARAVA) 10 mg Oral Tablet Take 1 Tablet by mouth daily. 30 Tablet 2 metFORMIN (GLUCOPHAGE) 850 mg Oral Tablet Take 850 mg by mouth 3 times daily. omeprazole (PRILOSEC) 20 mg Oral Capsule, Delayed Release(E.C.) Take 20 mg by mouth daily. Objective: Vital Signs: BP 122/76 (BP Location: Left arm, Patient Position: Sitting) Temp 97.7 ??F (36.5 ??C) (Forehead) Ht 5' 10 (1.778 m) Wt 184 lb (83.5 kg) BMI 26.40 kg/m?? Body mass index is 26.4 kg/m??. Physical Exam CONST: well developed, well nourished, no apparent distress EYES: pupils equal/ round/ sclera white, conjunctiva pink and moist ENT: oropharynx clear without exudates, mucus membranes moist NECK: supple without lymphadenopathy, no thyromegaly, no masses RESP: clear to auscultation bilaterally without wheezes/rhonchi/rales CV: regular rate and rhythm without murmurs/rubs/gallops, no edema/cyanosis/clubbing SKIN: no rash, no indurations, nodules, or tightening. 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 Dispense: 30 Tablet; Refill: 2 - The diagnosis of fibromyalgia was discussed, emphasizing that although it has diagnostic criteria, it is also in part a diagnosis of exclusion, and that other diagnosis will still be considered in future visits. The treatment regimen was reviewed. The limited role of medications were discussed, emphasizing that they are not curative and rarely effective alone. The importance of physical conditio jose exercises was discussed, and in particular water conditioning or aerobic exercise was discussed as an effective and very important part of the treatment regimen. The possible association of depression, stress, and anxiety with Fibromyalgia was discussed, explaining that whether depression, stress, or anxiety is primary, or secondary to chronic pain, if present it needs to be treated. Also, the importance of sleep was discussed. The pertinent benefits and risks of the medication was discussed, and the patients was encouraged to review the information, discuss with a pharmacist, and call with questions. - Plan: recommend cymbalta 20 mg daily Other secondary osteoarthritis of first carpometacarpal joint of both hands - Plan: thumb brace, discussed about steroid injection 1 CMC, she would like to try cymbalta first Other fatigue Encounter for long-term (current) use of high-risk medication Overview: Medication safety questionnaire DVT:no PE: no [place]:no Heart failure: no Stroke: no Shingles:no diverticulitis: no IBD: no skin psoriasis: no depression: no post menopausal: hysterectomy with BSO in 2004 Cancer including skin cancer: no Multiple sclerosis: no, FH:no Age appropriate cancer screening: - colonoscopy- 1, normal - mammogram- annual, normal - pap smear- normal in the past, s/p hysterectomy Monitoring parameters: - TB quant negative- 09/09/23 - Hep A IgM, BsAg, core AB, C AB NR-09/09/23 - eye exam on plaquenil- 06/12/23, no s/o toxicity, RTC: 1 year, 05/2024 - MBS-09/21/23- suspect esophageal dysphagia - DEXA scan 09/25/22- normal BMD Discussed risks and benefits of Leflunomide (Arava, LEF). Risks including but not limited peripheral neuropathy, hepatoxicity, bone marrow suppression, anemia, infections (including respiratory tractinfections), GI side effects, rash, alopecia, and/or pulmonary side effects (ie, ILD) were discussed with the patient. - Patient understands that regular lab work is required while on this therapy. - Patient understands to avoid conception during treatment given potential for harm and should be avoided until thorough washout has been done with undetectable drug levels. - Patient instructed to read educational material concerning medication. Discussed risks and benefits of hydroxychloroquine (Plaquenil, PLQ). Risks including but not limited cardiovascular (prolonged QT, other arrhythmias, or (very rarely) cardiomyopathy), hyperpigmentation, rash (including severe reactions such as SJS), metabolic (hypoglycemia), hematologic (low blood c ounts), nausea, abdominal pain, and/or eye side effects (including retinal toxicity) were discussedwith the patient today. - Patient understands that annual eye exam is required in order to safely continue to prescribe this drug. - Patient understands to hold med if vision changes do occur and to immediately discuss with ophthalmology. 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 I did discuss modifiable risk factors, mainly food and weight. The association was discussed of gout and food containing high uric acid, particularlymeat, shellfish, and alcohol. The importance of dietary modification and weight reduction was discussed. - Plan: continue allopurinol 100 mg daily, will repeat uric acid level at next visit Orders: - allopurinoL (ZYLOPRIM) 100 mg Oral Tablet; Take 1 Tablet by mouth daily. Dispense: 30 Tablet; Refill: 2 Other orders - DULoxetine (CYMBALTA) 20 mg Oral Capsule, Delayed Release(E.C.); Take 1 Capsule by mouth daily. Dispense: 30 Capsule; Refill: 2 Instructions: - New medication cymbalta 20 mg daily - plaquenil 200 mg twice a day, arava 10 mg daily - repeat uric acid at next visit, will decide on dose of allopurinol - right thumb injection to be discussed at next visit - discuss with PCP to increase dose of amlodipine ( will help with raynauds ) - RTC in 4 weeks This is a moderate complexity [id number] visit based on reviewing outside records, reviewing outside results, obtaining history and physical examination, and ordering unique testing required for the patient's evaluation and care. I reviewed symptoms, imaging findings, laboratory results, physical findings, and treatment to date. I have answered patient's questions, and patient statedsatisfaction regarding the treatment plan and recommendations. Total time 32 minutes with over 50% spent in counseling and/or coordinating care. Return in about 4 weeks (around 10/19/2024) for RA, OA. documented in this encounter Miscellaneous Notes * Patient Instructions - Sharon Mcguire MD - 09/21/2024 1:00 PM EDT - New medication cymbalta 20 mg daily - plaquenil 200 mg twice a day, arava 10 mg daily - repeat uric acid at next visit, will decide on dose of allopurinol - right thumb injection to be discussed at next visit - discuss with PCP to increase dose of amlodipine ( will help with raynauds ) - RTC in 4 weeks documented in this encounter Plan of Treatment Upcoming Encounters Date Type Department Care Team (Late st Contact Info) Description 11/16/2024 11:40 AM EDT Office Visit [facility] [address] [place] [address] Sharon Mcguire MD [address] [facility] [address] documented as of this encounter Visit Diagnoses Diagnosis Seronegative rheumatoid arthritis (HCC)- Primary Rheumatoid arthritis Raynaud's disease without gangrene Fibromyalgia Mylagia and myositis, unspecified Other secondary osteoarthritis of first carpometacarpal joint of both hands Other fatigue Encounter for long-term (current) use of high-risk medication Encounter for long-term (current) use of other medications 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 Reorder 04/03/2024 09/21/2024 documented as of this encounter Historical Medications * This list may reflect changes made after this encounter. omeprazole (PRILOSEC) 20 mg Oral Capsule, Delayed Release(E.C.) Take 20 mg by mouth daily. 06/22/2024 added in this encounter Care Teams Patient Consumer Marketer Relationship Specialty Start Date End Date Sharon Mcguire MD [address] [facility] [address] Internal Medicine-Rheumatology 09/02/23 documented as of this encounter
--- OUTSIDE RECORDS SUMMARY | 2024-10-19 11:40 | XMS_ITS | Encounter Summary ---
Author Organization [facility] Address [address] [place] [address] Care Team Providers Care Finance Admin Name Role Phone Sharon Mcguire MD Unavailable Reason for Visit * Reason Comments Rheumatoid Arthritis Encounter Details Date Type Department Care Team (Latest Contact Info) Description 10/19/2024 11:40 AM EDT Office Visit [facility] [address] [place] [address] Sharon Mcguire MD [address] [place] [address] Seronegative rheumatoid arthritis (HCC) (Primary Dx); Fibromyalgia; Raynaud's disease without gangrene; Other secondary osteoarthritis of first carpometacarpal joint of both hands; Other fatigue; Encounter for long-term (current) use of high-risk medication; 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, unspecified laterality Social History Tobacco Use Types Packs/Day Years Used Date Smoking Tobacco: Never Passive Smoke Exposure: Never Smokeless Tobacco: Never Tobacco Cessation:Counseling Given: Not Answered Alcohol Use Standard Drinks/Week Comments Never 0 [...] Sign Reading Time Taken Comments Blood Pressure 110/68 10/19/2024 11:43 AM EDT Pulse - - Temperature 36.2 C (97.2 F) 10/19/2024 11:43 AM EDT Respiratory Rate - - Oxygen Saturation - - Inhaled Oxygen Concentration - - Weight 83.8 kg (184 lb 12.8 oz) 025 11:43 AM EDT Height 177.8 cm (5' 10 ) 10/19/2024 11: 43 AM EDT Body Mass Index 26.52 10/19/2024 11:43 AM EDT documented in this encounter Ordered Prescriptions Prescription Sig Dispense Quantity Refills Last Filled Start Date End Date hydroxychloroquine (PLAQUENIL) 200 mg Oral TabletIndications:S eronegative rheumatoid arthritis (HCC),Encounter for long-term (current) use of high-risk medication Take 1 Tablet by mouth 2 times daily. 180 Tablet 10/19/2024 leflunomide (ARAVA) 10 mg Oral TabletIndications:S eronegative rheumatoid arthritis (HCC),Encounter for long-term (current) use of high-risk medication Take 1 Tablet by mouth daily. 90 Tablet 10/19/2024 documented in this encounter Progress Notes * Sharon Mcguire MD - 10/19/2024 11:40 AM EDT Images from the original note were [...] - allopurinol 100 mg daily (01/07- ) - cymbalta 20 mg daily ( 09/21/24- )dizziness reviewed labs done on 08/21/24 at [facility] ( showed results on phone ) - normal CBC, creat, LFTs Events since last visit: - New medication cymbalta 20 mg daily: new onset dizziness, but has helped a lot - plaquenil 200 mg twice a day, arava 10 mg daily - discuss with PCP to increase dose of amlodipine ( will help with raynauds ): she will see her PCPin few weeks reviewed Ophthalmology notes:[facility] tip length checker: Dr Brian Stevens date of exam:07/29/24 impression:no e/o toxicity RTC:1 year, 08/09 The pain / function / disease activity questionnaire was filled out by the patient and reviewed with me. Function on mHAQ = 4 Pain on 10-cm VAS = 2.5 PTGL= 5 Disease Activity on RAPID 3 = 3.5 REVIEW OF SYSTEMS See HPI for further [...] Outpatient Medications Marked as Taking for the 10/19/24 encounter (Office Visit) with Sharon Mcguire MD Medication Sig Dispense Refill allopurinoL (ZYLOPRIM) 100 mg Oral Tablet Take 1 Tablet by mouth daily. 30 Tablet 2 amLODIPine-benazepril (LOTREL) 2.5-10 mg Oral Capsule Take 1 Capsule by mouth daily. atorvastatin (LIPITOR) 10 mg Oral Tablet Take 10 mg by mouth daily. DULoxetine (CYMBALTA) 20 mg Oral Capsule, Delayed Release(E.C.) Take 1 Capsule by mouth daily. 30 Capsule 2 glimepiride (AMARYL) 4 mg Oral Tablet Take 4 mg by mouth every morning (before breakfast). hydroxychloroquine (PLAQUENIL) 200 mg Oral Tablet Take 1 Tablet by mouth 2 times daily. 180 Tablet 0 [DISCONTINUED] hydroxychloroquine (PLAQUENIL) 200 mg Oral Tablet Take 1 Tablet by mouth 2 times daily. 60 Tablet 0 leflunomide (ARAVA) 10 mg Oral Tablet Take 1 Tablet by mouth daily. 90 Tablet 0 [DISCONTINUED] leflunomide (ARAVA) 10 mg Oral Tablet Take 1 Tablet by mouth daily. 30 Tablet 2 metFORMIN (GLUCOPHAGE) 850 mg Oral Tablet Take 850 mg by mouth 3 times daily. (Patient taking differently: Take 850 mg by mouth 2 times daily.) omeprazole (PRILOSEC) 20 mg Oral Capsule, Delayed Release(E.C.) Take 20 mg by mouth daily. Objective: Vital Signs: BP 110/68 (BP Location: Left arm, Patient Position: Sitting) Temp 97.2 ??F (36.2 ??C) (Forehead) Ht 5' 10 (1.778 m) Wt 184 lb 12.8 oz (83.8 kg) BMI 26.52 kg/m?? Body mass index is 26.52 kg/m??. 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, 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, rest mariama panel negative, she has a diagnosis of MCTD( diagnosed by her previous supervisor travel trailer ) , but repeat labs showed negative GISSELLE , LEG ASSEMBLER and mariama panel, diagnosis was changed tos seronegative RA - on plaquenil 400 mg daily since 05/06, arava 10 mg daily since 2021 - no disease activity on exam - Plan: continue plaquenil 400 mg daily, arava 10 mg daily, monitoring labs today Orders: - CBC WITH AUTO DIFF-QUEST; Future - CREATININE-QUEST; Future - HEPATIC FUNCTION PANEL-QUEST; Future - URIC ACID-QUEST; Future - SEDIMENTATION RATE AUTOMATED-QUEST; Future - C REACTIVE PROTEIN-QUEST; Future - leflunomide (ARAVA) 10 mg Oral Tablet; Take 1 Tablet by mouth daily. Dispense: 90 Tablet; Refill:0 - hydroxychloroquine (PLAQUENIL) 200 mg Oral Tablet; Take 1 Tablet by mouth 2 times daily. Dispense: 180 Tablet; Refill: 0 Fibromyalgia - she started cymbalta 20 mg daily on 09/21/24, has helped her overall aches, but has new onset dizziness. She is unable to take it at night , caused insomnia. - Plan: stop cymbalta Raynaud's disease without gangrene Other secondary osteoarthritis of first carpometacarpal joint of both hands - CBC WITH AUTO DIFF-QUEST; Future - CREATININE-QUEST; Future - HEPATIC FUNCTION PANEL-QUEST; Future - URIC ACID-QUEST; Future - SEDIMENTATION RATE AUTOMATED-QUEST; Future - C REACTIVE PROTEIN-QUEST; Future Other fatigue Encounter for long-term (current) use of high-risk medication Overview: Medication safety questionnaire DVT:no PE: no NM:no Heart failure: no Stroke: no Shingles:no diverticulitis: [...] NR-09/09/23 - eye exam on plaquenil- 06/12/23, 05/2024-no s/o toxicity, RTC:1 year - MBS-09/21/23- suspect esophageal dysphagia - DEXA [...] instructed to read educational material concerning medication Orders: - CBC WITH AUTO DIFF-QUEST; Future - CREATININE-QUEST; Future - HEPATIC FUNCTION PANEL-QUEST; Future - URIC ACID-QUEST; Future - SEDIMENTATION RATE AUTOMATED-QUEST; Future - C REACTIVE PROTEIN-QUEST; Future - leflunomide (ARAVA) 10 mg Oral Tablet; Take 1 Tablet by mouth daily. Dispense: 90 Tablet; Refill:0 - hydroxychloroquine (PLAQUENIL) 200 mg Oral Tablet; Take 1 Tablet by mouth 2 times daily. Dispense: 180 Tablet; Refill: 0 Other secondary chronic gout of foot without [...] and weight reduction was discussed. - Plan: repeat uric acid level Instructions: - arava 10 mg daily - plaquenil 200 mg twice a day - stop cymbalta - keep a BP log, follow up with PCP if symptoms of dizziness do not improve - monitoring labs today - RTC in 4 weeks This is a moderate complexity [id number] visit based on reviewing outside records, reviewing outside results, obtaining history and physical examination, and ordering unique testing required for the patient's evaluation and care. I reviewed symptoms, imaging findings, laboratory results, physical findings, and treatment to date. I have answered patient's questions, and patient statedsatisfaction regarding the treatment plan and recommendations. Total time 35 minutes with over 50% spent in counseling and/or coordinating care. Return in about 4 weeks (around 11/16/2024) for RA, fibromyalgia. documented in this encounter Miscellaneous Notes * Patient Instructions - Sharon Mcguire MD - 10/19/2024 11:40 AM EDT - arava 10 mg daily - plaquenil 200 mg twice a day - stop cymbalta - keep a BP log, follow up with PCP if symptoms of dizziness do not improve - monitoring labs today - RTC in 4 weeks documented in this encounter Plan of Treatment Upcoming Encounters Date Type Department Care Team (Late st Contact Info) Description 11/16/2024 11:40 AM EDT Office Visit [facility] [address] [place] [address] Sharon Mcguire MD [address] [place] [address] documented as of this encounter Procedures Procedure Name Priority Date/Time Associated Diagnosis Comments URIC ACID-QUEST Routine 10/19/2024 12:02 PM EDT Seronegative rheumatoid arthritis (HCC) Other secondary osteoarthritis of first carpometacarpal joint of both hands Encounter for long-term (current) use of high-risk medication SEDIMENTATION RATE AUTOMATED-QUEST Routine 10/19/2024 12:02 PM EDT Seronegative rheumatoid arthritis (HCC) Other secondary osteoarthritis of first carpometacarpal joint of both hands Encounter for long-term (current) use of high-risk medication HEPATIC FUNCTION PANEL-QUEST Routine 10/19/2024 12:02 PM EDT Seronegative rheumatoid arthritis (HCC) Other secondary osteoarthritis of first carpometacarpal joint of both hands Encounter for long-term (current) use of high-risk medication CREATININE-QUEST Routine 10/19/2024 12:0 2 PM EDT Seronegative rheumatoid arthritis (HCC) Other secondary osteoarthritis of first carpometacarpal joint of both hands Encounter for long-term (current) use of high-risk medication C REACTIVE PROTEIN-QUEST Routine 10/19/2024 12:02 PM EDT Seronegative rheumatoid arthritis (HCC) Other secondary osteoarthritis of first carpometacarpal joint of both hands Encounter for long-term (current) use of high-risk medication CBC WITH AUTO DIFF-QUEST Routine 10/19/2024 12:02 PM EDT Seronegative rheumatoid arthritis (HCC) Other secondary osteoarthritis of first carpometacarpal joint of both hands Encounter for long-term (current) use of high-risk medication documented in this encounter Results * C REACTIVE PROTEIN-QUEST (10/19/2024 12:02 PM EDT) CRP <3.0 <8.0 mg/L [facility] 10/19/2024 12:0 2 PM EDT 10/19/2024 12:03 PM EDT Sharon Mcguire MD [facility]-CHEMISTRY ORDERABLES Final Result Performing Organization Address City/[facility]/ZIP Co de Phone Number QUEST [facility] [address] [place] [address] * SEDIMENTATION RATE AUTOMATED-QUEST (10/19/2024 12:02 PM EDT) Sed Rate 6 < OR = 30 mm/h [facility] 10/19/2024 12:0 2 PM EDT 10/19/2024 12:03 PM EDT Sharon Mcgiure MD [facility]-HEMATOLOGY ORDERABLES Alivia l Result [facility] [address] [place] [address] * URIC ACID-QUEST (10/19/2024 12:02 PM EDT) Uric Acid 3.0 2.5 - 7.0 mg/dL [facility] Comment: Therapeutic target for gout patients: <6.0 mg/dL 10/19/2024 12:0 2 PM EDT 10/19/2024 12:03 PM EDT Sharon Mcguire MD [facility]-CHEMISTRY ORDERABLES Final Result Performing Organization Address [facility]/State/ZIP Co de Phone Number [facility] [address] [place] [address] * HEPATIC FUNCTION PANEL-QUEST (10/19/2024 12:02 PM EDT) Pathologist [facility] Protein, Total 7.3 6.1 - 8.1 g/dL [facility] Albumin 4.8 3.6 - 5.1 g/dL [facility] Globulin 2.5 1.9 - 3.7 g/dL (calc) [facility] Albumin/Globuli n Ratio 1.9 1.0 - 2.5 (calc) [facility] Total Bilirubin 0.6 0.2 - 1.2 mg/dL [facility] Bilirubin, Direct (Micro) 0.1 < OR = 0.2 mg/dL [facility] Bilirubin, Indirect (Micro) 0.5 0.2 - 1.2 mg/dL (calc) [facility] Alk Phos 106 37 - 153 U/L [facility] AST 20 10 - 35 U/L [facility] ALT 21 6 - 29 U/L [facility] 10/19/2024 12:0 2 PM EDT 10/19/2024 12:03 PM EDT Sharon Mcguire MD [facility]-CHEMISTRY ORDERABLES Final Result Performing Organization Address City/[facility]/ZIP Co de Phone Number [facility] [address] [place] [address] * CREATININE-QUEST (10/19/2024 12:02 PM EDT) Creatinine 0.94 0.50 - 1.05 mg/dL [facility] EGFR 68 > OR = 60 mL/min/1.73 m2 [facility] 10/19/2024 12:0 2 PM EDT 10/19/2024 12:03 PM EDT us Sharon Mcguire MD [facility]-CHEMISTRY ORDERABLES Final Result [facility] [address] [place] [address] * (ABNORMAL) CBC WITH AUTO DIFF-QUEST (10/19/2024 12:02 PM EDT) WBC 7.7 3.8 - 10.8 Thousand/u L [facility] RBC 4.43 3.80 - 5.10 Million/uL [facility] Hemoglobin 12.6 11.7 - 15.5 g/dL [facility] Hematocrit 39.8 35.0 - 45.0 % [facility] MCV 89.8 80.0 - 100.0 fL [facility] MCH 28.4 27.0 - 33.0 pg [facility] MCHC 31.7(L) 32.0 - 36.0 g/dL [facility] Comment: For adults, a slight decrease in the calculated MCHC value (in the range of 30 to 32 g/dL) is most likely not clinically significant; however, it should be interpreted with caution in correlation with other red cell parameters and the patient's clinical condition. RDW 12.5 11.0 - 15.0 % [facility] Platelets 319 140 - 400 Thousand/u L [facility] MPV 9.9 7.5 - 12.5 fL [facility] Neut# 3,403 1,500 - 7,800 cells/uL [facility] Lymph# 3,319 850 - 3,900 cells/uL [facility] Monocytes(Absolu te) 562 200 - 950 cells/uL [facility] Eos 323 15 - 500 cells/uL [facility] Baso# 92 0 - 200 cells/uL [facility] Neut Percent 44.2 % [facility] Lymph Percent 43.1 % [facility] Monocytes 7.3 % [facility] Eos Percent 4.2 % [facility] Baso Percent 1.2 % [facility] 10/19/2024 12:0 2 PM EDT 10/19/2024 12:03 PM EDT Sharon Mcguire MD [facility]-HEMATOLOGY ORDERABLES Alivia l Result [facility] [address] [place] [address] documented in this encounter Visit Diagnoses Diagnosis Seronegative rheumatoid arthritis (HCC)- Primary Rheumatoid arthritis Fibromyalgia Mylagia and myositis, unspecified Raynaud's disease without gangrene Other secondary osteoarthritis of first carpometacarpal joint of both hands Other fatigue Encounter for long-term (current) use of high-risk medication Encounter for long-term (current) use of other medications 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 Reorder 04/03/2024 10/19/2024 hydroxychloroquine (PLAQUENIL) 200 mg Oral TabletIndications:Serone gative rheumatoid arthritis (HCC),Encounter for long-term (current) use of high-risk medication Take 1 Tablet by mouth 2 times daily. Reorder 07/12/2024 10/19/2024 documented as of this encounter Care Teams Finance Admin Relationship Specialty Start Date End Date Sharon Mcguire MD [address] [place], [place] [address] Internal Medicine-Rheumatology 09/02/23 documented as of this encounter
[2024-11-06 19:19] LABS: Albumin Level 4.3 g/dl (3.5-5.0); Chloride 100 mmol/L (98-107); Sodium 139 mmol/L (136-145)
[2024-11-06 19:20] LABS: Potassium 4.6 mmoL/L (3.5-5.1)
[2024-11-06 19:22] LABS: Alanine Aminotransferase 25 U/L (12-78); Albumin/Globulin Ratio 1.5 (1.1-1.8); Anion Gap 18.6 mEq/L (5-15); Aspartate Amino Transferase 24 U/L (14-36); Bilirubin,Total 0.4 mg/dl (0.2-1.3); Blood Urea Nitrogen 15 mg/dl (7-17); Carbon Dioxide 25 mmol/L (22.0-30.0); Cholesterol 118 mg/dl (140-200); Estimated Glomerular Filt Rate 72 ml/min (>60); GFR (African American) 87 ML/MIN (>60); Globulin 2.9 g/dL (1.3-3.2); Total Protein,Serum 7.2 g/dl (6.3-8.2); Triglycerides 229 mg/dl (30-150); VLDL Cholesterol 46 mg/dL (0-40)
[2024-11-06 19:23] LABS: Alkaline Phosphatase 111 U/L (38-126); Calcium 9.5 mg/dl (8.4-10.2); Chol/HDL Ratio 3.1 (1-3.5); Glucose 253 mg/dl (74-100); HDL Cholesterol 38 mg/dl (40-60)
[2024-11-06 19:35] LABS: Direct LDL Cholesterol 40.32 mg/dL (100-129)
[2024-11-06 20:08] LABS: Hemoglobin A1C 10.6 % (4.0-6.0)
--- OUTSIDE RECORDS SUMMARY | 2024-11-08 10:14 | XMS_ITS | Clinical Summary ---
Author Organization [facility] Address [address] [place] [address] Phone Care Team Providers Care Dray Driver Name Role Phone Sharon Mcguire MD Unavailable Allergies No known active allergies Medications metFORMIN (GLUCOPHAGE) 850 mg Oral Tablet Take 850 mg by mouth 3 times daily. Active glimepiride (AMARYL) 4 mg Oral Tablet Take 4 mg by mouth every morning (before breakfast). Active atorvastatin (LIPITOR) 10 mg Oral Tablet Take 10 mg by mouth daily. Active amLODIPine-benaz epril (LOTREL) 2.5-10 mg Oral Capsule Take 1 Capsule by mouth daily. 10/14/2023 Active omeprazole (PRILOSEC) 20 mg Oral Capsule, Delayed Release(E.C.) Take 20 mg by mouth daily. 06/22/2024 Active DULoxetine (CYMBALTA) 20 mg Oral Capsule, Delayed Release(E.C.) Take 1 Capsule by mouth daily. 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 30 Tablet 2 09/21/2024 Active leflunomide (ARAVA) 10 mg Oral TabletIndication s:Seronegative rheumatoid arthritis (HCC),Encounter for long-term (current) use of high-risk medication Take 1 Tablet by mouth daily. 90 Tablet 10/19/2024 Active hydroxychloroqui ne (PLAQUENIL) 200 mg Oral TabletIndication s:Seronegative rheumatoid arthritis (HCC),Encounter for long-term (current) use of high-risk medication Take 1 Tablet by mouth 2 times daily. 180 Tablet 10/19/2024 Active Active Problems Problem Noted Date Diagnosed Date Cellulitis of right foot 11/30/2023 Diabetes mellitus 11/30/2023 Gout 11/30/2023 Overview (02/07/2024): - involves bilateral big toes, xrays showed eo erosions on 1 MTP, most recent uric acid in 09/07 was 4.7, presents like cellulitis - started allopurinol 100 mg daily in 01/07 - The diagnosis of gouty arthritis was discussed. I did discuss modifiable risk factors, mainly food and weight. The association was discussed of gout and food containing high uric acid, particularly meat, shellfish, and alcohol. The importance of dietary modification and weight reduction was discussed. MCTD (mixed connective tissue disease) Pneumonia 11/30/2023 Raynaud disease 11/30/2023 Seronegative rheumatoid arthritis 09/23/2023 Overview (09/23/2023): - raynauds, inflammatory arthritis, elevated BAGGAGEMAN, 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, rest mariama panel negative, she has a diagnosis of MCTD( diagnosed by her previous supply crib attendant ) , but repeat labs showed negative GISSELLE , BAGGAGEMAN and mariama panel, diagnosis was changed tos seronegative RA - on plaquenil 400 mg daily since 05/06, arava 10 mg daily since 2021 History of gout 09/23/2023 Overview (09/23/2023): - last gout attack in 2019, involves bilateral big toes, xrays showed eo erosions on 1 MTP, most recent uric acid in 09/07 was 4.7 - Plan: start allopurinol if she develops another flare Encounter for long-term (cur rent) use of high-risk medication 09/09/2023 Overview (10/19/2024): Medication safety questionnaire DVT:no PE: no WA:no Heart failure: no Stroke: no Shingles:no diverticulitis: [...] bone marrow suppression, anemia, infections (including respiratory tract infections), GI side effects, rash, alopecia, and/or pulmonary [...] as SJS), metabolic (hypoglycemia), hematologic (low blood counts), nausea, abdominal pain, and/or eye side effects (including retinal toxicity) were discussed with the patient today. - Patient understands that annual eye exam is required in order to safely continue to prescribe this drug. - Patient understands to hold med if vision changes do occur and to immediately discuss with ophthalmology. - Patient instructed to read educational material concerning medication Post-menopausal 09/09/2023 Overview (09/09/2023): - DEXA scan 10/06- normal BMD Encounters Date Type Department Care Team Description 10/22/2024 Results Follow-Up [facility] [address] [place] [address] Sharon Mcguire MD CBC WITH AUTO DIFF-QUEST, CREATININE-QUEST, HEPATIC FUNCTION PANEL-QUEST, Additional followed-up results: 3 10/19/2024 11:40 AM EDT Office Visit [facility] [address] [place] [address] Sharon Mcguire MD Seronegative rheumatoid arthritis (HCC) (Primary Dx); Fibromyalgia; Raynaud's disease without gangrene; Other secondary osteoarthritis of first carpometacarpal joint of both hands; Other fatigue; Encounter for long-term (current) use of high-risk medication; 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, unspecified laterality 09/21/2024 1:00 PM EDT Office Visit [facility] [address] [place] [address] Sharon Mcguire MD Seronegative rheumatoid arthritis (HCC) (Primary Dx); Raynaud's disease without gangrene; Fibromyalgia; Other secondary osteoarthritis of first carpometacarpal joint of both hands; Other fatigue; Encounter for long-term (current) use of high-risk medication; 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 FOOT SURGERY 04/19/2024 Right FOOT SURGERY 05/24/2024 Right Medical History Medical History Date Comments Arthritis Diabetes mellitus (HCC) Rash Family History Medical History Relation Name Comments Diabetes Father Se Heart Abnormality Father Se melanoma cancer Father Se Emphysema Maternal Grandfather Alzheimer's Disease Maternal Grandmother Arthritis Mother Yesica Diabetes Mother Yesica Dementia Paternal Grandfather Parkinson's Disease Paternal Grandfather Stomach Cancer Paternal Grandmother Tan Diabetes Sister Tierney Relation Name Status Comments Father Se Maternal Grandfather Maternal Grandmother Mother Yesica Paternal Grandfather Paternal Grandmother Tan Sister Tierney Social History Tobacco Use Types Packs/Day Years [...] file Not on file Not on file Obstetrics History Last Filed Vital Signs Vital Sign Reading Time Taken Comments Blood Pressure 110/68 10/19/2024 11:43 AM EDT Pulse 73 01/21/2024 7:47 AM EDT Temperature 36.2 C (97.2 F) 10/19/2024 11:43 AM EDT Respiratory Rate 14 01/21/2024 7:47 AM EDT Oxygen Saturation 97% 01/21/2024 7:47 AM EDT Inhaled Oxygen Concentration - - Weight 83.8 kg (184 lb 12.8 oz) 025 11:43 AM EDT Height 177.8 cm (5' 10 ) 10/19/2024 11: 43 AM EDT Body Mass Index 26.52 10/19/2024 11:43 AM EDT Plan of Treatment Upcoming Encounters Date Type Department Care Team (Late st Contact Info) Description 11/16/2024 11:40 AM EDT Office Visit [facility] [address] [place] [address] Sharon Mcguire MD [address] [place] [address] Health Maintenance Due Date Last Done Comments Annual Wellness Exam 1963 COVID-19 Vaccine (#1) 1965 Kidney Health: uACR 1970 Lipids 1970 Diabetic Eye Exam 1978 Hemoglobin A1c 1978 DTaP/TDaP/Td (1 - Tdap) 1979 Pneumococcal Vaccine 50+ (1 of 2 - PCV) 1979 Zoster (1 of 2) 1979 Cervical Cancer Screening 1981 Pap Smear 1981 HPV/Pap Cotest 1990 Cologuard 2005 FIT 2005 Sigmoidoscopy 2005 Virtual Colonography 2005 RSV or 60+ (1 - Risk 60-74 years 1-dose series) 2020 Breast Cancer Screening 06/08/2024 06/08/19 23, 06/08/2022, 05/02/2021, Additional history exists Kidney Health: eGFR 09/08/2024 09/09/2023 Influenza Vaccine (Season Ended) 2025 03/06/2016 Colon Cancer Screening 01/18/2034 Colonoscopy 01/18/2034 01/21/2024 Hepatitis C Screening Completed 09/09/2023 Hepatitis B Vaccine Aged Out No longe r eligible based on patient's age to complete this topic Meningococcal B Vaccine Aged Out No l onger eligible based on patient's age to complete this topic Procedures Procedure Name Priority Date/Time Associated Diagnosis Comments C REACTIVE PROTEIN-QUEST Routine 10/19/2024 12:02 PM EDT Seronegative rheumatoid arthritis (HCC) Other secondary osteoarthritis of first carpometacarpal joint of both hands Encounter for long-term (current) use of high-risk medication SEDIMENTATION RATE AUTOMATED-QUEST Routine 10/19/2024 12:02 PM EDT Seronegative rheumatoid arthritis (HCC) Other secondary osteoarthritis of first carpometacarpal joint of both hands Encounter for long-term (current) use of high-risk medication URIC ACID-QUEST Routine 10/19/2024 12:02 PM EDT [...] for long-term (current) use of high-risk medication COLONOSCOPY Routine 01/21/2024 7:30 AM EDT Screening for colon cancer CREATININE Routine 09/09/2023 11:22 AM EDT Mixed connective tissue disease ACUTE HEPATITIS PANEL Routine 09/09/2023 11:22 AM EDT Mixed connective tissue disease Encounter for long-term (current) use of high-risk medication from Last 3 Months or Most Recently Relevant to Health Maintenance Results * URIC ACID-QUEST (10/19/2024 12:02 PM EDT) Uric Acid 3.0 2.5 - 7.0 mg/dL [facility] Comment: Therapeutic target for gout patients: <6.0 mg/dL 10/19/2024 12:0 2 PM EDT 10/19/2024 12:03 PM EDT Sharon Mcguire MD [facility]-CHEMISTRY ORDERABLES Final Result Performing Organization Address [facility]/ZIP Co de Phone Number [facility] [address] [place] [address] * SEDIMENTATION RATE AUTOMATED-QUEST (10/19/2024 12:02 PM EDT) Sed Rate 6 < OR = 30 mm/h [facility] 10/19/2024 12:0 2 PM EDT 10/19/2024 12:03 PM EDT Sharon Mcguire MD [facility]-HEMATOLOGY ORDERABLES Alivia l Result [email or web address] [address] [place] [address] * HEPATIC FUNCTION PANEL-QUEST (10/19/2024 12:02 PM [...] Mcguire MD [facility]-CHEMISTRY ORDERABLES Final Result [facility] [employer] [facility] [address] [place] [address] * CREATININE-QUEST (10/19/2024 12:02 PM EDT) Creatinine 0.94 0.50 - 1.05 mg/dL [facility] EGFR 68 > OR = 60 mL/min/1.73 m2 [facility] 10/19/2024 12:0 2 PM EDT 10/19/2024 12:03 PM EDT Sharon Mcguire MD [facility]-CHEMISTRY ORDERABLES Final Result [facility] [employer] [facility] [address] [place] [address] * C REACTIVE PROTEIN-QUEST (10/19/2024 12:02 PM EDT) CRP <3.0 <8.0 mg/L [facility] 10/19/2024 12:0 2 PM EDT 10/19/2024 12:03 PM EDT Sharon Mcguire MD [facility]-CHEMISTRY ORDERABLES Final Result [facility] [address] [place] [address] * (ABNORMAL) CBC WITH AUTO DIFF-QUEST (10/19/2024 [...] 12:03 PM EDT us Sharon Mcguire MD [facility]-HEMATOLOGY ORDERABLES Alivia l Result [facility] [address] [place] [address] * COLONOSCOPY (01/21/2024 7:30 AM EDT) Anatomical Region Laterality Modality Endoscopy Narrative 01/21/2024 7:34 AM EDT Table formatting from the original result was not included. Findings Internal medium hemorrhoids The terminal ileum and entire colon appeared normal. Recommendation Recommend a high fiber diet. Repeat screening colonoscopy in 10 years, due: 01/18/2034 Pre-Procedure Diagnosis / Indication Screening for colon cancer Post-Procedure Diagnosis Screening for colon cancer Staff Staff Role No Staff Documented Medications See Anesthesia Record. Preprocedure A history and physical has been performed, and patient medication allergies have been reviewed. The patient's tolerance of previous anesthesia has been reviewed. The risks and benefits of the procedure and the sedation options and risks were discussed with the patient. All questions were answered and informed consent obtained. ASA 2 - Patient with mild systemic disease Details of the Procedure The patient underwent monitored anesthesia care, which was administered by an anesthesia professional. The patient's blood pressure, heart rate, level of consciousness, oxygen, respirations, ECG and ETCO2 were monitored throughout the procedure. A digital rectal exam was performed. The scope was introduced through the anus and advanced to the cecum. Retroflexion was performed in the rectum. Bowel prep was adequate. The patient experienced no blood loss. The procedure was not difficult. The patient tolerated the procedure well. There were no apparent adverse events. Patient provided education and educated on specific discharge instructions. Patient educated on medications given during the procedure and new medications for discharge. Patient verbalizes understanding of discharge education. Patient stable and awaiting transport for discharge. Events Procedure Events Event Event Time ENDO SCOPE IN TIME 01/21/2024 7:02 AM ENDO SCOPE OUT TIME 01/21/2024 7:09 AM ENDO SCOPE IN TIME 01/21/2024 7:16 AM ENDO CECUM REACHED 01/21/2024 7:21 AM ENDO SCOPE WITHDRAW BEGIN 01/21/2024 7:21 AM TSG LUME TI REACHED 01/21/2024 7:22 AM ENDO SCOPE OUT TIME 01/21/2024 7:30 AM Specimens ID Type Source Tests Collected by Time 1 : Tissue Esophagus TSG PATHOLOGY ORDER You Vo MD 01/21/2024 0712 2 : Tissue Gastric TSG PATHOLOGY ORDER You Vo MD 01/21/2024 0712 You Vo MD ENDOSCOPY PROCEDURE ORDERABLE S Final Result * ACUTE HEPATITIS PANEL (09/09/2023 11:22 AM EDT) Pathologist [facility] [place] Hep Bs Ag Non-Reacti ve Non-Reacti ve 09/09/2023 12:55 PM EDT PREFERRED LAB [facility] Hep B Core IgM Non-Reacti ve Non-Reacti ve 09/09/2023 12:55 PM EDT PREFERRED [employer] [employer] Hep A IgM Non-Reacti ve Non-Reacti ve 09/09/2023 12:55 PM EDT PREFERRED [employer] [employer] Hep C Ab Non-Reacti ve Non-Reacti ve 09/09/2023 12:55 PM EDT PREFERRED LAB [facility] Blood VENOUS BLOOD / Unknown Venipuncture / Unknown 09/09/2023 11:22 AM EDT 09/09/2023 11:22 AM EDT Sharon Mcguire MD CHEMISTRY ORDERABLES Final Resul t PREFERRED LAB [facility] [address] [facility] , [address] [place] [id number] * CREATININE (09/09/2023 11:22 AM EDT) Pathologist [facility] [place] Creatinine 0.82 0.51 - 1.30 mg/dL 09/09/2023 12:12 PM EDT PREFERRED LAB [facility] eGFR (CKD-EPIcr 2020) 80 >=60 mL/min/1.7 3 m2 09/09/2023 12:12 PM EDT [facility] Comment:Estimated GFR was ca lculated using the CKD-EPIcr (2020) equation refit without race. The equation is recommended by the National Kidney Foundation - [place] [employer] of Nephrology Task Force. Blood VENOUS BLOOD / Unknown Venipuncture / Unknown 09/09/2023 11:22 AM EDT 09/09/2023 11:22 AM EDT us Sharon Mcguire MD CHEMISTRY ORDERABLES Final Resul t PREFERRED [id number] [address] [facility], [place] [address] [facility] [address] [place] [address] from Last 3 Months or Most Recently Relevant to Health Maintenance Insurance Care Teams Dray Driver Relationship Specialty Start Date End Date Sharon Mcguire MD [address] [facility] [place] [address] Internal Medicine-Rheumatology 09/02/23
--- OUTSIDE RECORDS SUMMARY | 2024-11-08 10:14 | XMS_ITS | Referral Summary ---
Author Organization [employer] [facility] Address [address] [place] [address] Care Team Providers Care Stave Log Cut Off Saw Operator Name Role Phone Calin Edmonds MD Primary Care Provider [phone] Allergies No known active allergies Medications metFORMIN (GLUCOPHAGE) 850 MG tablet Take 1 tablet (850 mg total) by mouth. Active predniSONE (DELTASONE) 5 MG tabletIndications:M CTD (mixed connective tissue disease) ([facility]) Take 1 tablet daily as needed for major joint flares.. 30 tablet 2 Active glimepiride (AMARYL) 4 MG tablet Take 1 tablet (4 mg total) by mouth every morning before breakfast. Active B-complex with vitamin C tablet Take 1 tablet by mouth daily. Active leflunomide (ARAVA) 10 MG tabletIndications:M CTD (mixed connective tissue disease) ([facility]) Take 1 tablet (10 mg total) by mouth every morning. 30 tablet 2 4 Active hydroxychloroquine (PLAQUENIL) 200 mg tabletIndications:M CTD (mixed connective tissue disease) ([facility]) Take 1 tablet (200 mg total) by mouth 2 (two) times daily. 60 tablet 2 4 Active folic acid (FOLVITE) 1 MG tabletIndications:M CTD (mixed connective tissue disease) (HCC) Take 2 tablets (2,000 mcg total) by mouth daily. 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 Positive antinuclear antibody 05/30/2021 Joint stiffness 05/01/2021 Social History Tobacco Use Types Packs/Day Years Used Date Smoking Tobacco: Never Smokeless Tobacco: Never Tobacco Cessation:Counseling Given: No Alcohol Use Standard Drinks/Week Comments Not Currently 0 (1 standard drink = 0.6 oz pur e alcohol) Interpersonal Safety Answer Date Record ed Family or friends hurt you Not on file 06/04 Family or friends insult you Not on file Family or friends threaten you Not on file 0 06/04/2023 Family or friends scream or curse at you Not on file 06/04/2023 Housing Stability Answer Date Recorded Living situation today Not on file Living situation problems Not on file 2023 Food Insecurity Answer Date Recorded Food run out past 12 months Not on file 05/17 Food did not last past 12 months Not on file 06/04/2023 Employment Answer Date Recorded Help finding and keeping a job Not on file 0 06/04/2023 Family and Community Support Answer Tristian e Recorded Help with Day to Day Activities Not on file 06/04/2023 Feeling Lonely or Isolated Not on file 06/04 Educational Attainment Answer Date Omer rded Speak language other than Belarusian at home Not on file 06/04/2023 Want help with school or training Not on file 06/04/2023 Depression Answer Date Recorded PHQ-2 Risk Not on file 06/04/2023 Disabilities Answer Date Recorded Difficulty concentrating Not on file 024 Difficulty doing errands alone Not on file 0 06/04/2023 Substance Use Answer Date Recorded Used prescription meds for non-medical reasons N ot on file 06/04/2023 Used illegal drugs past 12 months Not on file 06/04/2023 Comments Unknown Sex and Gender Information Value Date Recorded Sex Assigned at Not on file Legal Sex Female 3:31 PM CDT Gender Identity Not on file Sexual Orientation Not on file Last Filed Vital Signs Vital Sign Reading Time Taken Comments Blood Pressure 114/77 06/18/2023 8:51 AM EST Pulse 78 06/18/2023 8:51 AM EST Temperature 36.8 C (98.3 F) 03/12/2023 9:01 AM EDT Respiratory Rate - - Oxygen Saturation 98% 03/12/2023 9:01 AM EDT Inhaled Oxygen Concentration - - Weight 84.4 kg (186 lb) 06/18/2023 8:51 AM EST Height 177.8 cm (5' 10 ) 06/18/2023 8:51 AM EST Body Mass Index 26.69 06/18/2023 8:51 AM EST Plan of Treatment Not on file Insurance [facility] Care Teams Stave Log Cut Off Saw Operator Relationship Specialty Start Date End Date Calin Edmonds MD [address] [address] PCP - General Family Medicine 03/13/22
--- OUTSIDE RECORDS SUMMARY | 2024-11-08 10:15 | XMS_ITS | Clinical Summary ---
Author Organization [employer] [facility] Address [address] [place] [address] Care Team Providers Care Brick And Tile Making Machine Operator Name Role Phone Calin Edmonds MD Primary Care Provider [phone] Allergies No known active allergies Medications metFORMIN (GLUCOPHAGE) 850 MG tablet Take 1 tablet (850 mg total) by mouth. Active predniSONE (DELTASONE) 5 MG tabletIndications:M CTD (mixed connective tissue disease) ([facility]) Take 1 tablet daily as needed for major joint flares.. 30 tablet 2 Active glimepiride (AMARYL) 4 MG tablet Take 1 tablet (4 mg total) by mouth every morning before breakfast. Active B-complex with vitamin C tablet Take 1 tablet by mouth daily. Active leflunomide (ARAVA) 10 MG tabletIndications:M CTD (mixed connective tissue disease) ([facility]) Take 1 tablet (10 mg total) by mouth every morning. 30 tablet 2 4 Active hydroxychloroquine (PLAQUENIL) 200 mg tabletIndications:M CTD (mixed connective tissue disease) ([facility]) Take 1 tablet (200 mg total) by mouth 2 (two) times daily. 60 tablet 2 4 Active folic acid (FOLVITE) 1 MG tabletIndications:M CTD (mixed connective tissue disease) ([facility]) Take 2 tablets (2,000 mcg total) by [...] Date Omer rded Speak language other than Nigerian at home Not on file 06/04/2023 Want [...] 06/18/2023 8:51 AM EST Plan of Treatment Health Maintenance Due Date Last Done Comments CT Colonography 1960 Colonoscopy 1960 Colorectal Cancer Screening 1960 FOBT/FIT 1960 Fit-DNA (Cologuard) 1960 Sigmoidoscopy 1960 Depression Screening (12+) 1972 HIV Screening 1975 Hepatitis C Screening 1978 DTAP/TDAP/TD VACCINES (1 - Tdap) 1979 Pap Smear 1981 Lipid Panel 2005 Pneumococcal 50+ years (1 of 1 - PCV) 2010 Shingles Vaccine (Zoster) (1 of 2) 2010 Breast Cancer Screening 08/18/2020 08/19/19 19, 11/10/2017, 11/10/2017, Additional history exists COVID-19 VACCINE ( - 2023-2 5 season) 2024 Tobacco Cessation Counseling and Screening (12+) 06/18/2024 06/18/2023 Influenza Vaccine (Season Ended) 2025 Respiratory Syncytial Virus (RSV) Adult or (1 - 1-dose 75+ series) 2035 Insurance [employer] Care Teams Brick And Tile Making Machine Operator Relationship Specialty Start Date End Date Calin Edmonds MD [address] [address] PCP - General Family Medicine 03/13/22
--- OUTSIDE RECORDS SUMMARY | 2024-11-08 10:15 | XMS_ITS | Encounter Summary ---
Author Organization [facility] Address [address] [place] [address] Care Team Providers Care Captain Of Guards Name Role Phone Sharon Mcguire MD Unavailable Encounter Details Date Type Department Care Team (Latest Contact Info) Description 10/22/2024 Results Follow-Up [facility] [address] [place] [address] Sharon Mcguire MD [address] [place] [address] CBC WITH AUTO DIFF-QUEST, CREATININE-QUEST, HEPATIC FUNCTION PANEL-QUEST, Additional followed-up results: 3 Social History Tobacco Use Types Packs/Day Years [...] on file documented as of this encounter Progress Notes * Sharon Mcguire MD - 10/22/2024 3:12 PM EDT reviewed labs done on 10/19/24 - normal CBC, creat, LFTs, sed, C-RP - uric acid 3 documented in this encounter Plan of Treatment Upcoming Encounters Date Type Department Care Team (Late st Contact Info) Description 11/16/2024 11:40 AM EDT Office Visit [facility] [address] [place] [address] Sharon Mcguire MD [address] [place] [address] documented as of this encounter Visit Diagnoses Not on filedocumented in this encounter Care Teams Captain Of Guards Relationship Specialty Start Date End Date Sharon Mcguire MD [address] [place] [address] Internal Medicine-Rheumatology 09/02/23 documented as of this encounter
--- OUTSIDE RECORDS SUMMARY | 2024-11-08 10:15 | XMS_ITS | Data Portability ---
Author Organization [place] - [facility] & [place] AD[place] Address [address] [place] [id number] Care Team Providers Care Supervisor [employer]ing Name Role Phone LAN EDMONDS Primary Care Provider [phone] Assessment No assessment recorded. Plan of Treatment Reminders Order Date Submit Date Provider Last Modified By Organization Details Last Modified Time Details Appointments None recorded. Lab CMP, serum or plasma 2023 024 ALANNA Aguirre, [address], [address], [place], [address], 4 03:36:59 lipid panel, serum 2023 024 ALANNA Aguirre, [address], [address], [place], [address], 4 03:37:00 CBC w/ auto diff 2023 024 [place] Timothy, [address], [address], [place], [address], 4 03:36:58 thyroid panel, serum 2023 024 ALANNA Aguirre, [address], [address], [place], [address], 4 03:37:01 HbA1c (hemoglobin A1c), blood 2023 024 ALANNA Aguirre, [address], [address], [place], [address], 4 03:37:02 HbA1c (hemoglobin A1c), blood 2022 023 ALANNA [facility], [address], [address], [place], [address], 3 03:37:00 CMP, serum or plasma 2022 023 ALANNA [facility], [address], [address], [place], [address], 3 03:36:56 lipid panel, serum 2022 023 [place] [facility], [address], [address], [place], [address], 3 03:36:58 HbA1c (hemoglobin A1c), blood 2022 023 [email or web address] [facility], [address], [place], [address], 3 11:50:00 CBC w/ auto diff 2022 023 [place] [facility], [address], [address], [place], [address], 3 12:36:28 ESR (erythrocyt e sedimentati on rate), blood 2022 023 [place] [facility], [address], [address], [place], [address], 3 12:36:35 C reactive protein, QN, serum or plasma 2022 023 ALANNA [facility], [address], [address], [place], [address], 3 12:36:37 CK (creatine kinase), total, serum 2022 023 [facility], [address], [address], [place], [address], 3 12:36:36 GISSELLE (antinuclea r antibodies) screen, serum 2022 023 [facility], [address], [address], [place], [address], 3 12:36:34 vitamin D, 25-hydroxy, total, serum 2022 023 [facility], [address], [address], [place], [address], 3 12:36:33 HbA1c (hemoglobin A1c), blood 2022 023 [facility], [address], [address], [place], [address], 3 12:36:32 CMP, serum or plasma 2022 023 [facility], [address], [address], [place], [address], 3 12:36:29 lipid panel, serum 2022 023 [facility], [address], [address], [place], [address], 3 12:36:31 Referral None recorded. Procedures None recorded. Surgeries None recorded. Imaging None recorded. Medication Orders Januvia 100 mg tablet 2023 024 [facility], [address], [address], 4 11:33:36 glimepiride 4 mg tablet 2022 023 [facility], [address] [place], [address], 3 11:34:11 metformin 850 mg tablet 2022 023 [facility], [address] [place], [address], 3 11:34:12 Patient TargetsNo targets recorded. Patient InstructionsNo instructions recorded. Reason for Referral None Reported. Results Created Date Observation Date Name Description Value Unit Range Abnormal Flag Note LastModifiedBy Organization Detail LastModifiedTime 06/26/1906/27/2022 CBC WITH DIFFE RENTI AL/PL ATELE T WBC 5.6 x10e3 /uL 3.4-10 .8 Not Available [facility] ([facility]) [address] [place], [address], 06/29/2022 12:36:28 06/26/1906/27/2022 CBC WITH DIFFE RENTI AL/PL ATELE T RBC 4.45 x10e6 /uL 3.77-5 .28 Not Available [facility] ([facility]) [address] [place], [address], 06/29/2022 12:36:28 06/26/19 23 06/27/2022 CBC WITH DIFFE RENTI AL/PL ATELE T hemoglobin 12.7 g/dL 11.1-1 5.9 Not Available [facility] ([facility]) [address] [place], [address], 06/29/2022 12:36:28 06/26/19 23 06/27/2022 CBC WITH DIFFE RENTI AL/PL ATELE T hematocrit 38.9 % 34.0-4 6.6 Not Available [facility] ([facility]) [address] [place], [address], 06/29/2022 12:36:28 06/26/19 23 06/27/2022 CBC WITH DIFFE RENTI AL/PL ATELE T MCV 87 fL 79-97 Not Available [facility] ([facility]) [address], [place], [address], 06/29/2022 12:36:28 06/26/19 23 06/27/2022 CBC WITH DIFFE RENTI AL/PL ATELE T MCH 28.5 pg 26.6-3 3.0 Not Available [facility] ([facility]) [address], [place], [address], 06/29/2022 12:36:28 06/26/19 23 06/27/2022 CBC WITH DIFFE RENTI AL/PL ATELE T MCHC 32.6 g/dL 31.5-3 5.7 Not Available [facility] ([facility]) [address], [place], [address], 06/29/2022 12:36:28 06/26/19 23 06/27/2022 CBC WITH DIFFE RENTI AL/PL ATELE T RDW 12.4 % 11.7-1 5.4 Not Available [facility] ([facility]) [address], [place], [address], 06/29/2022 12:36:28 06/26/19 23 06/27/2022 CBC WITH DIFFE RENTI AL/PL ATELE T platelets 291 x10e3 /uL 150-45 0 Not Available [facility] ([facility]) [address], [place], [address], 06/29/2022 12:36:28 06/26/19 23 06/27/2022 CBC WITH DIFFE RENTI AL/PL ATELE T neutrophils 40 % not estab. Not Available [facility] ([facility]) [address] [place], [address], 06/29/2022 12:36:28 06/26/19 23 06/27/2022 CBC WITH DIFFE RENTI AL/PL ATELE T lymphs 48 % not estab. Not Available [facility] ([facility]) [address], [place], [address], 06/29/2022 12:36:28 06/26/19 23 06/27/2022 CBC WITH DIFFE RENTI AL/PL ATELE T monocytes 7 % not estab. Not Available [facility] ([facility]) [address], [place], [address], 06/29/2022 12:36:28 06/26/19 23 06/27/2022 CBC WITH DIFFE RENTI AL/PL ATELE T eos 4 % not estab. Not Available [facility] ([facility]) [address], [place], [address], 06/29/2022 12:36:28 06/26/19 23 06/27/2022 CBC WITH DIFFE RENTI AL/PL ATELE T basos 1 % not estab. Not Available [facility] ([facility]) [address], [place], [address], 06/29/2022 12:36:28 06/26/19 23 06/27/2022 CBC WITH DIFFE RENTI AL/PL ATELE T immature cells CARD TAPE CONVERTER OPERATOR Not Available [facility] ([facility]) [address] [place], [address], 06/29/2022 12:36:28 06/26/19 23 06/27/2022 CBC WITH DIFFE RENTI AL/PL ATELE T neutrophils (absolute) 2.2 x10e3 /uL 1.4-7. 0 Not Available [facility] ([facility]) [address] [place], [address], 06/29/2022 12:36:28 06/26/19 23 06/27/2022 CBC WITH DIFFE RENTI AL/PL ATELE T lymphs (absolute) 2.6 x10e3 /uL 0.7-3. 1 Not Available [facility] ([facility]) [address] [place], [address], 06/29/2022 12:36:28 06/26/19 23 06/27/2022 CBC WITH DIFFE RENTI AL/PL ATELE T monocytes(ab solute) 0.4 x10e3 /uL 0.1-0. 9 Not Available [facility] ([facility]) [address], [place], [address], 06/29/2022 12:36:28 06/26/19 23 06/27/2022 CBC WITH DIFFE RENTI AL/PL ATELE T eos (absolute) 0.2 x10e3 /uL 0.0-0. 4 Not Available [facility] ([facility]) [address], [place], [address], 06/29/2022 12:36:28 06/26/19 23 06/27/2022 CBC WITH DIFFE RENTI AL/PL ATELE T baso (absolute) 0.1 x10e3 /uL 0.0-0. 2 Not Available [facility] ([facility]) [address], [place], [address], 06/29/2022 12:36:28 06/26/19 23 06/27/2022 CBC WITH DIFFE RENTI AL/PL ATELE T immature granulocytes 0 % not estab. Not Available [facility] ([facility]) [address], [place], [address], 06/29/2022 12:36:28 06/26/19 23 06/27/2022 CBC WITH DIFFE RENTI AL/PL ATELE T immature grans (abs) 0.0 x10e3 /uL 0.0-0. 1 Not Available [facility] ([facility]) [address], [place], [address], 06/29/2022 12:36:28 06/26/19 23 06/27/2022 CBC WITH DIFFE RENTI AL/PL ATELE T NRBC CARD TAPE CONVERTER OPERATOR Not Available [facility] ([facility]) [address], [place], [address], 06/29/2022 12:36:28 06/26/19 23 06/27/2022 CBC WITH DIFFE GENEVIEVE AL/MOSES Hedrick hematology comments: CARD TAPE CONVERTER OPERATOR Not Available [facility] ([facility]) [address], [place], [address], 06/29/2022 12:36:28 06/26/19 23 06/27/2022 COMP. METAB OLIC PANEL (14) glucose 156 mg/dL 70-99 above high normal Not Available [facility] ([facility]) [address], [place], [address], 06/29/2022 12:36:29 06/26/19 23 06/27/2022 COMP. METAB OLIC PANEL (14) BUN 17 mg/dL 8-27 Not Available [facility] ([facility]) [address], [place], [address], 06/29/2022 12:36:29 06/26/19 23 06/27/2022 COMP. METAB OLIC PANEL (14) creatinine 0.83 mg/dL 0.57-1 .00 Not Available [facility] ([facility]) [address], [place], [address], 06/29/2022 12:36:29 06/26/19 23 06/27/2022 COMP. METAB OLIC PANEL (14) eGFR 80 mL/mi n/1.7 3 >59 Not Available [facility] ([facility]) [address], [place], [address], 06/29/2022 12:36:29 06/26/19 23 06/27/2022 COMP. METAB OLIC PANEL (14) BUN/creatini ne ratio 20 12-28 Not Available [facility] ([facility]) [address], [place], [address], 06/29/2022 12:36:29 02/10/20 23 06/27/2022 COMP. METAB OLIC PANEL (14) sodium 141 mmol/ L 134-14 4 Not Available [facility] ([facility]) [address] [place], [address], 06/29/2022 12:36:29 06/26/19 23 06/27/2022 COMP. METAB OLIC PANEL (14) potassium 4.1 mmol/ L 3.5-5. 2 Not Available [facility] ([facility]) [address], [place], [address], 06/29/2022 12:36:29 06/26/19 23 06/27/2022 COMP. METAB OLIC PANEL (14) chloride 102 mmol/ L 96-106 Not Available [facility] ([facility]) [address], [place], [address], 06/29/2022 12:36:29 06/26/19 23 06/27/2022 COMP. METAB OLIC PANEL (14) carbon dioxide, total 25 mmol/ L 20-29 Not Available [facility] ([facility]) [address] [place], [address], 06/29/2022 12:36:29 06/26/19 23 06/27/2022 COMP. METAB OLIC PANEL (14) calcium 9.7 mg/dL 8.7-10 .3 Not Available [facility] ([facility]) [address] [place], [address], 06/29/2022 12:36:29 06/26/19 23 06/27/2022 COMP. METAB OLIC PANEL (14) protein, total 7.3 g/dL 6.0-8. 5 Not Available [facility] ([facility]) [address] [place], [address], 06/29/2022 12:36:29 06/26/19 23 06/27/2022 COMP. METAB OLIC PANEL (14) albumin 4.7 g/dL 3.8-4. 8 Not Available [facility] ([facility]) [address] [place], [address], 06/29/2022 12:36:29 06/26/19 23 06/27/2022 COMP. METAB OLIC PANEL (14) globulin, total 2.6 g/dL 1.5-4. 5 Not Available [facility] ([facility]) [address] [place], [address], 06/29/2022 12:36:29 06/26/19 23 06/27/2022 COMP. METAB OLIC PANEL (14) A/G ratio 1.8 1.2-2. 2 Not Available [facility] ([facility]) [address], [place], [address], 06/29/2022 12:36:29 06/26/19 23 06/27/2022 COMP. METAB OLIC PANEL (14) bilirubin, total 0.4 mg/dL 0.0-1. 2 Not Available [facility] ([facility]) [address] [place], [address], 06/29/2022 12:36:29 06/26/19 23 06/27/2022 COMP. METAB OLIC PANEL (14) alkaline phosphatase 86 IU/L 44-121 Not Available [facility] ([facility]) [address] [place], [address], 06/29/2022 12:36:29 06/26/19 23 06/27/2022 COMP. METAB OLIC PANEL (14) AST (SGOT) 18 IU/L 0-40 Not Available [facility] ([facility]) [address], [place], [address], 06/29/2022 12:36:29 06/26/19 23 06/27/2022 COMP. METAB OLIC PANEL (14) ALT (SGPT) 19 IU/L 0-32 Not Available [facility] ([facility]) [address] [place], [address], 06/29/2022 12:36:29 06/26/19 23 06/27/2022 LIPID PANEL cholesterol, total 179 mg/dL 100-19 9 Not Available [facility] ([facility]) [address] [place], [address], 06/29/2022 12:36:31 06/26/19 23 06/27/2022 LIPID PANEL triglyceride s 154 mg/dL 0-149 above high normal Not Available [facility] ([facility]) [address] [place], [address], 06/29/2022 12:36:31 06/26/19 23 06/27/2022 LIPID PANEL HDL cholesterol 42 mg/dL >39 Not Available [facility] ([facility]) [address] [place], [address], 06/29/2022 12:36:31 06/26/19 23 06/27/2022 LIPID PANEL VLDL cholesterol neal 27 mg/dL 5-40 Not Available [facility] ([facility]) [address] [place], [address], 06/29/2022 12:36:31 06/26/19 23 06/27/2022 LIPID PANEL LDL chol calc ([facility]) 110 mg/dL 0-99 above high normal Not Available [facility] ([facility]) [address] [place], [address], 06/29/2022 12:36:31 06/26/19 23 06/27/2022 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 Not Available [facility] ([facility]) [address] [place], [address], 06/29/2022 12:36:31 06/26/19 23 06/27/2022 HEMOG LOBIN A1C hemoglobin A1C 6.8 % 4.8-5. 6 above high normal Predi abete s: 5.7 - 6.4 Diabe unno: >6.4 Glyce glory contr ol for adult s with diabe nuno: <7.0 Not Available [facility] ([facility]) [address], [place], [address], 06/29/2022 12:36:32 06/26/19 23 06/27/2022 VITAM IN [...] Endoc rine Socie ty went on to furth er defin e vitam in D insuf ficie ncy as a level betwe en 21 and 29 ng/mL (2). 1. IOM (Inst itute of Medic ine). 2009. Dieta ry refer ence intak es for calci um and D. Giselle sow [place]: The Natio nal [facility] Press . 2. Kasey swift MF, Jabari cueto [place], Piper off-F errar i GARNER, et al. Evalu ation , treat ment, and preve ntion of vitam in D defic iency : an Endoc rine Socie ty clini neal pract ice guide line. JCEM. 2010; 96(7) :1911 -30. Not Available [facility] ([facility]) [address], [place], [address], 06/29/2022 12:36:33 06/26/19 23 06/29/2022 ANTIN UCLEA R ANTIB ODIES DIREC T GISSELLE direct POSITI VE negati ve abnormal Not Available [facility] ([facility]) [address], [place], [address], 06/29/2022 12:36:34 06/26/19 23 06/27/2022 SEDIM ENTAT ION RATE- WESTE RGREN sedimentatio n rate-westerg donita 11 mm/HR 0-40 Not Available [facility] ([facility]) [address], [place], [address], 06/29/2022 12:36:35 06/26/19 23 06/27/2022 CREAT INE KINAS E,TOT AL creatine kinase,total 51 U/L 32-182 Not Available [facility] ([facility]) [address], [place], [address], 06/29/2022 12:36:36 06/26/19 23 06/27/2022 C-NIKITA CTIVE PROTE IN, QUANT C-reactive protein, quant 1 mg/L 0-10 Not Available [facility] ([facility]) [address], [place], [address], 06/29/2022 12:36:37 09/12/19 23 09/11/2022 HbA1c (hemo globi n A1c), blood HbA1c 7.6 Not Available [facility] [address], [place], [address], 09/11/2022 11:05:41 12/19/19 23 12/19/2022 COMP. METAB OLIC PANEL (14) glucose 143 mg/dL 70-99 above high normal Not Available [facility] ([facility]) [address] [place], [address], 12/19/2022 03:36:56 12/19/19 23 12/19/2022 COMP. METAB OLIC PANEL (14) BUN 15 mg/dL 8-27 Not Available [facility] ([facility]) [address] [place], [address], 12/19/2022 03:36:56 12/19/19 23 12/19/2022 COMP. METAB OLIC PANEL (14) creatinine 0.88 mg/dL 0.57-1 .00 Not Available [facility] ([facility]) [address] [place], [address], 12/19/2022 03:36:56 12/19/19 23 12/19/2022 COMP. METAB OLIC PANEL (14) eGFR 74 mL/mi n/1.7 3 >59 Not Available [facility] ([facility]) [address], [place], [address], 12/19/2022 03:36:56 12/19/19 23 12/19/2022 COMP. METAB OLIC PANEL (14) BUN/creatini ne ratio 17 12-28 Not Available [facility] ([facility]) [address], [place], [address], 12/19/2022 03:36:56 12/19/19 23 12/19/2022 COMP. METAB OLIC PANEL (14) sodium 139 mmol/ L 134-14 4 Not Available [facility] ([facility]) [address], [place], [address], 12/19/2022 03:36:56 12/19/19 23 12/19/2022 COMP. METAB OLIC PANEL (14) potassium 4.1 mmol/ L 3.5-5. 2 Not Available [facility] ([facility]) [address], [place], [address], 12/19/2022 03:36:56 12/19/19 23 12/19/2022 COMP. METAB OLIC PANEL (14) chloride 99 mmol/ L 96-106 Not Available [facility] ([facility]) [address], [place], [address], 12/19/2022 03:36:56 12/19/19 23 12/19/2022 COMP. METAB OLIC PANEL (14) carbon dioxide, total 24 mmol/ L 20-29 Not Available [facility] ([facility]) [address], [place], [address], 12/19/2022 03:36:56 12/19/19 23 12/19/2022 COMP. METAB OLIC PANEL (14) calcium 9.8 mg/dL 8.7-10 .3 Not Available [facility] ([facility]) [address], [place], [address], 12/19/2022 03:36:56 12/19/19 23 12/19/2022 COMP. METAB OLIC PANEL (14) protein, total 7.2 g/dL 6.0-8. 5 Not Available [facility] ([facility]) [address], [place], [address], 12/19/2022 03:36:56 12/19/19 23 12/19/2022 COMP. METAB OLIC PANEL (14) albumin 4.5 g/dL 3.9-4. 9 Not Available [facility] ([facility]) [address], [place], [address], 12/19/2022 03:36:56 12/19/19 23 12/19/2022 COMP. METAB OLIC PANEL (14) globulin, total 2.7 g/dL 1.5-4. 5 Not Available [facility] ([facility]) [address], [place], [address], 12/19/2022 03:36:56 12/19/19 23 12/19/2022 COMP. METAB OLIC PANEL (14) A/G ratio 1.7 1.2-2. 2 Not Available [facility] ([facility]) [address], [place], [address], 12/19/2022 03:36:56 12/19/19 23 12/19/2022 COMP. METAB OLIC PANEL (14) bilirubin, total 0.5 mg/dL 0.0-1. 2 Not Available [facility] ([facility]) [address], [place], [address], 12/19/2022 03:36:56 12/19/19 23 12/19/2022 COMP. METAB OLIC PANEL (14) alkaline phosphatase 91 IU/L 44-121 Not Available [facility] ([facility]) [address] [place], [address], 12/19/2022 03:36:56 12/19/19 23 12/19/2022 COMP. METAB OLIC PANEL (14) AST (SGOT) 18 IU/L 0-40 Not Available [facility] ([facility]) [address] [place], [address], 12/19/2022 03:36:56 12/19/19 23 12/19/2022 COMP. METAB OLIC PANEL (14) ALT (SGPT) 16 IU/L 0-32 Not Available [facility] ([facility]) [address] [place], [address], 12/19/2022 03:36:56 12/19/19 23 12/19/2022 LIPID PANEL cholesterol, total 148 mg/dL 100-19 9 Not Available [facility] ([facility]) [address] [place], [address], 12/19/2022 03:36:58 12/19/19 23 12/19/2022 LIPID PANEL triglyceride s 176 mg/dL 0-149 above high normal Not Available [facility] ([facility]) [address] [place], [address], 12/19/2022 03:36:58 12/19/19 23 12/19/2022 LIPID PANEL HDL cholesterol 36 mg/dL >39 below low normal Not Available [facility] ([facility]) [address] [place], [address], 12/19/2022 03:36:58 12/19/19 23 12/19/2022 LIPID PANEL VLDL cholesterol neal 30 mg/dL 5-40 Not Available [facility] ([facility]) [address] [place], [address], 12/19/2022 03:36:58 12/19/19 23 12/19/2022 LIPID PANEL LDL chol calc ([facility]) 82 mg/dL 0-99 Not Available [facility] ([facility]) [address], [place], [address], 12/19/2022 03:36:58 12/19/19 23 12/19/2022 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 Not Available [facility] ([facility]) [address], [place], [address], 12/19/2022 03:36:58 12/19/19 23 12/19/2022 HEMOG LOBIN A1C hemoglobin A1C 7.2 % 4.8-5. 6 above high normal Predi abete s: 5.7 - 6.4 Diabe nuno: >6.4 Glyce glory contr ol for adult s with diabe nuno: <7.0 Not Available [facility] ([facility]) [address], [place], [address], 12/19/2022 03:37:00 05/31/19 24 06/01/2023 CBC WITH DIFFE RENTI AL/PL ATELE T WBC 7.1 x10e3 /uL 3.4-10 .8 Not Available [facility] ([facility]) [address], [place], [address], 06/01/2023 03:36:58 05/31/19 24 06/01/2023 CBC WITH DIFFE RENTI AL/PL ATELE T RBC 4.78 x10e6 /uL 3.77-5 .28 Not Available [facility] ([facility]) [address], [place], [address], 06/01/2023 03:36:58 05/31/19 24 06/01/2023 CBC WITH DIFFE RENTI AL/PL ATELE T hemoglobin 13.9 g/dL 11.1-1 5.9 Not Available [facility] ([facility]) [address], [place], [address], 06/01/2023 03:36:58 05/31/19 24 06/01/2023 CBC WITH DIFFE RENTI AL/PL ATELE T hematocrit 41.6 % 34.0-4 6.6 Not Available [facility] ([facility]) [address], [place], [address], 06/01/2023 03:36:58 05/31/19 24 06/01/2023 CBC WITH DIFFE RENTI AL/PL ATELE T MCV 87 fL 79-97 Not Available [facility] ([facility]) [address], [place], [address], 06/01/2023 03:36:58 05/31/19 24 06/01/2023 CBC WITH DIFFE RENTI AL/PL ATELE T MCH 29.1 pg 26.6-3 3.0 Not Available [facility] ([facility]) [address], [place], [address], 06/01/2023 03:36:58 05/31/19 24 06/01/2023 CBC WITH DIFFE RENTI AL/PL ATELE T MCHC 33.4 g/dL 31.5-3 5.7 Not Available [facility] ([facility]) [address], [place], [address], 06/01/2023 03:36:58 05/31/19 24 06/01/2023 CBC WITH DIFFE RENTI AL/PL ATELE T RDW 11.9 % 11.7-1 5.4 Not Available [facility] ([facility]) [address], [place], [address], 06/01/2023 03:36:58 05/31/19 24 06/01/2023 CBC WITH DIFFE RENTI AL/PL ATELE T platelets 342 x10e3 /uL 150-45 0 Not Available [facility] ([facility]) [address], [place], [address], 06/01/2023 03:36:58 05/31/19 24 06/01/2023 CBC WITH DIFFE RENTI AL/PL ATELE T neutrophils 48 % not estab. Not Available [facility] ([facility]) [address], [place], [address], 06/01/2023 03:36:58 05/31/19 24 06/01/2023 CBC WITH DIFFE RENTI AL/PL ATELE T lymphs 39 % not estab. Not Available [facility] ([facility]) [address], [place], [address], 06/01/2023 03:36:58 05/31/19 24 06/01/2023 CBC WITH DIFFE RENTI AL/PL ATELE T monocytes 6 % not estab. Not Available [facility] ([facility]) [address], [place], [address], 06/01/2023 03:36:58 05/31/19 24 06/01/2023 CBC WITH DIFFE RENTI AL/PL ATELE T eos 6 % not estab. Not Available [facility] ([facility]) [address], [place], [address], 06/01/2023 03:36:58 05/31/19 24 06/01/2023 CBC WITH DIFFE RENTI AL/PL ATELE T basos 1 % not estab. Not Available [facility] ([facility]) [address], [place], [address], 06/01/2023 03:36:58 05/31/19 24 06/01/2023 CBC WITH DIFFE RENTI AL/PL ATELE T immature cells C[employer]TER OPERATOR Not Available [facility] ([facility]) [address], [place], [address], 06/01/2023 03:36:58 05/31/19 24 06/01/2023 CBC WITH DIFFE RENTI AL/PL ATELE T neutrophils (absolute) 3.4 x10e3 /uL 1.4-7. 0 Not Available [facility] ([facility]) [address], [place], [address], 06/01/2023 03:36:58 05/31/19 24 06/01/2023 CBC WITH DIFFE RENTI AL/PL ATELE T lymphs (absolute) 2.8 x10e3 /uL 0.7-3. 1 Not Available [facility] ([facility]) [address], [place], [address], 06/01/2023 03:36:58 05/31/19 24 06/01/2023 CBC WITH DIFFE RENTI AL/PL ATELE T monocytes(ab solute) 0.5 x10e3 /uL 0.1-0. 9 Not Available [facility] ([facility]) [address], [place], [address], 06/01/2023 03:36:58 05/31/19 24 06/01/2023 CBC WITH DIFFE RENTI AL/PL ATELE T eos (absolute) 0.4 x10e3 /uL 0.0-0. 4 Not Available [facility] ([facility]) [address], [place], [address], 06/01/2023 03:36:58 05/31/19 24 06/01/2023 CBC WITH DIFFE RENTI AL/PL ATELE T baso (absolute) 0.1 x10e3 /uL 0.0-0. 2 Not Available [facility] ([facility]) [address], [place], [address], 06/01/2023 03:36:58 05/31/19 24 06/01/2023 CBC WITH DIFFE RENTI AL/PL ATELE T immature granulocytes 0 % not estab. Not Available [facility] ([facility]) [address], [place], [place], [address], 06/01/2023 03:36:58 05/31/19 24 06/01/2023 CBC WITH DIFFE RENTI AL/PL ATELE T immature grans (abs) 0.0 x10e3 /uL 0.0-0. 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 METAB OLIC PANEL (14) glucose 159 mg/dL 70-99 above high normal Not Available [facility] ([facility]) [address], [place], [address], 06/01/2023 03:36:59 05/31/19 24 06/01/2023 COMP. METAB OLIC PANEL (14) BUN 15 mg/dL 8-27 Not Available [facility] ([facility]) [address], [place], [address], 06/01/2023 03:36:59 05/31/19 24 06/01/2023 COMP. METAB OLIC PANEL (14) creatinine 0.85 mg/dL 0.57-1 .00 Not Available [facility] ([facility]) [address] [place], [address], 06/01/2023 03:36:59 05/31/19 24 06/01/2023 COMP. METAB OLIC PANEL (14) eGFR 77 mL/mi n/1.7 3 >59 Not Available [facility] ([facility]) [address], [place], [address], 06/01/2023 03:36:59 05/31/19 24 06/01/2023 COMP. METAB OLIC PANEL (14) BUN/creatini ne ratio 18 12-28 Not Available [facility] ([facility]) [address], [place], [address], 06/01/2023 03:36:59 05/31/19 24 06/01/2023 COMP. METAB OLIC PANEL (14) sodium 139 mmol/ L 134-14 4 Not Available [facility] ([facility]) [address], [place], [address], 06/01/2023 03:36:59 05/31/19 24 06/01/2023 COMP. METAB OLIC PANEL (14) potassium 5.1 mmol/ L 3.5-5. 2 Not Available [facility] ([facility]) [address], [place], [address], 06/01/2023 03:36:59 05/31/19 24 06/01/2023 COMP. METAB OLIC PANEL (14) chloride 100 mmol/ L 96-106 Not Available [facility] ([facility]) [address], [place], [address], 06/01/2023 03:36:59 05/31/19 24 06/01/2023 COMP. METAB OLIC PANEL (14) carbon dioxide, total 24 mmol/ L 20-29 Not Available [facility] ([facility]) [address], [place], [address], 06/01/2023 03:36:59 05/31/19 24 06/01/2023 COMP. METAB OLIC PANEL (14) calcium 10.2 mg/dL 8.7-10 .3 Not Available [facility] ([place] [facility]) [address], [place], [address], 06/01/2023 03:36:59 05/31/19 24 06/01/2023 COMP. METAB OLIC PANEL (14) protein, total 7.5 g/dL 6.0-8. 5 Not Available [facility] ([place] [facility]) [address], [place], [address], 06/01/2023 03:36:59 05/31/19 24 06/01/2023 COMP. METAB OLIC PANEL (14) albumin 4.7 g/dL 3.9-4. 9 Not Available [facility] ([facility]) [address], [place], [address], 06/01/2023 03:36:59 05/31/19 24 06/01/2023 COMP. METAB OLIC PANEL (14) globulin, total 2.8 g/dL 1.5-4. 5 Not Available [facility] ([facility]) [address], [place], [address], 06/01/2023 03:36:59 05/31/19 24 06/01/2023 COMP. METAB OLIC PANEL (14) A/G ratio 1.7 1.2-2. 2 Not Available [facility] ([facility]) [address], [place], [address], 06/01/2023 03:36:59 05/31/19 24 06/01/2023 COMP. METAB OLIC PANEL (14) bilirubin, total 0.4 mg/dL 0.0-1. 2 Not Available [facility] ([facility]) [address], [place], [address], 06/01/2023 03:36:59 05/31/19 24 06/01/2023 COMP. METAB OLIC PANEL (14) alkaline phosphatase 103 IU/L 44-121 Not Available [facility] ([facility]) [address], [place], [address], 06/01/2023 03:36:59 05/31/19 24 06/01/2023 COMP. METAB OLIC PANEL (14) AST (SGOT) 19 IU/L 0-40 Not Available [facility] ([facility]) [address] [place], [address], 06/01/2023 03:36:59 05/31/19 24 06/01/2023 COMP. METAB OLIC PANEL (14) ALT (SGPT) 22 IU/L 0-32 Not Available [facility] ([facility]) [address] [place], [address], 06/01/2023 03:36:59 05/31/19 24 06/01/2023 LIPID PANEL cholesterol, total 215 mg/dL 100-19 9 above high normal Not Available [facility] ([facility]) [address] [place], [address], 06/01/2023 03:37:00 05/31/19 24 06/01/2023 LIPID PANEL triglyceride s 214 mg/dL 0-149 above high normal Not Available [facility] ([facility]) [address] [place], [address], 06/01/2023 03:37:00 05/31/19 24 06/01/2023 LIPID PANEL HDL cholesterol 42 mg/dL >39 Not Available [facility] ([facility]) [address] [place], [address], 06/01/2023 03:37:00 05/31/19 24 06/01/2023 LIPID PANEL VLDL cholesterol neal 38 mg/dL 5-40 Not Available [facility] ([facility]) [address] [place], [address], 06/01/2023 03:37:00 05/31/19 24 06/01/2023 LIPID PANEL LDL chol calc ([facility]) 135 mg/dL 0-99 above high normal Not Available [facility] ([facility]) [address] [place], [address], 06/01/2023 03:37:00 05/31/19 24 06/01/2023 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 Not Available [facility] ([facility]) [address] [place], [address], 06/01/2023 03:37:00 05/31/19 24 06/01/2023 THYRO ID PANEL WITH TSH TSH 1.640 uIU/m L 0.450- 4.500 Not Available [facility] ([facility]) [address] [place], [address], 06/01/2023 03:37:01 05/31/1906/01/2023 THYRO ID PANEL WITH TSH thyroxine (T4) 8.5 ug/dL 4.5-12 .0 Not Available [facility] ([facility]) [address] [place], [address], 06/01/2023 03:37:01 05/31/19 24 06/01/2023 THYRO ID PANEL WITH TSH T3 uptake 32 % 24-39 Not Available [facility] ([facility]) [address] [place], [address], 06/01/2023 03:37:01 05/31/19 24 06/01/2023 THYRO ID PANEL WITH TSH free thyroxine index 2.7 1.2-4. 9 Not Available [facility] ([facility]) [address] [place], [address], 06/01/2023 03:37:01 05/31/19 24 06/01/2023 HEMOG LOBIN A1C hemoglobin A1C 8.0 % 4.8-5. 6 above high normal Predi abete s: 5.7 - 6.4 Diabe nuno: >6.4 Glyce glory contr ol for adult s with diabe nuno: <7.0 Not Available [facility] ([facility]) [address] [place], [address], 06/01/2023 03:37:02 06/10/19 23 06/08/2022 MAMMO , scree jose, bilat eral No observ ation record ed. [email or web address] [facility] [address], [place], [address], 06/11/2022 08:17:24 12/01/19 23 02/11/2012 colon oscop y proce dure (PROC ) No observ ation record ed. [email or web address] Not Available 18:27:19 Result Notes None recorded. Procedures Surgical History Date Name Laterality Status Provider Name and Address Organization Details Recorded Time 4 Hysterectomy completed Rebecca Isbell DAVIDA LOVE - [facility] & [place] 08/17/2022 16:34:11 Gastric Bypass completed Rebecca Isbell DAVIDA LOVE - [facility] & [place] 08/17/2022 16:32:48 Colonoscopy completed Rebecca Isbell DAVIDA LOVE - [facility] & [place] 08/17/2022 16:34:24 Imaging Results None recorded. Procedure Notes None recorded. Medical Equipment None [...] Updated DateTime 3 177.8 cm 26.5 kg/m2 47714.5 9 g 97.3 [degF] 99 % 99 % 91 /min 136 mm[Hg] 70 mm[Hg] Cassidy Coulizbet [facility] & [place] 3 10:35:55 Date Recorded Body height Body mass index (BMI) Body weight Body temperature Oxygen saturation Oxygen saturation in Arterial blood by Pulse oximetry Heart rate Systolic blood pressure Diastolic blood pressure Provider Name and Address Organization Details Last Updated DateTime 4 177.8 cm 26.8 kg/m2 96704.7 7 g 98.1 [degF] 99 % 99 % 60 /min 124 mm[Hg] 70 mm[Hg] Cassidy Adamslizbet LOVE - [facility] & [place] 4 08:50:30 Date Recorded Body height Body mass index (BMI) Body weight Body temperature Oxygen saturation Oxygen saturation in Arterial blood by Pulse oximetry Heart rate Systolic blood pressure Diastolic blood pressure Provider Name and Address Organization Details Last Updated DateTime 3 177.8 cm 26.8 kg/m2 85975.7 7 g 97.8 [degF] 98 % 98 % 87 /min 130 mm[Hg] 60 mm[Hg] Cassidy Trujillo [facility] & [place] 3 10:58:59 Date Recorded Body height Body mass index (BMI) Body weight Body temperature Oxygen saturation Oxygen saturation in Arterial blood by Pulse oximetry Heart rate Systolic blood pressure Diastolic blood pressure Provider Name and Address Organization Details Last Updated DateTime 3 177.8 cm 28 kg/m2 42298.5 1 g 97.5 [degF] 98 % 98 % 78 /min 120 mm[Hg] 80 mm[Hg] Cassidy Trujillo [facility] & [place] 3 11:20:25 Social History Question Answer Notes LastModified by [facility] Details LastModified Time Tobacco Smoking Status Never Smoker Cassdiy Trujillo [facility], [facility] & [place] 03/13/2022 10:50:07 Do You Have An Advance Directive? No [email or web address] Information not available 03/13/2022 Are You Blind Or Do You Have Difficulty Seeing? No [email or web address] Information not available 03/13/2022 What Was The Date Of Your Most Recent Tobacco Screening? 03/12/2022 [email or web address] Information not available 03/13/2022 Are You Passively Exposed To Smoke? No [email or web address] Information not available 03/13/2022 Has Tobacco Cessation Counseling Been Provided? Yes [email or web address] Information not available 07/05/2023 On What Date Was Tobacco Cessation Counseling Provided? 09/11/2022 [email or web address] Information not available 07/05/2023 Sex: Unknown Functional Status Question Answer Note LastModified by [facility] Details LastModified Time Do you use any illicit or recreational drugs? No [email or web address] Information not available 03/13/2022 What is your level of alcohol consumption? None [email or web address] Information not available 03/13/2022 Mental Status None recorded. Family History Relationship Description Onset Age of this Age Resolved Age Notes LastModified by Organization Details LastModified Time Father History of heart disorder Living [email or web address] [id number] Not available 07/2022 16:30:18 Father Diabetes mellitus [place] [id number] Not available 07/2022 16:30:25 Notes:Mother: AW Medical History Condition Response Diabetes Y Autoimmune disease Y Other Y Arthritis Y Gynecological HistoryNo gynecological history recorded. Obstetrics History GPAL:G 0 P 0 0 0 0 Immunizations Vaccine Type Date Status Note Provider Nam e and Address Organization Details Recorded Time Influenza, split virus, trivalent, PF 03/06/2016 completed Rebecca Isbell- [facility], IVAN - [facility] - [place] & [place] 11/30/2022 18:11:19 Past Encounters Encounter ID Performer Location Encounter Start Date Encounter Closed Date Diagnosis/Indication Diagnosis SNOMED-CT Code Diagnosis ICD10 Code Diagnosis Note [id number] Lan Edmonds MD [address] [place] [address] 03/13/2022 10:43:31 03/13/2022 11:05:41 Type 2 diabetes mellitus without complication 410747877 E11.9 Hyperlipidemia 18484367 E78.5 [id number] Lan Edmonds MD [address] [place] [address] 06/12/2022 10:21:59 06/12/2022 11:13:49 Type 2 diabetes mellitus without complication 219911241 E11.9 Disorder o f connective tissue 749630163 L94.9 Vitamin D deficiency 347 48838 E55.9 [id number] Lan Edmonds MD [address] [place] [address] 09/11/2022 10:53:36 09/11/2022 11:20:49 Type 2 diabetes mellitus without complication 836812530 E11.9 I am going to make any changes in her medicine currently. She probably as a bump in her A1c because of her recent steroid usage. Continue current medication s and repeat A1c in 3 months. Make changes ifit is consistent ly elevated. [id number] Lan Edmonds MD [address] [place] [address] 12/11/2022 11:14:30 12/11/2022 11:35:31 Hyperlipidemia 89844467 E78.5 Type 2 juliana betes mellitus 06186935 E11.9 [id number] Lan Edmonds MD formerly [facility] [address] [place] [address] [place] [address] 05/31/2023 09:56:48 05/31/2023 10:28:14 Fatigue 26307639 R53.83 [id number] Lan Edmonds MD formerly [facility] [address] [place] [address] [facility] [address] 07/05/2023 08:31:51 07/05/2023 09:09:41 Type 2 diabetes mellitus without complication 602780261 E11.9 Add Claire hopefully we can get [...] Walters Member ID Guarantor Name 06/03/2020 1 [place] [id number] Eliezer Bob [id number] Nilesh Rojas 07/05/2023 1 [employer] (PPO) [id number] Nilesh Rojas [id number] Nilesh Rojas 12/12/2021 1 [employer] (POS) [id number] Nilesh Rojas [id number] Nilesh Rojas Notes Date Note Type Note [...] needs vitamin-D levels today. Lan Edmonds MD [address], [place], [address], [facility] & [place] 06/12/2022 11:30:31 09/11/2022 text/html She is here [...] bit Lan Edmonds MD [address], [place], [address], [facility] & [place] 09/11/2022 11:32:50 12/11/2022 text/html she is here [...] of a Raynaud's attack. She saw a hospital administrator today and they were unsuccessful. 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 Currently not on medication for this. Lan Edmonds MD [address], [place], [address], [facility] & [place] 12/11/2022 11:57:41 07/05/2023 text/html She is here [...] She takes this intermittently. Lan Edmonds MD [address], [place], [address], [facility] & [place] 07/05/2023 11:33:45 OBGyn Episode No OBEpisode recorded.
== END 2024-11-06 23:59 | disposition home or self-care (01) ==
LOC: LAB.DROPOF 11-08 10:12
PROVIDERS: PCP Family Medicine; Visit Provider Family Medicine
DX: E11.9 Type 2 diabetes mellitus without complications (principal)
CPT/HCPCS: 80053; 80061; 83036

== ENCOUNTER 2024-11-08 09:00 | Outpatient (RCR) | payer OTHER, SELFPAY ==
--- NOTE | 2024-10-23 10:51 | HMH.RHREAS ---
Rehab Reassessment Rehab OP Re-assessment Start: 10/23/24 09:02 Freq: Status: Active Protocol: Document 10/23/24 10:26 SHOSHANA (Rec: 10/23/24 10:51 SHOSHANA [id number]) E-signed By Liv Friedman PT Lower Extremity Functional Index Activities Today, do you or would you have any difficulty at all with: a.Any of your usual A little bit of difficulty work, housework or school activities b. Your usual A little bit of difficulty hobbies, recreational or sporting activities c. Getting into or A little bit of difficulty out of the bath d. Walking between A little bit of difficulty rooms e. Putting on your A little bit of difficulty shoes or socks f. Squatting Moderate difficulty g. Lifting an object A little bit of difficulty , like a bag of groceries from the floor h. Performing light A little bit of difficulty activities around your home i. Performing heavy Quite a bit of difficulty activities around your home j. Getting into or Moderate difficulty out of a car k. Walking 2 blocks Quite a bit of difficulty l. Walking a mile Extreme difficulty or unable to perform activity m. Going up or down Moderate difficulty 10 stairs (about 1 flight of stairs) n. Standing for 1 Quite a bit of difficulty hour o. Sitting for 1 A little bit of difficulty hour p. Running on even Extreme difficulty or unable to perform activity ground q. Running on uneven Extreme difficulty or unable to perform activity ground r. Making sharp Quite a bit of difficulty turns while running fast s. Hopping Quite a bit of difficulty t. Rolling over in A little bit of difficulty bed LEFI Score Lower Extremity 38 Functional Index Score Rehab Re-assessment Subjective Subjective Pt reports she feels 75% improved since starting PT. Pt reports her edema continues to be improved and she verbalizes compliance with wear of her compression garments. Pt states she is ambulating well FWB in a tennis shoe with an AD but feels like she has to reach for furniture at times. Pt reports her foot/ankle feel stronger and stable overall but she continues to demonstrate some balance deficits when traversing uneven ground, denies falls. Pt states she has been trying to practice stair climbing at home but has to be cautious and use a step to pattern with HR. Pt reports only brief, sharp anterior foot pain that occurs at night time rated 3/10 at worst on VAS. Objective Objective Notes R ankle edema: figure 8 56cm, MTP 26cm R ankle AROM: DF 20, PF 45, Inv 25, Ev 12 R ankle MMT: 4+/5 grossly Gait: non-antalgic FWB in tennis shoe without AD Balance: FT EO firm 30 , FT EC firm surface 30 , FT EO unstable surface 30 , FT EC unstable surface 5 then self-correct LOB, tandem stance EO firm surface 9 then self-correct LOB Assessment Progress Assessment Progressing as Expected Assessment Notes Pt demonstrated improved R ankle AROM, strength, LEFS score and gait this date compared to the previous reassessment. Pt continues to demonstrate altered balance and reports difficulty traversing stairs. Overall, the pt would continue to benefit from skilled PT to further improve balance/proprioception and functional strength to decrease fall risk and assist with return to PLOF. Patient goals met ST/4 LT/10 Goals Not Met LEFS score, stairs, balance Revised Goals Add balance LTGs: 9. Perform FT EC unstable surface 30 without LOB to decrease fall risk 10. Perform tandem stance EO stable surface 30 to decrease fall risk Plan Plan Continue POC. Focus on balance/proprioception training and functional strengthening with progression as tolerated. Frequency of Therapy 2x/week Duration of therapy 2-3 more weeks Time and Billing Re-Eval Time 12 Re-Eval Billing 0 Units Charge for PT No reassessment? Charge for OT No reassessment? PHYSICIAN CERTIFICATION: I certify the specified therapy services for Nilesh Rojas are required, authorized, and reviewed every 30 days.
== END 2024-11-08 23:59 | disposition home or self-care (01) ==
LOC: PT 09:00
PROVIDERS: Visit Provider Podiatrist
DX: Z47.89 Encounter for other orthopedic aftercare (principal); Z98.890 Other specified postprocedural states
CPT/HCPCS: 97110; 97530

== ENCOUNTER 2024-11-21 07:17 | Outpatient (CLI) | payer OTHER, SELFPAY ==
--- OUTSIDE RECORDS SUMMARY | 2024-10-19 11:40 | XMS_ITS | Encounter Summary ---
Author Organization [facility] Address [address] [place] [address] Care Team Providers Care Blow Pit Helper Name Role Phone Sharon Mcguire MD Unavailable Reason for Visit * Reason Comments Rheumatoid Arthritis Encounter Details Date Type Department Care Team (Latest Contact Info) Description 10/19/2024 11:40 AM EDT Office Visit [facility] [address] [place] [address] Sharon Mcguire MD [address] [place] [address] Seronegative rheumatoid arthritis (HCC) (Primary [...] )dizziness reviewed labs done on 08/21/24 at [facility] ( showed results on phone ) - [...] weeks reviewed Ophthalmology notes:[facility] vulnerability assessment analyst: Dr Brian Stevens date of exam:07/29/24 impression:no [...] (Chronic) Overview: - raynauds, inflammatory arthritis, 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, 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, rest mariama panel negative, she has a diagnosis of MCTD( 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 ) , but repeat labs showed negative GISSELLE , FERRYBOAT CAPTAIN and mariama panel, diagnosis was changed tos [...] Overview: Medication safety questionnaire DVT:no PE: no MT:no Heart failure: no Stroke: no Shingles:no diverticulitis: [...] 4 weeks This is a moderate complexity [id number]-[id number]-[id number] visit based on reviewing outside records, reviewing [...] documented in this encounter Plan of Treatment Not on file documented as of this encounter Procedures Procedure [...] PM EDT) CRP <3.0 <8.0 mg/L [facility] 10/19/2024 12:0 2 PM EDT 10/19/2024 12:03 PM EDT Sharon Mcguire MD [facility]-CHEMISTRY ORDERABLES Final Result Performing Organization Address City/[facility]/ZIP Co de Phone Number [facility] [address] [place] [address] * SEDIMENTATION RATE AUTOMATED-QUEST (10/19/2024 12:02 PM EDT) Sed Rate 6 < OR = 30 mm/h [facility] 10/19/2024 12:0 2 PM EDT 10/19/2024 12:03 PM EDT Sharon Mcguire MD [facility]-HEMATOLOGY ORDERABLES Alivia l Result [facility] [address] [place] [address] * URIC ACID-QUEST (10/19/2024 12:02 PM EDT) Uric Acid 3.0 2.5 - 7.0 mg/dL [facility] Comment: Therapeutic target for gout patients: <6.0 mg/dL 10/19/2024 12:0 2 PM EDT 10/19/2024 12:03 PM EDT Sharon Mcguire MD [facility]-CHEMISTRY ORDERABLES Final Result Performing Organization Address [facility]/ZIP Co de Phone Number [facility] [address] [place] [address] * HEPATIC FUNCTION PANEL-QUEST (10/19/2024 12:02 PM EDT) Protein, Total 7.3 6.1 - 8.1 g/dL [...] Sharon Mcguire MD [facility]-CHEMISTRY ORDERABLES Final Result [facility] [address] [place] [address] * CREATININE-QUEST (10/19/2024 12:02 PM EDT) Creatinine 0.94 0.50 - 1.05 mg/dL [facility] EGFR 68 > OR = 60 mL/min/1.73 m2 [facility] 10/19/2024 12:0 2 PM EDT 10/19/2024 12:03 PM EDT us Sharon Mcguire MD [facility]-CHEMISTRY ORDERABLES Final Result [facility] [address] [place] [address] * (ABNORMAL) CBC WITH AUTO DIFF-QUEST (10/19/2024 12:02 PM EDT) WBC 7.7 3.8 - 10.8 Thousand/u L [facility] RBC 4.43 3.80 - 5.10 Million/uL [facility] Hemoglobin 12.6 11.7 - 15.5 g/dL [facility] Hematocrit 39.8 35.0 - 45.0 % [facility] MCV 89.8 80.0 - 100.0 [...] PM EDT 10/19/2024 12:03 PM EDT Sharon ORTIZ-HEMATOLOGY ORDERABLES Alivia l Result [facility] [address] [place] [address] documented in this encounter Visit Diagnoses Diagnosis [...] documented as of this encounter Care Teams Blow Pit Helper Relationship Specialty Start Date End Date Sharon Mcguire MD [address] [place] [address] Internal Medicine-Rheumatology 09/02/23 documented as of this encounter
--- NOTE | 2024-11-21 07:20 | XR_ITS ---
FINAL REPORT CLINICAL HISTORY: s/p right foot surgery COMPARISON: 09/21/2024 FINDINGS: RIGHT FOOT 3 views of the right foot were obtained. Once again noted is a sideplate and screws bridging the dorsal aspect of the first metatarsal phalangeal joint. There is dorsal soft tissue swelling measuring 1.6 cm in thickness. Hypertrophic changes of osteoarthritis are once again noted. There is no acute fracture or dislocation. Visualized joint spaces are normally aligned. Soft tissues are unremarkable. IMPRESSION: Postoperative changes with a sideplate and screws bridging the dorsal aspect of the first MTP joint are once again identified. Reviewed, Interpreted and Dictated by Twan Abdalla MD Transcribed by Vanessa Jung Authenticated and [facility]
--- OUTSIDE RECORDS SUMMARY | 2024-11-21 07:20 | XMS_ITS | Clinical Summary ---
Author Organization [facility] Address [address] [place] [address] Phone Care Team Providers Care Pantograph I Engraver Name Role Phone Sharon Mcguire MD Unavailable [...] Overview (09/23/2023): - raynauds, inflammatory arthritis, elevated ART THERAPIST, 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, rest mariama panel negative, she has a diagnosis of MCTD( diagnosed by her previous food writer ) , but repeat labs showed negative GISSELLE , ART THERAPIST and mariama panel, diagnosis was changed tos [...] (10/19/2024): Medication safety questionnaire DVT:no PE: no CO:no Heart failure: no Stroke: no Shingles:no diverticulitis: [...] Department Care Team Description 10/22/2024 Results Follow-Up [facility] [address] [place] [address] Sharon Mcguire MD CBC WITH AUTO DIFF-QUEST, CREATININE-QUEST, HEPATIC FUNCTION PANEL-QUEST, Additional followed-up results: 3 10/19/2024 11:40 AM EDT Office Visit [facility] [address] [place] [address] Sharon Mcguire MD Seronegative rheumatoid arthritis (HCC) (Primary Dx); Fibromyalgia; Raynaud's disease without gangrene; Other secondary osteoarthritis of first carpometacarpal joint of both hands; Other fatigue; Encounter for long-term (current) use of high-risk medication; 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, unspecified laterality 09/21/2024 1:00 PM EDT Office Visit [facility] [address] [place] [address] Sharon Mcguire MD Seronegative rheumatoid arthritis (HCC) [...] 10/19/2024 11:43 AM EDT Plan of Treatment Health Maintenance Due Date [...] 06/08/19 23, 06/08/2022, 05/02/2021, Additional history exists Influenza Vaccine (#1) 2025 03/06/2016 [facility]: eGFR 10/19/2025 10/19/2024, 12/27/2023, 09/09/2023 Colon Cancer Screening 01/18/2034 Colonoscopy 01/18/2034 01/21/2024 [...] 7:30 AM EDT Screening for colon cancer ACUTE HEPATITIS PANEL Routine 09/09/2023 11:22 AM EDT Mixed connective tissue disease Encounter for long-term (current) use of high-risk medication from Last 3 Months or Most Recently Relevant to Health Maintenance Results * URIC ACID-QUEST (10/19/2024 12:02 PM EDT) Pathologist [facility] Uric Acid 3.0 2.5 - 7.0 mg/dL [facility] Comment: Therapeutic target for gout patients: <6.0 mg/dL 10/19/2024 12:0 2 PM EDT 10/19/2024 12:03 PM EDT Sharon Mcguire MD [facility]-CHEMISTRY ORDERABLES Final Result [facility] [address] [place] [address] * SEDIMENTATION RATE AUTOMATED-QUEST (10/19/2024 12:02 PM EDT) Pathologist [facility] Sed Rate 6 < OR = 30 mm/h [facility] 10/19/2024 12:0 2 PM EDT 10/19/2024 12:03 PM EDT Sharon Mcguire MD [facility]-HEMATOLOGY ORDERABLES Alivia l Result Performing Organization Address City/[facility]/ZIP Co de Phone Number [facility] [address] [place] [address] * HEPATIC FUNCTION PANEL-QUEST (10/19/2024 12:02 PM EDT) Pathologist [facility] Protein, Total 7.3 6.1 - 8.1 g/dL [...] MD [facility]-CHEMISTRY ORDERABLES Final Result [facility] [address] [place] [address] * CREATININE-QUEST (10/19/2024 12:02 PM EDT) Creatinine 0.94 0.50 - 1.05 mg/dL [facility] EGFR 68 > OR = 60 mL/min/1.73 m2 [facility] 10/19/2024 12:0 2 PM EDT 10/19/2024 12:03 PM EDT Sharon Mcguire MD [facility]-CHEMISTRY ORDERABLES Final Result Performing Organization Address City/[facility]/ZIP Co de Phone Number [facility] [address] [place] [address] * C REACTIVE PROTEIN-QUEST (10/19/2024 12:02 PM EDT) CRP <3.0 <8.0 mg/L [facility] 10/19/2024 12:0 2 PM EDT 10/19/2024 12:03 PM EDT Sharon Mcguire MD [facility]-CHEMISTRY ORDERABLES Final Result [facility] [address] [place] [address] * (ABNORMAL) CBC WITH AUTO DIFF-QUEST (10/19/2024 12:02 PM EDT) [facility] WBC 7.7 3.8 - 10.8 Thousand/u L [...] us Sharon Mcguire MD [facility]-HEMATOLOGY ORDERABLES Alivia [email or web address] Result [facility] [address] [place] [address] * COLONOSCOPY (01/21/2024 7:30 AM EDT) Anatomical [...] ACUTE HEPATITIS PANEL (09/09/2023 11:22 AM EDT) Hep Bs Ag Non-Reacti ve Non-Reacti ve 09/09/2023 12:55 PM EDT [facility] Hep B Core IgM Non-Reacti ve Non-Reacti ve 09/09/2023 12:55 PM EDT [facility] Hep A IgM Non-Reacti ve Non-Reacti ve 09/09/2023 12:55 PM EDT [facility] Hep C Ab Non-Reacti ve Non-Reacti ve 09/09/2023 12:55 PM EDT [facility] Blood VENOUS BLOOD / Unknown Venipuncture / Unknown 09/09/2023 11:22 AM EDT 09/09/2023 11:22 AM EDT Sharon Mcguire MD CHEMISTRY ORDERABLES Final Resul t [facility] [address] [facility] , [address] [place] [phone] from Last 3 Months or Most Recently Relevant to Health Maintenance Insurance [employer] Care Teams Pantograph I Engraver Relationship Specialty Start Date End Date Sharon Mcguire MD [address] [facility] [place] [id number] Internal Medicine-Rheumatology 09/02/23
--- OUTSIDE RECORDS SUMMARY | 2024-11-21 07:20 | XMS_ITS | Data Portability ---
Author Organization [place] [facility] [place] Address [address] [place] [id number] Care Team Providers Care Preparator Name Role Phone LAN EDMONDS Primary Care Provider Assessment No assessment recorded. Plan of Treatment Reminders Order Date Submit Date Provider Last Modified By Organization Details Last Modified Time Details Appointments None recorded. Lab CMP, serum or plasma 2023 024 ALANNA Aguirre, [address], [address], [place], [address], 4 03:36:59 lipid panel, serum 2023 024 ALANNA Aguirre, [address], [address], [place], [address], 4 03:37:00 CBC w/ auto diff 2023 024 ALANNA Timothy, [address], [address], [place], [address], 4 03:36:58 thyroid panel, serum 2023 024 ALANNA Aguirre, [address], [address], [place], [address], 4 03:37:01 HbA1c (hemoglobin A1c), blood 2023 024 ALANNA Aguirre, [address], [address], [place], [address], 4 03:37:02 HbA1c (hemoglobin A1c), blood 2022 023 ALANNA [facility], [address], [address], [place], [address], 3 03:37:00 CMP, serum or plasma 2022 023 ALANNA [facility], [address], [address], [place], [address], 3 03:36:56 lipid panel, serum 2022 023 [place] [facility], [address], [address], [place], [address], 3 03:36:58 HbA1c (hemoglobin A1c), blood 2022 023 [email or web address] 5 [facility], [address], [place], [address], 3 11:50:00 CBC w/ auto diff 2022 023 [place] [facility], [address], [address], [place], [address], 3 12:36:28 ESR (erythrocyt e sedimentati on rate), blood 2022 023 [place] [facility], [address], [address], [place], [address], 3 12:36:35 C reactive protein, QN, serum or plasma 2022 023 ALANNA [facility], [address], [address], [place], [address], 3 12:36:37 CK (creatine kinase), total, serum 2022 023 [facility], [address], [address], [place], [address], 3 12:36:36 GISSELLE (antinuclea r antibodies) screen, serum 2022 023 [facility], [address], [address], [place], [address], 3 12:36:34 vitamin D, 25-hydroxy, total, serum 2022 023 [facility], [address], [address], [place], [address], 3 12:36:33 HbA1c (hemoglobin A1c), blood 2022 023 [facility], [address], [address], [place], [address], 3 12:36:32 CMP, serum or plasma 2022 023 [facility], [address], [address], [place], [address], 3 12:36:29 lipid panel, serum 2022 023 [facility], [address], [address], [place], [address], 3 12:36:31 Referral None recorded. Procedures None recorded. Surgeries None recorded. Imaging None recorded. Medication Orders Januvia 100 mg tablet 2023 024 [facility], [address], [address], 4 11:33:36 glimepiride 4 mg tablet 2022 023 [facility], [address] [place], [address], 3 11:34:11 metformin 850 mg tablet 2022 023 [facility], [address] [place], [address], 3 11:34:12 Patient TargetsNo targets recorded. Patient InstructionsNo instructions recorded. Reason for Referral None Reported. Results Created Date Observation Date Name Description Value Unit Range Abnormal Flag Note LastModifiedBy Organization Detail LastModifiedTime 06/26/1906/27/2022 CBC WITH DIFFE RENTI AL/PL ATELE T WBC 5.6 x10e3 /uL 3.4-10 .8 Not Available [facility] ([facility]) [address] [place], [address], 06/29/2022 12:36:28 06/26/1906/27/2022 CBC WITH DIFFE RENTI AL/PL ATELE T RBC 4.45 x10e6 /uL 3.77-5 .28 Not Available [facility] ([facility]) [address] [place], [address], 06/29/2022 12:36:28 06/26/19 23 06/27/2022 CBC WITH DIFFE RENTI AL/PL ATELE T hemoglobin 12.7 g/dL 11.1-1 5.9 Not Available [facility] ([facility]) [address] [place], [address], 06/29/2022 12:36:28 06/26/19 23 06/27/2022 CBC WITH DIFFE RENTI AL/PL ATELE T hematocrit 38.9 % 34.0-4 6.6 Not Available [facility] ([facility]) [address] [place], [address], 06/29/2022 12:36:28 06/26/19 23 06/27/2022 CBC WITH DIFFE RENTI AL/PL ATELE T MCV 87 fL 79-97 Not Available [facility] ([facility]) [address] [facility], [place], [address], 06/29/2022 12:36:28 06/26/19 23 06/27/2022 CBC WITH DIFFE RENTI AL/PL ATELE T MCH 28.5 pg 26.6-3 3.0 Not Available [facility] ([facility]) [address] [facility], [place], [address], 06/29/2022 12:36:28 06/26/19 23 06/27/2022 CBC WITH DIFFE RENTI AL/PL ATELE T MCHC 32.6 g/dL 31.5-3 5.7 Not Available [facility] ([facility]) [address] [facility], [place], [address], 06/29/2022 12:36:28 06/26/19 23 06/27/2022 CBC WITH DIFFE RENTI AL/PL ATELE T RDW 12.4 % 11.7-1 5.4 Not Available [facility] ([facility]) [address] [facility], [place], [address], 06/29/2022 12:36:28 06/26/19 23 06/27/2022 CBC WITH DIFFE RENTI AL/PL ATELE T platelets 291 x10e3 /uL 150-45 0 Not Available [facility] ([facility]) [address] [facility], [place], [address], 06/29/2022 12:36:28 06/26/19 23 06/27/2022 CBC WITH DIFFE RENTI AL/PL ATELE T neutrophils 40 % not estab. Not Available [facility] ([facility]) [address] [place], [address], 06/29/2022 12:36:28 06/26/19 23 06/27/2022 CBC WITH DIFFE RENTI AL/PL ATELE T lymphs 48 % not estab. Not Available [facility] ([facility]) [address] [facility], [place], [address], 06/29/2022 12:36:28 06/26/19 23 06/27/2022 CBC WITH DIFFE RENTI AL/PL ATELE T monocytes 7 % not estab. Not Available [facility] ([facility]) [address] [facility], [place], [address], 06/29/2022 12:36:28 06/26/19 23 06/27/2022 CBC WITH DIFFE RENTI AL/PL ATELE T eos 4 % not estab. Not Available [facility] ([facility]) [address] [facility], [place], [address], 06/29/2022 12:36:28 06/26/19 23 06/27/2022 CBC WITH DIFFE RENTI AL/PL ATELE T basos 1 % not estab. Not Available [facility] (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) [address] [place], [address], 06/29/2022 12:36:28 06/26/19 23 06/27/2022 CBC WITH DIFFE RENTI AL/PL ATELE T neutrophils (absolute) 2.2 x10e3 /uL 1.4-7. 0 Not Available [facility] ([facility]) [address] [place], [address], 06/29/2022 12:36:28 06/26/19 23 06/27/2022 CBC WITH DIFFE RENTI AL/PL ATELE T lymphs (absolute) 2.6 x10e3 /uL 0.7-3. 1 Not Available [facility] ([facility]) [address] [place], [address], 06/29/2022 12:36:28 06/26/19 23 06/27/2022 CBC WITH DIFFE RENTI AL/PL ATELE T monocytes(ab solute) 0.4 x10e3 /uL 0.1-0. 9 Not Available [facility] ([facility]) [address] [facility], [place], [address], 06/29/2022 12:36:28 06/26/19 23 06/27/2022 CBC WITH DIFFE RENTI AL/PL ATELE T eos (absolute) 0.2 x10e3 /uL 0.0-0. 4 Not Available [facility] ([facility]) [address] [facility], [place], [address], 06/29/2022 12:36:28 06/26/19 23 06/27/2022 CBC WITH DIFFE RENTI AL/PL ATELE T baso (absolute) 0.1 x10e3 /uL 0.0-0. 2 Not Available [facility] ([facility]) [address] [facility], [place], [address], 06/29/2022 12:36:28 06/26/19 23 06/27/2022 CBC WITH DIFFE RENTI AL/PL ATELE T immature granulocytes 0 % not estab. Not Available [facility] ([facility]) [address] [facility], [place], [address], 06/29/2022 12:36:28 06/26/19 23 06/27/2022 CBC WITH DIFFE RENTI AL/PL ATELE T immature grans (abs) 0.0 x10e3 /uL 0.0-0. 1 Not Available [facility] ([facility]) [address] [facility], [place], [address], 06/29/2022 12:36:28 06/26/19 23 06/27/2022 CBC WITH DIFFE RENTI AL/PL ATELE T NRBC [employer] Not Available [facility] ([facility]) [address] [facility], [place], [address], 06/29/2022 12:36:28 06/26/19 23 06/27/2022 CBC WITH DIFFE GENEVIEVE AL/MOSES Hedrick hematology comments: [employer] Not Available [facility] ([facility]) [address] [facility], [place], [address], 06/29/2022 12:36:28 06/26/19 23 06/27/2022 COMP. METAB OLIC PANEL (14) glucose 156 mg/dL 70-99 above high normal Not Available [facility] ([facility]) [address] [facility], [place], [address], 06/29/2022 12:36:29 06/26/19 23 06/27/2022 COMP. METAB OLIC PANEL (14) BUN 17 mg/dL 8-27 Not Available [facility] ([facility]) [address] [facility], [place], [address], 06/29/2022 12:36:29 06/26/19 23 06/27/2022 COMP. METAB OLIC PANEL (14) creatinine 0.83 mg/dL 0.57-1 .00 Not Available [facility] ([facility]) [address] [facility], [place], [address], 06/29/2022 12:36:29 06/26/19 23 06/27/2022 COMP. METAB OLIC PANEL (14) eGFR 80 mL/mi n/1.7 3 >59 Not Available [facility] ([facility]) [address] [facility], [place], [address], 06/29/2022 12:36:29 06/26/19 23 06/27/2022 COMP. METAB OLIC PANEL (14) BUN/creatini ne ratio 20 12-28 Not Available [facility] ([facility]) [address] [facility], [place], [address], 06/29/2022 12:36:29 02/10/20 23 06/27/2022 COMP. METAB OLIC PANEL (14) sodium 141 mmol/ L 134-14 4 Not Available [facility] ([facility]) [address] [facility] [place], [address], 06/29/2022 12:36:29 06/26/19 23 06/27/2022 COMP. METAB OLIC PANEL (14) potassium 4.1 mmol/ L 3.5-5. 2 Not Available [facility] ([facility]) [address] [facility], [place], [address], 06/29/2022 12:36:29 06/26/19 23 06/27/2022 COMP. METAB OLIC PANEL (14) chloride 102 mmol/ L 96-106 Not Available [facility] ([facility]) [address] [facility], [place], [address], 06/29/2022 12:36:29 06/26/19 23 06/27/2022 COMP. METAB OLIC PANEL (14) carbon dioxide, total 25 mmol/ L 20-29 Not Available [facility] ([facility]) [address] [place], [address], 06/29/2022 12:36:29 06/26/19 23 06/27/2022 COMP. METAB OLIC PANEL (14) calcium 9.7 mg/dL 8.7-10 .3 Not Available [facility] ([facility]) [address] [place], [address], 06/29/2022 12:36:29 06/26/19 23 06/27/2022 COMP. METAB OLIC PANEL (14) protein, total 7.3 g/dL 6.0-8. 5 Not Available [facility] ([facility]) [address] [place], [address], 06/29/2022 12:36:29 06/26/19 23 06/27/2022 COMP. METAB OLIC PANEL (14) albumin 4.7 g/dL 3.8-4. 8 Not Available [facility] ([facility]) [address] [place], [address], 06/29/2022 12:36:29 06/26/19 23 06/27/2022 COMP. METAB OLIC PANEL (14) globulin, total 2.6 g/dL 1.5-4. 5 Not Available [facility] ([facility]) [address] [place], [address], 06/29/2022 12:36:29 06/26/19 23 06/27/2022 COMP. METAB OLIC PANEL (14) A/G ratio 1.8 1.2-2. 2 Not Available [facility] ([facility]) [address], [place], [address], 06/29/2022 12:36:29 06/26/19 23 06/27/2022 COMP. METAB OLIC PANEL (14) bilirubin, total 0.4 mg/dL 0.0-1. 2 Not Available [facility] ([facility] [address] [facility] [place], [address], 06/29/2022 12:36:29 06/26/19 23 06/27/2022 COMP. METAB OLIC PANEL (14) alkaline phosphatase 86 IU/L 44-121 Not Available [facility]) [address] [facility] [place], [address], 06/29/2022 12:36:29 06/26/19 23 06/27/2022 COMP. METAB OLIC PANEL (14) AST (SGOT) 18 IU/L 0-40 Not Available [facility] ([facility]) [address] [facility], [place], [address], 06/29/2022 12:36:29 06/26/19 23 06/27/2022 COMP. METAB OLIC PANEL (14) ALT (SGPT) 19 IU/L 0-32 Not Available [facility] ([facility]) [address] [place], [address], 06/29/2022 12:36:29 06/26/19 23 06/27/2022 LIPID PANEL cholesterol, total 179 mg/dL 100-19 9 Not Available [facility] ([facility]) [address] [place], [address], 06/29/2022 12:36:31 06/26/19 23 06/27/2022 LIPID PANEL triglyceride s 154 mg/dL 0-149 above high normal Not Available [facility] ([facility]) [address] [facility] [place], [address], 06/29/2022 12:36:31 06/26/19 23 06/27/2022 LIPID PANEL HDL cholesterol 42 mg/dL >39 Not Available [facility] ([facility]) [address] [facility] [place], [address], 06/29/2022 12:36:31 06/26/19 23 06/27/2022 LIPID PANEL VLDL cholesterol neal 27 mg/dL 5-40 Not Available [facility] ([facility]) [address] [facility] [place], [address], 06/29/2022 12:36:31 06/26/19 23 06/27/2022 LIPID PANEL LDL chol calc ([facility]) 110 mg/dL 0-99 above high normal Not Available [facility] (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) [address] [facility] [place], [address], 06/29/2022 12:36:31 06/26/19 23 06/27/2022 HEMOG LOBIN A1C hemoglobin A1C 6.8 % 4.8-5. 6 above high normal Predi abete s: 5.7 - 6.4 Diabe nuno: >6.4 Glyce glory contr ol for adult s with diabe nuno: <7.0 Not Available [facility] ([facility]) [address] [facility], [place], [address], 06/29/2022 12:36:32 06/26/19 23 06/27/2022 VITAM IN [...] Giselle sow [place]: The Natio nal [facility] Press . 2. Kasey swift [place], Jabari cueto [place], Piper off-F errar i GARNER, et al. Evalu ation , treat ment, and preve ntion of vitam in D defic iency : an Endoc rine Socie ty clini neal pract ice guide line. JCEM. 2010; 96(7) :1911 -30. Not Available [facility] ([facility]) [address] [facility], [place], [address], 06/29/2022 12:36:33 06/26/19 23 06/29/2022 ANTIN UCLEA R ANTIB ODIES DIREC T GISSELLE direct POSITI VE negati ve abnormal Not Available [facility] ([facility]) [address] [facility], [place], [address], 06/29/2022 12:36:34 06/26/19 23 06/27/2022 SEDIM ENTAT ION RATE- WESTE RGREN sedimentatio n rate-westerg donita 11 mm/HR 0-40 Not Available [facility] ([facility]) [address] [facility], [place], [address], 06/29/2022 12:36:35 06/26/19 23 06/27/2022 CREAT INE KINAS E,TOT AL creatine kinase,total 51 U/L 32-182 Not Available [facility] ([facility]) [address] [facility], [place], [address], 06/29/2022 12:36:36 06/26/19 23 06/27/2022 C-NIKITA CTIVE PROTE IN, QUANT C-reactive protein, quant 1 mg/L 0-10 Not Available [facility] ([facility]) [address] [facility], [place], [address], 06/29/2022 12:36:37 09/12/19 23 09/11/2022 HbA1c (hemo globi n A1c), blood HbA1c 7.6 Not Available [facility] [address], [place], [address], 09/11/2022 11:05:41 12/19/19 23 12/19/2022 COMP. METAB OLIC PANEL (14) glucose 143 mg/dL 70-99 above high normal Not Available [facility] ([facility]) [address] [place], [address], 12/19/2022 03:36:56 12/19/19 23 12/19/2022 COMP. METAB OLIC PANEL (14) BUN 15 mg/dL 8-27 Not Available [facility] ([facility]) [address] [place], [address], 12/19/2022 03:36:56 12/19/19 23 12/19/2022 COMP. METAB OLIC PANEL (14) creatinine 0.88 mg/dL 0.57-1 .00 Not Available [facility] ([facility]) [address] [place], [address], 12/19/2022 03:36:56 12/19/19 23 12/19/2022 COMP. METAB OLIC PANEL (14) eGFR 74 mL/mi n/1.7 3 >59 Not Available [facility] ([facility]) [address], [place], [address], 12/19/2022 03:36:56 12/19/19 23 12/19/2022 COMP. METAB OLIC PANEL (14) BUN/creatini ne ratio 17 12-28 Not Available [facility] ([facility]) [address] [facility], [place], [address], 12/19/2022 03:36:56 12/19/19 23 12/19/2022 COMP. METAB OLIC PANEL (14) sodium 139 mmol/ L 134-14 4 Not Available [facility] ([facility]) [address] [facility], [place], [address], 12/19/2022 03:36:56 12/19/19 23 12/19/2022 COMP. METAB OLIC PANEL (14) potassium 4.1 mmol/ L 3.5-5. 2 Not Available [facility] ([facility]) [address] [facility], [place], [address], 12/19/2022 03:36:56 12/19/19 23 12/19/2022 COMP. METAB OLIC PANEL (14) chloride 99 mmol/ L 96-106 Not Available [facility] ([facility]) [address] [facility], [place], [address], 12/19/2022 03:36:56 12/19/19 23 12/19/2022 COMP. METAB OLIC PANEL (14) carbon dioxide, total 24 mmol/ L 20-29 Not Available [facility] ([facility]) [address] [facility], [place], [address], 12/19/2022 03:36:56 12/19/19 23 12/19/2022 COMP. METAB OLIC PANEL (14) calcium 9.8 mg/dL 8.7-10 .3 Not Available [facility] ([facility]) [address] [facility], [place], [address], 12/19/2022 03:36:56 12/19/19 23 12/19/2022 COMP. METAB OLIC PANEL (14) protein, total 7.2 g/dL 6.0-8. 5 Not Available [facility] ([facility]) [address] [facility], [place], [address], 12/19/2022 03:36:56 12/19/19 23 12/19/2022 COMP. METAB OLIC PANEL (14) albumin 4.5 g/dL 3.9-4. 9 Not Available [facility] ([facility]) [address] [facility], [place], [address], 12/19/2022 03:36:56 12/19/19 23 12/19/2022 COMP. METAB OLIC PANEL (14) globulin, total 2.7 g/dL 1.5-4. 5 Not Available [facility] ([facility]) [address] [facility], [place], [address], 12/19/2022 03:36:56 12/19/19 23 12/19/2022 COMP. METAB OLIC PANEL (14) A/G ratio 1.7 1.2-2. 2 Not Available [facility] ([facility]) [address] [facility], [place], [address], 12/19/2022 03:36:56 12/19/19 23 12/19/2022 COMP. METAB OLIC PANEL (14) bilirubin, total 0.5 mg/dL 0.0-1. 2 Not Available [facility] ([facility]) [address] [facility], [place], [address], 12/19/2022 03:36:56 12/19/19 23 12/19/2022 COMP. METAB OLIC PANEL (14) alkaline phosphatase 91 IU/L 44-121 Not Available [facility]) [address] [facility] [place], [address], 12/19/2022 03:36:56 12/19/19 23 12/19/2022 COMP. METAB OLIC PANEL (14) AST (SGOT) 18 IU/L 0-40 Not Available [facility] ([facility]) [address] [facility] [place], [address], 12/19/2022 03:36:56 12/19/19 23 12/19/2022 COMP. METAB OLIC PANEL (14) ALT (SGPT) 16 IU/L 0-32 Not Available [facility] ([facility]) [address] [facility] [place], [address], 12/19/2022 03:36:56 12/19/19 23 12/19/2022 LIPID PANEL cholesterol, total 148 mg/dL 100-19 9 Not Available [facility] ([facility]) [address] [facility] [place], [address], 12/19/2022 03:36:58 12/19/19 23 12/19/2022 LIPID PANEL triglyceride s 176 mg/dL 0-149 above high normal Not Available [facility] ([facility]) [address] [facility] [place], [address], 12/19/2022 03:36:58 12/19/19 23 12/19/2022 LIPID PANEL HDL cholesterol 36 mg/dL >39 below low normal Not Available [facility] ([facility]) [address] [facility] [place], [address], 12/19/2022 03:36:58 12/19/19 23 12/19/2022 LIPID PANEL VLDL cholesterol neal 30 mg/dL 5-40 Not Available [facility] ([facility]) [address] [place], [address], 12/19/2022 03:36:58 12/19/19 23 12/19/2022 LIPID PANEL LDL chol calc ([facility]) 82 mg/dL 0-99 Not Available 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) [address] [facility], [place], [address], 12/19/2022 03:36:58 12/19/19 23 12/19/2022 HEMOG LOBIN A1C hemoglobin A1C 7.2 % 4.8-5. 6 above high normal Predi abete s: 5.7 - 6.4 Diabe nuno: >6.4 Glyce glory contr ol for adult s with diabe nuno: <7.0 Not Available [facility] ([facility]) [address] [facility], [place], [address], 12/19/2022 03:37:00 05/31/19 24 06/01/2023 CBC WITH DIFFE RENTI AL/PL ATELE T WBC 7.1 x10e3 /uL 3.4-10 .8 Not Available [facility] ([facility]) [address] [facility], [place], [address], 06/01/2023 03:36:58 05/31/19 24 06/01/2023 CBC WITH DIFFE RENTI AL/PL ATELE T RBC 4.78 x10e6 /uL 3.77-5 .28 Not Available [facility] ([facility]) [address] [facility], [place], [address], 06/01/2023 03:36:58 05/31/19 24 06/01/2023 CBC WITH DIFFE RENTI AL/PL ATELE T hemoglobin 13.9 g/dL 11.1-1 5.9 Not Available [facility] ([facility]) [address] [facility], [place], [address], 06/01/2023 03:36:58 05/31/19 24 06/01/2023 CBC WITH DIFFE RENTI AL/PL ATELE T hematocrit 41.6 % 34.0-4 6.6 Not Available [facility] ([facility]) [address] [facility], [place], [address], 06/01/2023 03:36:58 05/31/19 24 06/01/2023 CBC WITH DIFFE RENTI AL/PL ATELE T MCV 87 fL 79-97 Not Available [facility] ([facility]) [address] [facility], [place], [address], 06/01/2023 03:36:58 05/31/19 24 06/01/2023 CBC WITH DIFFE RENTI AL/PL ATELE T MCH 29.1 pg 26.6-3 3.0 Not Available [facility] ([facility]) [address] [facility], [place], [address], 06/01/2023 03:36:58 05/31/19 24 06/01/2023 CBC WITH DIFFE RENTI AL/PL ATELE T MCHC 33.4 g/dL 31.5-3 5.7 Not Available [facility] ([facility]) [address] [facility], [place], [address], 06/01/2023 03:36:58 05/31/19 24 06/01/2023 CBC WITH DIFFE RENTI AL/PL ATELE T RDW 11.9 % 11.7-1 5.4 Not Available [facility] ([facility]) [address] [facility], [place], [address], 06/01/2023 03:36:58 05/31/19 24 06/01/2023 CBC WITH DIFFE RENTI AL/PL ATELE T platelets 342 x10e3 /uL 150-45 0 Not Available [facility] ([facility]) [address] [facility], [place], [address], 06/01/2023 03:36:58 05/31/19 24 06/01/2023 CBC WITH DIFFE RENTI AL/PL ATELE T neutrophils 48 % not estab. Not Available [facility] ([facility]) [address] [facility], [place], [address], 06/01/2023 03:36:58 05/31/19 24 06/01/2023 CBC WITH DIFFE RENTI AL/PL ATELE T lymphs 39 % not estab. Not Available [facility] ([facility]) [address] [facility], [place], [address], 06/01/2023 03:36:58 05/31/19 24 06/01/2023 CBC WITH DIFFE RENTI AL/PL ATELE T monocytes 6 % not estab. Not Available [facility] ([facility]) [address] [facility], [place], [address], 06/01/2023 03:36:58 05/31/19 24 06/01/2023 CBC WITH DIFFE RENTI AL/PL ATELE T eos 6 % not estab. Not Available [facility] ([facility]) [address] [facility], [place], [address], 06/01/2023 03:36:58 05/31/19 24 06/01/2023 CBC WITH DIFFE RENTI AL/PL ATELE T basos 1 % not estab. Not Available [facility] (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 [address] [place] [facility], [place], [address], 06/01/2023 03:36:58 05/31/19 24 06/01/2023 CBC WITH DIFFE RENTI AL/PL ATELE T neutrophils (absolute) 3.4 x10e3 /uL 1.4-7. 0 Not Available [facility] ([facility]) [address] [facility], [place], [address], 06/01/2023 03:36:58 05/31/19 24 06/01/2023 CBC WITH DIFFE RENTI AL/PL ATELE T lymphs (absolute) 2.8 x10e3 /uL 0.7-3. 1 Not Available [facility] ([facility]) [address] [facility], [place], [address], 06/01/2023 03:36:58 05/31/19 24 06/01/2023 CBC WITH DIFFE RENTI AL/PL ATELE T monocytes(ab solute) 0.5 x10e3 /uL 0.1-0. 9 Not Available [facility] ([facility]) [address] [facility], [place], [address], 06/01/2023 03:36:58 05/31/19 24 06/01/2023 CBC WITH DIFFE RENTI AL/PL ATELE T eos (absolute) 0.4 x10e3 /uL 0.0-0. 4 Not Available [facility] ([facility]) [address] [facility], [place], [address], 06/01/2023 03:36:58 05/31/19 24 06/01/2023 CBC WITH DIFFE RENTI AL/PL ATELE T baso (absolute) 0.1 x10e3 /uL 0.0-0. 2 Not Available [facility] ([facility]) [address] [facility], [place], [address], 06/01/2023 03:36:58 05/31/19 24 06/01/2023 CBC WITH DIFFE RENTI AL/PL ATELE T immature granulocytes 0 % not estab. Not Available [facility] ([facility]) [address] [facility], [place], [address], 06/01/2023 03:36:58 05/31/19 24 06/01/2023 CBC WITH DIFFE RENTI AL/PL ATELE T immature grans (abs) 0.0 x10e3 /uL 0.0-0. 1 Not Available [facility] (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) [address] [facility], [place], [address], 06/01/2023 03:36:58 05/31/19 24 06/01/2023 CBC WITH DIFFE RENTI AL/PL ATELE T hematology comments: MANAGER QUALITY SYSTEMS Not Available [facility] ([facility]) [address] [facility], [place], [address], 06/01/2023 03:36:58 05/31/19 24 06/01/2023 COMP. METAB OLIC PANEL (14) glucose 159 mg/dL 70-99 above high normal Not Available [facility] ([facility]) [address] [facility], [place], [address], 06/01/2023 03:36:59 05/31/19 24 06/01/2023 COMP. METAB OLIC PANEL (14) BUN 15 mg/dL 8-27 Not Available [facility] ([facility]) [address] [facility], [place], [address], 06/01/2023 03:36:59 05/31/19 24 06/01/2023 COMP. METAB OLIC PANEL (14) creatinine 0.85 mg/dL 0.57-1 .00 Not Available [facility] ([facility]) [address] [place], [address], 06/01/2023 03:36:59 05/31/19 24 06/01/2023 COMP. METAB OLIC PANEL (14) eGFR 77 mL/mi n/1.7 3 >59 Not Available [facility] ([facility]) [address] [facility], [place], [address], 06/01/2023 03:36:59 05/31/19 24 06/01/2023 COMP. METAB OLIC PANEL (14) BUN/creatini ne ratio 18 12-28 Not Available [facility] ([facility]) [address] [facility], [place], [address], 06/01/2023 03:36:59 05/31/19 24 06/01/2023 COMP. METAB OLIC PANEL (14) sodium 139 mmol/ L 134-14 4 Not Available [facility] ([facility]) [address] [facility], [place], [address], 06/01/2023 03:36:59 05/31/19 24 06/01/2023 COMP. METAB OLIC PANEL (14) potassium 5.1 mmol/ L 3.5-5. 2 Not Available [facility] ([facility]) [address] [facility], [place], [address], 06/01/2023 03:36:59 05/31/19 24 06/01/2023 COMP. METAB OLIC PANEL (14) chloride 100 mmol/ L 96-106 Not Available [facility] ([facility]) [address] [facility], [place], [address], 06/01/2023 03:36:59 05/31/19 24 06/01/2023 COMP. METAB OLIC PANEL (14) carbon dioxide, total 24 mmol/ L 20-29 Not Available [facility] ([facility]) [address] [facility], [place], [address], 06/01/2023 03:36:59 05/31/19 24 06/01/2023 COMP. METAB OLIC PANEL (14) calcium 10.2 mg/dL 8.7-10 .3 Not Available [facility] ([place] [facility]) [address] [facility], [place], [address], 06/01/2023 03:36:59 05/31/19 24 06/01/2023 COMP. METAB OLIC PANEL (14) protein, total 7.5 g/dL 6.0-8. 5 Not Available [facility] ([place] [facility]) [address], [place], [address], 06/01/2023 03:36:59 05/31/19 24 06/01/2023 COMP. METAB OLIC PANEL (14) albumin 4.7 g/dL 3.9-4. 9 Not Available [facility] ([facility]) [address], [place], [address], 06/01/2023 03:36:59 05/31/19 24 06/01/2023 COMP. METAB OLIC PANEL (14) globulin, total 2.8 g/dL 1.5-4. 5 Not Available [facility] ([facility]) [address], [place], [address], 06/01/2023 03:36:59 05/31/19 24 06/01/2023 COMP. METAB OLIC PANEL (14) A/G ratio 1.7 1.2-2. 2 Not Available [facility] ([facility]) [address], [place], [address], 06/01/2023 03:36:59 05/31/19 24 06/01/2023 COMP. METAB OLIC PANEL (14) bilirubin, total 0.4 mg/dL 0.0-1. 2 Not Available [facility] ([facility]) [address], [place], [address], 06/01/2023 03:36:59 05/31/19 24 06/01/2023 COMP. METAB OLIC PANEL (14) alkaline phosphatase 103 IU/L 44-121 Not Available [facility] ([facility]) [address], [place], [address], 06/01/2023 03:36:59 05/31/19 24 06/01/2023 COMP. METAB OLIC PANEL (14) AST (SGOT) 19 IU/L 0-40 Not Available [facility] ([facility]) [address] [facility] [place], [address], 06/01/2023 03:36:59 05/31/19 24 06/01/2023 COMP. METAB OLIC PANEL (14) ALT (SGPT) 22 IU/L 0-32 Not Available [facility] ([facility]) [address] [facility] [place], [address], 06/01/2023 03:36:59 05/31/19 24 06/01/2023 LIPID PANEL cholesterol, total 215 mg/dL 100-19 9 above high normal Not Available [facility] ([facility]) [address] [facility] [place], [address], 06/01/2023 03:37:00 05/31/19 24 06/01/2023 LIPID PANEL triglyceride s 214 mg/dL 0-149 above high normal Not Available [facility] ([facility]) [address] [facility] [place], [address], 06/01/2023 03:37:00 05/31/19 24 06/01/2023 LIPID PANEL HDL cholesterol 42 mg/dL >39 Not Available [facility] ([facility]) [address] [facility] [place], [address], 06/01/2023 03:37:00 05/31/19 24 06/01/2023 LIPID PANEL VLDL cholesterol neal 38 mg/dL 5-40 Not Available [facility] ([facility]) [address] [facility] [place], [address], 06/01/2023 03:37:00 05/31/19 24 06/01/2023 LIPID PANEL LDL chol calc ([facility]) 135 mg/dL 0-99 above high normal Not Available [facility] ([facility]) [address] [facility] [place], [address], 06/01/2023 03:37:00 05/31/19 24 06/01/2023 LIPID PANEL comment: MANAGER QUALITY SYSTEMS Not Available [facility] ([facility]) [address] [place], [address], 06/01/2023 03:37:00 05/31/19 24 06/01/2023 THYRO ID PANEL WITH TSH TSH 1.640 uIU/m L 0.450- 4.500 Not Available [facility] ([facility]) [address] [facility] [place], [address], 06/01/2023 03:37:01 05/31/1906/01/2023 THYRO ID PANEL WITH TSH thyroxine (T4) 8.5 ug/dL 4.5-12 .0 Not Available [facility] ([facility]) [address] [facility] [place], [address], 06/01/2023 03:37:01 05/31/19 24 06/01/2023 THYRO ID PANEL WITH TSH T3 uptake 32 % 24-39 Not Available [facility] ([facility]) [address] [facility] [place], [address], 06/01/2023 03:37:01 05/31/19 24 06/01/2023 THYRO ID PANEL WITH TSH free thyroxine index 2.7 1.2-4. 9 Not Available [facility] ([facility]) [address] [facility] [place], [address], 06/01/2023 03:37:01 05/31/19 24 06/01/2023 HEMOG LOBIN A1C hemoglobin A1C 8.0 % 4.8-5. 6 above high normal Predi abete s: 5.7 - 6.4 Diabe nuno: >6.4 Glyce glory contr ol for adult s with diabe nuno: <7.0 Not Available [facility] ([facility]) [address] [facility] [place], [address], 06/01/2023 03:37:02 06/10/19 23 06/08/2022 MAMMO , scree jose, bilat eral No observ ation record ed. [email or web address] [facility] [address] [facility], [place], [address], 06/11/2022 08:17:24 12/01/19 23 02/11/2012 colon oscop y proce dure (PROC ) No observ ation record ed. [email or web address] Not Available 18:27:19 Result Notes None recorded. Procedures Surgical History Date Name Laterality Status Provider Name and Address Organization Details Recorded Time 4 Hysterectomy completed Rebecca Isbell DAVIDA LOVE - [facility] & [place] 08/17/2022 16:34:11 Gastric Bypass completed Rebecca Isbell DAVIDA LOVE - [facility] & [place] 08/17/2022 16:32:48 Colonoscopy completed Rebecca Isbell DAVIDA LOVE - [facility] & [place] 08/17/2022 16:34:24 Imaging Results None recorded. Procedure [...] blood by Pulse oximetry Heart rate Systolic And Diastolic Provider Name and Address Organization Details Last Updated DateTime 3 177.8 cm 26.5 kg/m2 54914.5 9 g 97.3 [degF] 99 % 99 % 91 /min 136/70 mm[Hg] Cassidy Cassandra [facility] & [place] 3 10:35:55 Date Recorded Body height Body mass index (BMI) Body weight Body temperature Oxygen saturation Oxygen saturation in Arterial blood by Pulse oximetry Heart rate Systolic And Diastolic Provider Name and Address Organization Details Last Updated DateTime 4 177.8 cm 26.8 kg/m2 79076.7 7 g 98.1 [degF] 99 % 99 % 60 /min 124/70 mm[Hg] [facility] & [place] 4 08:50:30 Date Recorded Body height Body mass index (BMI) Body weight Body temperature Oxygen saturation Oxygen saturation in Arterial blood by Pulse oximetry Heart rate Systolic And Diastolic Provider Name and Address Organization Details Last Updated DateTime 3 177.8 cm 26.8 kg/m2 25193.7 7 g 97.8 [degF] 98 % 98 % 87 /min 130/60 mm[Hg] Cassidy LOVE [facility] & [place] 3 10:58:59 Date Recorded Body height Body mass index (BMI) Body weight Body temperature Oxygen saturation Oxygen saturation in Arterial blood by Pulse oximetry Heart rate Systolic And Diastolic Provider Name and Address Organization Details Last Updated DateTime 3 177.8 cm 28 kg/m2 79515.5 1 g 97.5 [degF] 98 % 98 % 78 /min 120/80 mm[Hg] Cassidy LOVE [facility] & [place] 3 11:20:25 Social History Question Answer Notes LastModified by [email or web address] ion Details LastModified Time Tobacco Smoking Status Never Smoker Cassidy Trujillo [facility] & [place] 03/13/2022 10:50:07 Do You Have An Advance Directive? No Information not available 03/13/2022 Are You Blind Or Do You Have Difficulty Seeing? No [email or web address] Information not available 03/13/2022 What Was The Date Of Your Most Recent Tobacco Screening? 03/12/2022 [email or web address] Information not available 03/13/2022 Are You Passively Exposed To Smoke? No [email or web address] Information not available 03/13/2022 Has Tobacco Cessation Counseling Been Provided? Yes [email or web address] Information not available 07/05/2023 On What Date Was Tobacco Cessation Counseling Provided? 09/11/2022 [email or web address] Information not available 07/05/2023 Sex: Unknown Functional Status Question Answer Note LastModified by Organizat ion Details LastModified Time Do you use any illicit or recreational drugs? No [email or web address] Information not available 03/13/2022 What is your level of alcohol consumption? None [email or web address] Information not available 03/13/2022 Mental Status None recorded. Family History Relationship Description Onset Age of this Age Resolved Age Notes LastModified by Organization Details LastModified Time Father History of heart disorder Living [email or web address] Not available 07/2022 16:30:18 Father Diabetes mellitus [email or web address] Not available 07/2022 16:30:25 Notes:Mother: AW Medical History Condition Response Diabetes Y Autoimmune disease Y Other Y Arthritis Y Gynecological HistoryNo gynecological history recorded. Obstetrics History GPAL:G 0 P 0 0 0 0 Immunizations Vaccine Type Date Status Note Provider Nam e and Address Organization Details Recorded Time Influenza, split virus, trivalent, PF 03/06/2016 completed Rebecca Isbell- [facility], IVAN - [place] - [place] & [place] 11/30/2022 18:11:19 Past Encounters Encounter ID Performer Location Encounter Start Date Encounter Closed Date Diagnosis/Indication Diagnosis SNOMED-CT Code Diagnosis ICD10 Code Diagnosis Note [id number] Lan Edmonds MD [address] [place] [address] 03/13/2022 10:43:31 03/13/2022 11:05:41 Type 2 diabetes mellitus without complication 432000216 E11.9 Hyperlipidemia 09962293 E78.5 [id number] Lan Edmonds MD [address] [place] [address] 06/12/2022 10:21:59 06/12/2022 11:13:49 Type 2 diabetes mellitus without complication 608452401 E11.9 Disorder o f connective tissue 080140149 L94.9 Vitamin D deficiency 347 44375 E55.9 [id number] Lan Edmonds MD [address] [place] [address] 09/11/2022 10:53:36 09/11/2022 11:20:49 Type 2 diabetes mellitus without complication 138538944 E11.9 I am going to make any changes in her medicine currently. She probably as a bump in her A1c because of her recent steroid usage. Continue current medication s and repeat A1c in 3 months. Make changes ifit is consistent ly elevated. [id number] Lan Edmonds MD [address] [place] [address] 12/11/2022 11:14:30 12/11/2022 11:35:31 Hyperlipidemia 63701651 E78.5 Type 2 juliana betes mellitus 25009381 E11.9 [id number] Lan Edmonds MD [facility] [address] [place] [address] [address] [place] [address] 05/31/2023 09:56:48 05/31/2023 10:28:14 Fatigue 52838330 R53.83 [id number] Lan Edmonds MD [facility] [address] [facility] [address] [place] [address] 07/05/2023 08:31:51 07/05/2023 09:09:41 Type 2 diabetes mellitus without complication 429638886 E11.9 Add Claire hopefully we can get [...] ID Guarantor Name 06/03/2020 1 [place] [id number] Eliezer Bob [id number] Nilesh Rojas 07/05/2023 1 [employer] (PPO) [id number] Nilesh Rojas [id number] Nilesh Rojas 12/12/2021 1 [employer] (POS) [id number] Nilesh Rojas [id number] Nilesh Rojas Notes Date Note Type Note [...] today. Lan Edmonds MD [address], [place], [address], [place] [facility] 06/12/2022 11:30:31 09/11/2022 text/html She is here [...] bit Lan Edmonds MD [address], [place], [address], [facility] & [place] 09/11/2022 11:32:50 12/11/2022 text/html she is here [...] of a Raynaud's attack. She saw a research technician today and they were unsuccessful. 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 Currently not on medication for this. Lan Edmonds MD [address], [place], [address], [facility] & [place] 12/11/2022 11:57:41 07/05/2023 text/html She is here [...] intermittently. Lan Edmonds MD [address], [place], [address], [facility] & [place] 07/05/2023 11:33:45 OBGyn Episode No OBEpisode recorded.
--- OUTSIDE RECORDS SUMMARY | 2024-11-21 07:20 | XMS_ITS | Referral Summary ---
Author Organization [employer] ([place], [place], [place], [place]) Address [address] [place] [address] Care Team Providers Care Well Service Derrick Worker Name Role Phone Calin Edmonds MD Primary Care Provider [phone] Allergies No known active allergies Medications metFORMIN (GLUCOPHAGE) 850 MG tablet Take 1 tablet (850 mg total) by mouth. Active predniSONE (DELTASONE) 5 MG tabletIndications:M CTD (mixed connective tissue disease) ([facility]) Take 1 tablet daily as needed for major joint flares.. 30 tablet 2 Active glimepiride (AMARYL) 4 MG tablet Take 1 tablet (4 mg total) by mouth every morning before breakfast. Active B-complex with vitamin C tablet Take 1 tablet by mouth daily. Active leflunomide (ARAVA) 10 MG tabletIndications:M CTD (mixed connective tissue disease) ([facility]) Take 1 tablet (10 mg total) by mouth every morning. 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 Positive antinuclear antibody 05/30/2021 Joint stiffness 05/01/2021 Social History Tobacco Use Types Packs/Day Years Used Date Smoking Tobacco: Never Smokeless Tobacco: Never Tobacco Cessation:Counseling Given: No Alcohol Use Standard Drinks/Week Comments Not Currently 0 (1 standard drink = 0.6 oz pur e alcohol) Food Insecurity Answer Date Recorded Food run [...] Date Omer rded Speak language other than Canadian at home Not on file 06/04/2023 Want help with school or training Not on file 06/04/2023 Substance Use Answer Date Recorded Used [...] Plan of Treatment Not on file Insurance [employer] Care Teams Well Service Derrick Worker Relationship Specialty Start Date End Date Calin Edmonds MD [address] [address] PCP - General Family Medicine 03/13/22
--- OUTSIDE RECORDS SUMMARY | 2024-11-21 07:20 | XMS_ITS | Clinical Summary ---
Author Organization [employer] ([place], [place], [place], [place]) Address [address] [place] [address] Care Team Providers Care Astronomy Instructor Name Role Phone Calin Edmonds MD Primary Care Provider [phone] Allergies No known active allergies Medications metFORMIN (GLUCOPHAGE) 850 MG tablet Take 1 tablet (850 mg total) by mouth. Active predniSONE (DELTASONE) 5 MG tabletIndications:M CTD (mixed connective tissue disease) ([facility]) Take 1 tablet daily as needed for [...] Date Omer rded Speak language other than Austrian at home Not on file 06/04/2023 Want [...] 11/10/2017, 11/10/2017, Additional history exists COVID-19 VACCINE (1 - 2023-2 5 season) 2024 Tobacco Cessation Counseling and Screening (12+) 06/18/2024 06/18/2023 Influenza Vaccine (#1) 2025 Respiratory Syncytial Virus (RSV) Adult or (1 - 1-dose 75+ series) 2035 Insurance [facility] Care Teams Astronomy Instructor Relationship Specialty Start Date End Date Calin Edmonds MD [address] [address] PCP - General Family Medicine 03/13/22
--- OUTSIDE RECORDS SUMMARY | 2024-11-21 07:20 | XMS_ITS | Encounter Summary ---
Author Organization [facility] Address [address] [place] [address] Care Team Providers Care Agricultural Produce Washer Name Role Phone Sharon Mcguire MD Unavailable Encounter Details Date Type Department Care Team (Latest Contact Info) Description 10/22/2024 Results Follow-Up [facility] [address] [place] [address] Sharon Mcguire MD [address] [place] [address] CBC WITH AUTO DIFF-QUEST, CREATININE-QUEST, HEPATIC FUNCTION [...] on file documented as of this encounter Visit Diagnoses Not on filedocumented in this encounter Care Teams Agricultural Produce Washer Relationship Specialty Start Date End Date Sharon Mcguire MD [address] [place] [address] Internal Medicine-Rheumatology 09/02/23 documented as of this encounter
== END 2024-11-21 23:59 | disposition home or self-care (01) ==
LOC: RAD 07:19
PROVIDERS: PCP Family Medicine; Visit Provider Podiatrist
DX: Z47.89 Encounter for other orthopedic aftercare (principal); Z98.890 Other specified postprocedural states
CPT/HCPCS: 73630

== ENCOUNTER 2025-02-05 21:42 | Outpatient (CLI) | payer OTHER, SELFPAY ==
--- OUTSIDE RECORDS SUMMARY | 2025-02-05 21:44 | XMS_ITS | Encounter Summary ---
[facility] Organization [facility] Address [address] [place] [address] Care Team Providers Care Road Design Engineer Name Role Phone Calin Edmonds MD Primary Care Provider [phone] Encounter Details Date Type Department Care Team (Late st Contact Info) Description 07/20/2012 Conversion Encounter [facility] HISTORICAL CONV [address] [place] [address] Interface, See Report Social History Tobacco Use Types Packs/Day Years Used Date Smoking Tobacco: Never Assessed Comments Unknown Sex and Gender Information Value Date Recorded Sex Assigned at Not on file Legal Sex Female 12:18 PM EDT Gender Identity Not on file Sexual Orientation Not on file documented as of this encounter Progress Notes * Interface, See Report - 07/20/2012 12:00 AM EST Patient: NILESH ROJAS MR #: : [id number] Date of Visit: 07/20/2012 Attending Physician: Stacey Fitzpatrick Dictated By: ORIN CHAPMAN Referring Physician: Diagnosis: ANNUAL Allergies: NKDA History of present illness: ANNUAL. PT. CONTINUES TO C/O VAGINAL DRYNESS. 52 yo female here for annual exam. She is doing well. Still complains of vaginal dryness, but prefers to use the vagifem overthe creams due to decreased mess. Her bowels and bladder are working well. She denies pelvic pain or discomfort. Her mamm is UTD . She needs refills for premarin and vagifem. Present family and/or social history: Family history: Father - Melanoma Social history: Tobacco Y N PPD ETOH Y N # Drinks Marital Status Occupation Past medical history: Medical: ARTHRITIS; SINUS; DIABETES Surgical: ADENIKE/BSO SAMPSON; GALLBLADDER Health maintenance: Mammogram: Colonoscopy: 01/16/12 Pap smear: 06/18/11 Tumor Marker: CT Scan: BMD: Review of systems: Constitutional: No change in weight, no excessive fatigue Psychiatric: No history of anxiety, depression, bipolar disorder, or insomnia Eyes: WEARS GLASSES. Vision unchanged Ears, Nose, Mouth, Throat: +SINUS. Hearing normal, no swallowing difficulties, no sore throat Endocrine: +DIABETES. No history of thyroid disease, heat/cold intolerance Lymphatic: No enlarged lymph nodes Respiratory: No shortness of breath, cough, asthma, wheezing Cardiovascular: No angina, orthopnea, edema, hypertension, murmur, hyperlipidemia Gastrointestinal: No constipation or diarrhea, no reflux, nausea, or vomiting Genitourinary: No dysuria, hematuria, urgency, or frequency Neurologic: No numbness, weakness, syncope, seizures, or headaches Musculoskeletal: +ARTHRITIS. No muscle weakness, or joint pain Integumentary: No new skin lesions Gynecologic: No abnormal bleeding, vaginal discharge, pelvic pain, of h/o abnml pap smears LMP: P: 2 Vag Deliveries: 2 C-sec: 0 Hematologic: No history of anemia, easy bruising, or blood clots Medications: See documented medication list. Physical exam: Constitutional: Weight 210 [place] 70 [place] [address] Pulse Temp Neurological/Psychiatric: HEENT: Neck: Respiratory: Cardiovascular: Breasts: Gastrointestinal: Lymphatic: Extremities: Skin: Gynecologic: External Genitalia: Vagina: , white d/c in vagina, pt used vaginal estrogen last pm Cervix: Uterus: Ovaries: Parametria: Smooth. Rectovaginal: Hemoccult: Procedure note: Assessment: Annual Well Woman Exam Vaginal dryness H/O AUB Plan: Mamm 10/27 Premarin 0.9 mg PO Qday # 90 refills x 3, and # 30 0 refills sent to pharmacy Vagifem 10 mcg tab 1 PV 3 night per week at bedtime # 3 months refills x 3 and # 12 0 refills sent to pharmacy RTC Approved by: Stacey Fitzpatrick 2:14 PM , 07/20/2012 cc: documented in this encounter Plan of Treatment Not on file documented as of this encounter Visit Diagnoses Not on filedocumented in this encounter Care Teams Road Design Engineer Relationship Specialty Start Date End Date Calin Edmonds MD [address] [facility] [address] [place] [address] PCP - General Family Medicine 08/26/16 documented as of this encounter
--- OUTSIDE RECORDS SUMMARY | 2025-02-05 21:44 | XMS_ITS | Referral Summary ---
Author Organization [facility] ([place], [place], [place], [place]) Address [address] [place] [address] Care Team Providers Care Vegetable Grader Name Role Phone Calin Edmonds MD Primary Care Provider [phone] Allergies No known active allergies Medications metFORMIN (GLUCOPHAGE) 850 MG tablet Take 1 tablet (850 mg total) by mouth. Active predniSONE (DELTASONE) 5 MG tabletIndications:M CTD (mixed connective tissue disease) ([facility]) Take 1 tablet daily as [...] Date Omer rded Speak language other than Romansh at home Not on file 06/04/2023 Want [...] on file Insurance [employer] Care Teams Vegetable Grader Relationship Specialty Start Date End Date Calin Edmonds MD [address] [address] PCP - General Family Medicine 03/13/22
--- OUTSIDE RECORDS SUMMARY | 2025-02-05 21:44 | XMS_ITS | Clinical Summary ---
Author Organization [employer] ([place], [place], [place], [place]) Address [address] [place] [address] Care Team Providers Care Breakfast Attendant Name Role Phone Calin Edmonds MD Primary Care Provider [phone] Allergies No known active allergies Medications metFORMIN (GLUCOPHAGE) 850 MG tablet Take 1 tablet (850 mg total) by mouth. Active predniSONE (DELTASONE) 5 MG tabletIndications:M CTD (mixed connective tissue disease) ([facility]) Take 1 tablet daily as needed [...] Date Omer rded Speak language other than Khmer at home Not on file 06/04/2023 Want [...] 08/19/19 19, 11/10/2017, 11/10/2017, Additional history exists Tobacco Cessation Counseling and Screening (12+) 06/18/2024 06/18/2023 COVID-19 VACCINE (1 - 2023-2 5 season) 2025 Influenza Vaccine (#1) 2025 Respiratory Syncytial Virus (RSV) Adult or (1 - 1-dose 75+ series) 2035 Insurance [facility] COMMERCIAL Care Teams Breakfast Attendant Relationship Specialty Start Date End Date Calin Edmonds MD [address] [address] PCP - General Family Medicine 03/13/22
--- OUTSIDE RECORDS SUMMARY | 2025-02-05 21:44 | XMS_ITS | Encounter Summary ---
Author Organization [facility] Address [address] [place] [address] Care Team Providers Care Shroud Line Tier Name Role Phone Sharon Mcguire MD Unavailable Encounter Details Date Type Department Care Team (Latest Contact Info) Description 10/22/2024 Results Follow-Up [facility] [address] [place] [address] Sharon Mcguire MD [address] [place] [address] CBC WITH AUTO DIFF-QUEST, CREATININE-QUEST, HEPATIC FUNCTION [...] Care Team (Late st Contact Info) Description 05/18/2025 1:00 PM EST Office Visit [facility] [address] [address] Josue Echeverria MD [address] [place] [address] documented as of this encounter Visit Diagnoses Not on filedocumented in this encounter Care Teams Shroud Line Tier Relationship Specialty Start Date End Date Sharon Mcguire MD [address] [place] [address] Internal Medicine-Rheumatology 09/02/23 documented as of this encounter
--- OUTSIDE RECORDS SUMMARY | 2025-02-05 21:44 | XMS_ITS | Clinical Summary ---
[facility] Address [address] [place] [address] Care Team Providers Care Finance Teacher Name Role Phone Calin Edmonds MD Primary Care Provider [phone] Allergies No known active allergies Medications metFORMIN (GLUCOPHAGE) 850 MG tablet Take 850 mg by mouth 3 (Three) Times a Day. Active etodolac (LODINE) 200 MG capsule Take 200 mg by mouth As Needed. Active estrogens, conjugated, (PREMARIN) 1.25 MG tablet Take 1 tablet by mouth Daily. 30 tablet 6 04/26/2017 Active Active Problems Problem Noted Date Diagnosed Date Well female exam with routine gynecological exam 09/21/2016 History of abnormal uterine bleeding 09/21/2016 Family History Medical History Relation Name Comments Melanoma Father Breast cancer Maternal Aunt DX AGE UNKNOW N Breast cancer Maternal Cousin post menopa usal Breast cancer Paternal Cousin postmenopau rolan Ovarian cancer Neg Hx Relation Name Status Comments Father Maternal Aunt Maternal Cousin Paternal Cousin Social History Tobacco Use Types Packs/Day Years Used Date Smoking Tobacco: Never Alcohol Use Standard Drinks/Week Comments No 0 (1 standard drink = 0.6 oz pur e alcohol) Abuse Screen Answer Date Recorded Unsafe at Home or Work/School Not on file Feels Threatened by Someone? Not on file 01/2023 Does Anyone Keep You from Co ntacting Others or Doint Things Outside the Home? Not on file 02/22/2023 Physical Sign of Abuse Present Not on file 1 Housing Stability Answer Date Recorded Current Living Arrangements Not on file 01/2023 Potentially Unsafe Housing Conditions Not on johnny e 02/22/2023 Family and Community Support Answer Tristian e Recorded Help with Day-to-Day Activities Not on file 02/22/2023 Lonely or Isolated Not on file 02/22/2023 Employment Answer Date Recorded Do you want help finding or keeping work or a caryn b? Not on file 02/22/2023 Disabilities Answer Date Recorded Concentrating, Remembering, or Making Decisions Difficulty Not on file 02/22/2023 Doing Errands Independently Difficulty Not on fi le 02/22/2023 Education Answer Date Recorded Help with school or training? 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 Not on file Not on file Last Filed Vital Signs Vital Sign Reading Time Taken Comments Blood Pressure 121/66 09/21/2016 10:07 AM EDT Pulse 78 09/21/2016 10:07 AM EDT Temperature 36 C (96.8 F) 09/21/2016 10:07 AM EDT Respiratory Rate 18 09/21/2016 10:07 AM EDT Oxygen Saturation 98% 09/21/2016 10:07 AM EDT Inhaled Oxygen Concentration - - Weight 87.1 kg (192 lb) 09/21/2016 10:07 AM EDT Height 177.8 cm (5' 10 ) 09/21/2016 10:07 AM EDT Body Mass Index 27.55 09/21/2016 10:07 AM EDT Plan of Treatment Health Maintenance Due Date Last Done Comments TDAP/TD VACCINES (1 - Tdap) 1979 COLOGUARD 2005 COLON CANCER SCREENING [address] COLONOGRAPHY 2005 FECAL OCCULT BLOOD TEST 2005 FIT Testing (1 year) 2005 Pneumococcal Vaccine 50+ (1 of 1 - PCV) 2010 ZOSTER VACCINE (1 of 2) 2010 ANNUAL PHYSICAL 09/21/2016 HEPATITIS C SCREENING 09/21/2016 COLONOSCOPY 01/31/2017 02/01/2012 COLORECTAL CANCER SCREENING 01/31/2017 Annual Gynecologic Pelvic an d Breast Exam 09/22/2017 09/21/2016 MAMMOGRAM 06/08/2024 06/08/2022, 04/16, 02/15/2020, Additional history exists INFLUENZA VACCINE 12/15/2024 03/06/2016 Procedures Procedure Name Priority Date/Time Associated Diagnosis Comments MAMMO SCREENING DIGITAL TOMOSYNTHESIS BILATERAL W CAD Routine 06/08/2022 9:52 AM EST Screening mammogram for breast cancer SCANNED - PAP SMEAR 09/21/2016 from Last 3 Months or Most Recently Relevant to Health Maintenance Results * Mammo Screening Digital Tomosynthesis Bilateral With CAD (06/08/2022 9:52 AM EST) Anatomical Region Laterality Modality Breast N/A Mammography 06/10/2022 5:54 PM EST Impressions 06/10/2022 5:58 PM EST No mammographic findings suspicious for malignancy. RECOMMENDATION: Continue annual screening mammography. BI-RADS CATEGORY 1, NEGATIVE. CAD was utilized. The standard false-negative rate of mammography is between 10% and 25%. Complex patterns or increased breast density will markedly elevate the false-negative rate of mammography. A letter, in lay terminology, with the results of this exam will be mailed to the patient. This report was finalized on 06/10/2022 5:[address] Brittany Escalante MD. Narrative 06/10/2022 5:58 PM EST BILATERAL SCREENING MAMMOGRAM WITH TOMOSYNTHESIS: HISTORY: The patient has no personal history or significant family history of breast cancer and no focal breast complaints at the time of screening mammography. She has lost 15 pounds since her prior mammogram. TECHNIQUE: Bilateral CC and MLO low dose, full field digital mammographic images were obtained with 2-D acquisitions and tomosynthesis. COMPARISON: 05/02/2021, 02/15/2020, 08/18/2018, 09/23/2017, 08/26/2016, and 07/18/2015 FINDINGS: There are scattered areas of fibroglandular density. The fibroglandular pattern is stable. There are no suspicious masses, worrisome calcifications, nonsurgical areas of architectural distortion, or other secondary signs of malignancy. Calin Edmonds MD IMG MAMMOGRAPHY ORDERABLES Fi nal Result * SCANNED - PAP SMEAR (09/21/2016) Stacey Fitzpatrick [facility] CHART REVIEW TABS Final R esult from Last 3 Months or Most Recently Relevant to Health Maintenance Insurance [facility] Care Teams Finance Teacher Relationship Specialty Start Date End Date Calin Edmonds MD [address] [place] [address] PCP - General Family Medicine 08/26/16
--- OUTSIDE RECORDS SUMMARY | 2025-02-05 21:44 | XMS_ITS | Clinical Summary ---
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, rest mariama panel negative, she has a diagnosis of MCTD( diagnosed by her previous cover stripper ) , but repeat labs showed negative GISSELLE , HYDRAULIC CORRUGATING MACHINE OPERATOR and mariama panel, diagnosis was changed tos [...] (10/19/2024): Medication safety questionnaire DVT:no PE: no DE:no Heart failure: no Stroke: no Shingles:no diverticulitis: [...] (09/09/2023): - DEXA scan 10/06- normal BMD Surgical History Surgery Date Site/Laterality Comments HYSTERECTOMY [...] 1:00 PM EST Office Visit [facility] [address] [address] Josue Echeverria MD [address] [place] [address] Health Maintenance Due Date Last Done Comments Annual Wellness Exam 1963 COVID-19 Vaccine (#1) 1965 Lipids 1970 Diabetic Eye Exam 1978 Hemoglobin A1c 1978 Kidney Health: uACR 1978 DTaP/TDaP/Td (1 - Tdap) 1979 Pneumococcal Vaccine 50+ (1 of 2 - PCV) 1979 Zoster (1 of 2) 1979 Cervical Cancer Screening 1981 Pap Smear 1981 HPV/Pap Cotest 1990 Cologuard 2005 FIT 2005 Sigmoidoscopy 2005 Virtual Colonography 2005 RSV or 60+ (1 - Risk 60-74 years 1-dose series) 2020 Breast Cancer Screening 06/08/2024 06/08/19, 06/08/2022, 05/02/2021, Additional history exists Influenza Vaccine [...] Procedure Name Priority Date/Time Associated Diagnosis Comments CREATININE-QUEST Routine 10/19/2024 12:0 2 PM EDT [...] Recently Relevant to Health Maintenance Results * CREATININE-QUEST (10/19/2024 12:02 PM EDT) Creatinine 0.94 0.50 - 1.05 mg/dL [facility] EGFR 68 > OR = 60 mL/min/1.73 m2 [facility] 10/19/2024 12:0 2 PM EDT 10/19/2024 12:03 PM EDT us Sharon Mcguire MD [facility] ORDERABLES Final Result [facility] [address] [place] [address] * COLONOSCOPY (01/21/2024 7:30 AM EDT) Anatomical [...] : Tissue Gastric [facility] PATHOLOGY ORDER You oV MD 01/21/2024 0712 You Vo MD ENDOSCOPY PROCEDURE ORDERABLE S Final Result * ACUTE HEPATITIS PANEL (09/09/2023 11:22 AM EDT) Hep Bs Ag Non-Reacti ve Non-Reacti ve 09/09/2023 12:55 PM EDT [facility] Hep B Core IgM Non-Reacti ve Non-Reacti ve 09/09/2023 12:55 PM EDT [facility] Hep A IgM Non-Reacti ve Non-Reacti ve 09/09/2023 12:55 PM EDT [facility] Hep C Ab Non-Reacti ve Non-Reacti ve 09/09/2023 12:55 PM EDT [facility] Blood VENOUS BLOOD / Unknown Venipuncture / Unknown 09/09/2023 11:22 AM EDT 09/09/2023 11:22 AM EDT Sharon Mcguire MD CHEMISTRY ORDERABLES Final Resul t [facility] [address] [facility] , [place] [id number] from Last 3 Months or Most Recently Relevant to Health Maintenance Insurance [employer] Care Teams Retail Sales Merchandiser Relationship Specialty Start Date End Date Sharon Mcguire MD [address] [place] [address] Internal Medicine-Rheumatology 09/02/23
[2025-02-05 23:40] LABS: Chloride 100 mmol/L (98-107); Hematocrit 41.8 % (37.0-47.0); Hemoglobin 12.7 g/dL (12.2-16.2); Immature Granulocytes % 0.2 %; Mean Corpuscular HGB Conc 30.4 g/dL (31.8-35.4); Mean Corpuscular Hemoglobin 27.9 pg (27.0-31.2); Mean Corpuscular Volume 91.7 fl (81-99); Nucleated Red Blood Cells % 0 %; Platelet Count 286 K/mm3 (142-424); Red Blood Count 4.56 M/mm3 (4.20-5.40); Red Cell Distribution Width-SD 42.6 fL; White Blood Count 5.2 K/mm3 (4.8-10.8)
[2025-02-05 23:41] LABS: Albumin Level 4.7 g/dl (3.5-5.0); Potassium 4.2 mmoL/L (3.5-5.1); Sodium 140 mmol/L (136-145)
[2025-02-05 23:43] LABS: Blood Urea Nitrogen 15 mg/dl (7-17); Creatinine,Serum 0.80 mg/dl (0.52-1.04); Estimated Glomerular Filt Rate 72 ml/min (>60); GFR (African American) 87 ML/MIN (>60)
[2025-02-05 23:44] LABS: Alanine Aminotransferase 40 U/L (12-78); Albumin/Globulin Ratio 1.5 (1.1-1.8); Alkaline Phosphatase 103 U/L (38-126); Anion Gap 17.2 mEq/L (5-15); Aspartate Amino Transferase 41 U/L (14-36); Bilirubin,Total 0.8 mg/dl (0.2-1.3); Calcium 9.8 mg/dl (8.4-10.2); Carbon Dioxide 27 mmol/L (22.0-30.0); Globulin 3.1 g/dL (1.3-3.2); Glucose 270 mg/dl (74-100); Total Protein,Serum 7.8 g/dl (6.3-8.2)
== END 2025-02-05 23:59 | disposition home or self-care (01) ==
LOC: LAB.DROPOF 21:43
PROVIDERS: PCP Family Medicine; Visit Provider Family Medicine
DX: M06.9 Rheumatoid arthritis, unspecified (principal); E11.9 Type 2 diabetes mellitus without complications
CPT/HCPCS: 80053; 85025

== ENCOUNTER 2025-02-20 07:07 | Outpatient (CLI) | payer OTHER, SELFPAY ==
--- NOTE | 2025-02-20 07:10 | XR_ITS ---
FINAL REPORT CLINICAL HISTORY: post-op evaluation of Right 1st MTPJ fusion COMPARISON: CT dated 08/21/2024 FINDINGS: RIGHT FOOT Three views were obtained. There are postoperative changes at the first metatarsal phalangeal joint from fusion. The hardware is intact. In comparison with the prior CT, there has been interval worsening of joint space narrowing at the second metatarsal phalangeal joint and interval worsening of subchondral lucency which is nonspecific. 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 IMPRESSION: Postoperative changes of the first metatarsophalangeal joint with hardware intact. Progressive joint space narrowing and subchondral change of the second metatarsal phalangeal joint, could be degenerative. Recommend clinical correlation. Reviewed, Interpreted and Dictated by Krissy John MD Transcribed by Zelda Riggs Authenticated and [facility]
--- OUTSIDE RECORDS SUMMARY | 2025-02-20 07:10 | XMS_ITS | Referral Summary ---
Author Organization [employer] ([place], [place], [place], [place]) Address [address] [place] [address] Care Team Providers Care Business Support Name Role Phone Calin Edmonds MD Primary Care Provider [phone] Allergies No known active allergies Medications metFORMIN (GLUCOPHAGE) 850 MG tablet Take 1 tablet (850 mg total) by mouth. Active predniSONE (DELTASONE) 5 MG tabletIndications:M CTD (mixed connective tissue disease) ([facility]) Take 1 tablet daily as [...] Date Omer rded Speak language other than [place] Citizen at home Not on file 06/04/2023 Want [...] on file Insurance [employer] Care Teams Business Support Relationship Specialty Start Date End Date Calin Edmonds MD [address] [address] PCP - General Family Medicine 03/13/22
--- OUTSIDE RECORDS SUMMARY | 2025-02-20 07:10 | XMS_ITS | Clinical Summary ---
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 ) , but repeat labs showed negative GISSELLE , LICENSED VETERINARY TECHNICIAN and mariama panel, diagnosis was changed tos [...] (10/19/2024): Medication safety questionnaire DVT:no PE: no HI:no Heart failure: no Stroke: no Shingles:no diverticulitis: [...] 1:00 PM EST Office Visit [facility] [address] [address] Josue Echeverria MD [address] [place] [address] Health Maintenance Due Date Last [...] EDT) Creatinine 0.94 0.50 - 1.05 mg/dL [facility] EGFR 68 > OR = 60 mL/min/1.73 m2 [facility] 10/19/2024 12:0 2 PM EDT 10/19/2024 12:03 PM EDT us Sharon Mcguire MD [facility] ORDERABLES Final Result [facility] [address] [place] [address] * COLONOSCOPY (01/21/2024 7:30 AM EDT) Anatomical [...] Esophagus [facility] PATHOLOGY ORDER You Vo MD 01/21/2024711 2 : Tissue Gastric [facility] PATHOLOGY ORDER You Vo MD 01/21/2024 0712 You Vo MD ENDOSCOPY PROCEDURE ORDERABLE S Final Result * ACUTE HEPATITIS PANEL (09/09/2023 11:22 AM EDT) Hep Bs Ag Non-Reacti ve Non-Reacti ve 09/09/2023 12:55 PM EDT PREFERRED LAB [facility] Hep B Core IgM Non-Reacti ve Non-Reacti ve 09/09/2023 12:55 PM EDT [facility] Hep A IgM Non-Reacti ve Non-Reacti ve 09/09/2023 12:55 PM EDT PREF[facility] Hep C Ab Non-Reacti ve Non-Reacti ve 09/09/2023 12:55 PM EDT [facility]REF[facility] Blood VENOUS BLOOD / Unknown Venipuncture / Unknown 09/09/2023 11:22 AM EDT 09/09/2023 11:22 AM EDT Sharon Mcguire MD CHEMISTRY ORDERABLES Final Resul t [facility] [address] [facility] , [place] [id number] from Last 3 Months or Most Recently Relevant to Health Maintenance Insurance [employer] Care Teams Traffic Attendant Relationship Specialty Start Date End Date Sharon Mcguire MD [address] [facility], [place] [address] Internal Medicine-Rheumatology 09/02/23
--- OUTSIDE RECORDS SUMMARY | 2025-02-20 07:10 | XMS_ITS | Clinical Summary ---
Author Organization [employer] ([place], [place], [place], [place]) Address [address] [place] [address] Care Team Providers Care Insurance Office Manager Name Role Phone Calin Edmonds MD Primary Care Provider [phone] Allergies No known active allergies Medications metFORMIN (GLUCOPHAGE) 850 MG tablet Take 1 tablet (850 mg total) by mouth. Active predniSONE (DELTASONE) 5 MG tabletIndications:M CTD (mixed connective tissue disease) ([facility]) Take 1 tablet daily as [...] Date Omer rded Speak language other than Tunisian at home Not on file 06/04/2023 Want [...] (1 - 1-dose 75+ series) 2035 Insurance [facility] COMMERCIAL Care Teams Insurance Office Manager Relationship Specialty Start Date End Date Calin Edmonds MD [address] [address] PCP - General Family Medicine 03/13/22
--- OUTSIDE RECORDS SUMMARY | 2025-02-20 07:10 | XMS_ITS | Clinical Summary ---
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
--- OUTSIDE RECORDS SUMMARY | 2025-02-20 07:10 | XMS_ITS | Encounter Summary ---
Author Organization [facility] Address [address] [place] [address] Care Team Providers Care Jockey Room Custodian Name Role Phone Sharon Mcguire MD Unavailable Encounter Details Date Type Department Care Team (Latest Contact Info) Description 10/22/2024 Results Follow-Up [facility] [address] [place] [address] Sharon Mcguire MD [address] [place] [address] CBC WITH AUTO DIFF-QUEST, CREATININE-QUEST, HEPATIC FUNCTION [...] 1:00 PM EST Office Visit [facility] [address] [address] Josue Echeverria MD [address] [place] [address] documented as of this encounter Visit Diagnoses Not on filedocumented in this encounter Care Teams Jockey Room Custodian Relationship Specialty Start Date End Date Sharon Mcguire MD [address] [place] [address] Internal Medicine-Rheumatology 09/02/23 documented as of this encounter
--- OUTSIDE RECORDS SUMMARY | 2025-02-20 07:10 | XMS_ITS | Encounter Summary ---
[facility] [address] [place] [address] Care Team Providers Care Radio Time Buyer Name Role Phone Calni Edmonds MD Primary Care Provider [phone] Encounter Details Date Type Department Care Team (Late st Contact Info) Description 07/20/2012 Conversion Encounter [facility] [address] [place] [address] Interface, See Report Social History [...] exam: Constitutional: Weight 210 [place] 70 [place] [address] Pulse Temp Neurological/Psychiatric: HEENT: Neck: Respiratory: Cardiovascular: [...] on filedocumented in this encounter Care Teams Radio Time Buyer Relationship Specialty Start Date End Date Calin Edmonds MD [address] [facility] [address] [place] [address] PCP - General Family Medicine 08/26/16 documented as of this encounter
== END 2025-02-20 23:59 | disposition home or self-care (01) ==
LOC: RAD 07:08
PROVIDERS: PCP Family Medicine; Visit Provider Podiatrist
DX: M96.0 Pseudarthrosis after fusion or arthrodesis (principal)
CPT/HCPCS: 73630